=== PATIENT | female | born 1980 ===

== ENCOUNTER 2020-09-06 11:29 | Day surgery (SDC) | payer OTHER, SELFPAY ==
[2020-09-02 19:53] VITALS: BMI 33.1
--- NOTE | 2020-09-05 09:10 | HO.ANESPROP2 ---
Documented by User: Marileeher Pearsonney 09/05/20 09:11 HPI - Anesthesia Eval Consult details Narrative: 40yo F for Medial Branch Block,Bilateral Diagnostic L3,L4,L5, PMFSH Past Medical History Medical History Anxiety Asthma DISH (disseminated idiopathic skeletal hyperostosis) Fibromyalgia GERD (gastroesophageal reflux disease) Hiatal hernia History of headache History of lupus Surgical History Surgical History History of esophagogastroduodenoscopy (EGD) Hx of arthroscopy of knee Hx of cholecystectomy Hx of gastric bypass Social History Social History Smoking Status: Never smoker Second Hand Smoke Exposure: No Use of substances other than those prescribed or required for medical reasons: No Advance Directives: No Advance Directives Information Provided: No Advance Directives on File: No Recently lost weight without trying: No Meds Allergies Allergy/AdvReac Type Severity Reaction Status Date / Time sumatriptan [SUMATRIPTAN] Allergy Intermediate PALPITATION Verified 08/12/20 09:54 S Home Medications Medication Instructions Recorded Confirmed Type cholecalciferol (vitamin D3) 25 mcg PO DAILY 08/12/20 09/02/20 History [Vitamin D3] cyclobenzaprine 10 mg PO BEDTIME 08/12/20 09/02/20 History docusate sodium [DOK] 1 cap PO DAILY 08/12/20 09/02/20 History duloxetine 30 mg PO DAILY 08/12/20 09/02/20 History lansoprazole 30 mg PO DAILY 08/12/20 09/02/20 History nabumetone 1 tab PO BID 08/12/20 09/02/20 History sucralfate [Carafate] 10 ml PO BID 08/12/20 09/02/20 History venlafaxine 75 mg PO DAILY 08/12/20 09/02/20 History topiramate 25 mg PO DAILY 09/02/20 09/02/20 History Exam Exam Date and Time: September 05, 2020 0910 Height,Weight and Vital Signs: Height 5 ft 3 in Weight 84.822 kg Assessment and Plan Assessment Anesthesia Assessment: Chart Reviewed Documented by User: Nahid Pete MD 09/06/20 14:13 PMFSH Past Medical History Medical History Anxiety Asthma DISH (disseminated idiopathic skeletal hyperostosis) Fibromyalgia GERD (gastroesophageal reflux disease) Hiatal hernia History of headache History of lupus Surgical History Surgical History History of esophagogastroduodenoscopy (EGD) Hx of arthroscopy of knee Hx of cholecystectomy Hx of gastric bypass Social History Social History Smoking Status: Never smoker Second Hand Smoke Exposure: No Use of substances other than those prescribed or required for medical reasons: No Advance Directives: No Advance Directives Information Provided: No Advance Directives on File: No Recently lost weight without trying: No Meds Allergies Allergy/AdvReac Type Severity Reaction Status Date / Time sumatriptan [SUMATRIPTAN] Allergy Intermediate PALPITATION Verified 08/12/20 09:54 S Home Medications Medication Instructions Recorded Confirmed Type cholecalciferol (vitamin D3) 25 mcg PO DAILY 08/12/20 09/02/20 History [Vitamin D3] cyclobenzaprine 10 mg PO BEDTIME 08/12/20 09/02/20 History docusate sodium [DOK] 1 cap PO DAILY 08/12/20 09/02/20 History duloxetine 30 mg PO DAILY 08/12/20 09/02/20 History lansoprazole 30 mg PO DAILY 08/12/20 09/02/20 History nabumetone 1 tab PO BID 08/12/20 09/02/20 History sucralfate [Carafate] 10 ml PO BID 08/12/20 09/02/20 History venlafaxine 75 mg PO DAILY 08/12/20 09/02/20 History topiramate 25 mg PO DAILY 09/02/20 09/02/20 History Exam Airway Mallampati Class: I TM Dist: >3cm Neck ROM: Full Loose/Missing/Broken Teeth: No Heart: rrr Lungs: nl Other: ao Assessment and Plan Assessment Anesthesia Assessment: Anesthesia Plan Discussed and Chart Reviewed Final Anesthetic Review NPO: Yes ASA Class: II and III Final Preanesthetic Review: No Changes in Pt Med Stat, Meds/Allgs Chart Reviewed, Consent Obtained/Reviewed and Anes Risks/Benef Reviewed Patient Risk: Low Procedure Risk: Low Anesthetic Plan Anesthetic Plan: MAC: Disposition: Standard PACU
--- NOTE | 2020-09-06 08:18 | MHC.SHP ---
Pre-Procedural Eval Section B Chief Complaint: Spondylosis of lumbar Region Details of Present Illness: as above Relevant Family History (Specify if Yes): No Relevant Social History: None Present Medications: None Medical History: No relevant PMH History of Previous Operations: No relevant previous surgery Allergies: Allergies Allergy/AdvReac Type Severity Reaction Status Date / Time sumatriptan [SUMATRIPTAN] Allergy Intermediate PALPITATION Verified 08/12/20 09:54 S Review of Systems Sugical H&P ROS: Negative: Constitution, Cardiovascular, Respiratory, Neurological, Psychiatric, Hem-Onc, Allergic/Immunologic, Gastrointestinal, Genitourinary, Musculoskeletal, Integumentary, Endocrine and Eyes/Ears/Nose/Throat Exam Surgical H&P Exam: Normal: HEENT, Normal: Heart, Normal: Lungs, Normal: Extremities, Normal: Abdomen, Normal: Skin and Normal: Neurological Plan Diagnosis/Plan: Unchanged Patient has been examined and remains a candidate for the planned procedure
[2020-09-06 12:59] VITALS: BP 124/104; PULSE 90; RESP 18; TEMP 36.9; O2SAT 98
[2020-09-06 13:12] LABS: UPreg QC Valid YES; Urine Pregnancy NEGATIVE (NEGATIVE)
[2020-09-06] MEDS: Lactated Ringers 1,000 ML 100 ML IVCONT (13:15)
[2020-09-06 13:16] VITALS: BP 125/73; PULSE 84; RESP 18
--- NOTE | 2020-09-06 14:12 | MHC.SHP ---
Pre-Procedural Eval Section B Chief Complaint: Spondylosis of lumbar Region Relevant Family History (Specify if Yes): No Relevant Social History: None Present Medications: None Medical History: No relevant PMH History of Previous Operations: No relevant previous surgery Allergies: Allergies Allergy/AdvReac Type Severity Reaction Status Date / Time sumatriptan [SUMATRIPTAN] Allergy Intermediate PALPITATION Verified 08/12/20 09:54 S Review of Systems Sugical H&P ROS: Negative: Constitution, Cardiovascular, Respiratory, Neurological, Psychiatric, Hem-Onc, Allergic/Immunologic, Gastrointestinal, Genitourinary, Musculoskeletal, Integumentary, Endocrine and Eyes/Ears/Nose/Throat Exam Surgical H&P Exam: Normal: HEENT, Normal: Heart, Normal: Lungs, Normal: Extremities, Normal: Abdomen, Normal: Skin and Normal: Neurological Plan Diagnosis/Plan: Unchanged Patient has been examined and remains a candidate for the planned procedure
--- NOTE | 2020-09-06 14:14 | FL_ITS ---
EXAMINATION: XR FLUOROSCOPY WITH IMAGES CLINICAL INFORMATION: Medial branch block COMPARISON: MRI lumbar spine 01/10/2020 TECHNIQUE: Fluoroscopy performed by Dr. Jerry Wagner. Fluoroscopy time: 0.7 minutes DAP: 9.1 Gycm2 Images: 6 FINDINGS: There are bilateral spinal needles at the outer aspects of the L3, L4, and L5 neural foramen. Contrast is seen in the nerve sheaths with some transforaminal epidural extension. No visible vascular communication. FL/FL guidance in OR IMPRESSION: Fluoroscopy for pain management procedures.
[2020-09-06 14:47] VITALS: BP 129/83; PULSE 76; RESP 20; TEMP 37.1; O2SAT 99
[2020-09-06 15:03] VITALS: BP 124/77; PULSE 84; RESP 20; TEMP 37.1; O2SAT 99
--- NOTE | 2020-09-06 16:41 | PM.OP ---
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 Implants: None Surgeon: Jerry Wagner MD Anesthesia: MAC Estimated blood loss (mL): 0 Pathology: none sent Condition: stable Disposition: PACU
--- NOTE | 2020-09-06 16:43 | W.PM.OPN ---
Operative Note Operative Note Date of Service: 09/06/20 Narrative: Informed consent was explained to the patient. All questions were explained and answered. The patient was taken inside the operating room where she was positioned prone on the operating table. [employer] monitors were applied. Patient was deeply sedated. Opioids were avoided during the sedation. Time-out was performed delineating correct site, side, the nature of the procedure, patient's allergy, preoperative antibiotic if needed. All operating room staff was participating in OR time-out procedure. The lower back was prepped with ChloraPrep and draped with sterile towels. Sterilely draped C-arm was brought over the operating field and sq picture of L4-and L5 vertebra and S1 AREA were delineated on the screen. Point of interest were delineated as connection of superior articular process of L4 and L5 vertebra bilaterally with corresponding transverse processes as well as connection of the sacral alae bilaterally with superior articular process of S1. The projection of the point of interest to the skin were injected with the small amount of local anesthetic lidocaine 2% 1-1.5 cc. After that 22 gauge regular spinal needles were driven to the point of interest in tunnel vision fashion. After needles gently contacted the bone at the point of interests the needle was injected with small amount of bupivacaine 0.5%-1cc. Upon completion of the injections needles were removed and sterile dressings were applied patient was awaken and taking outside of the operating room to recovery room where she recovered uneventfully. She went home without immediate complications.
== END 2020-09-06 15:30 | disposition home or self-care (01) ==
PROVIDERS: Nurse Practitioner; PCP Internal Medicine; Visit Provider Anesthesiology
PROC: (CPT 64493; principal; 2020-09-06 13:50)
DX: M47.816 Spondylosis without myelopathy or radiculopathy, lumbar region (principal); M48.10 Ankylosing hyperostosis [Forestier], site unspecified; J45.909 Unspecified asthma, uncomplicated; Z98.84 Bariatric surgery status; Z79.899 Other long term (current) drug therapy; Z88.8 Allergy status to other drugs, medicaments and biological substances
CPT/HCPCS: 64493; 64494 ×2; 81025; J2250; J3010; Q9967

== ENCOUNTER 2020-09-24 19:48 | Emergency (ER) | payer OTHER, SELFPAY ==
[2020-09-24 20:02] VITALS: BP 137/80; PULSE 79; RESP 18; TEMP 35.7; O2SAT 98; BMI 32.9
--- NOTE | 2020-09-24 21:07 | XR_ITS ---
EXAMINATION: XR HIP, LEFT CLINICAL INFORMATION: Hip left hip on wall COMPARISON: CT abdomen pelvis 08/14/2019 TECHNIQUE: AP pelvis with AP and frog-leg lateral views of the left hip FINDINGS: No hip or pelvic fracture seen. There are degenerative changes of the bilateral hips with left greater than right lateral acetabular osteophytosis. Sacroiliac joints are maintained. Small enthesophyte at the greater trochanter. XR/XR hip LT w PEL1V IMPRESSION: No acute osseous abnormality. Degenerative changes.
--- NOTE | 2020-09-24 21:32 | ED_ITS ---
HPI - Fall General Chief Complaint: Fall Stated Complaint: fall work related Time Seen by Provider: 09/24/20 22:37 Source: patient Mode of arrival: ambulatory Limitations: no limitations History of Present Illness HPI Narrative: Patient presents to the ED for left hip pain after hitting left hip on the wall while doing decorations. Patient denies falling to the ground, hitting head, loss of consciousness, or any other physical complaints. Related Data Home Medications Medication Instructions Recorded Confirmed cholecalciferol (vitamin D3) 25 mcg PO DAILY 08/12/20 09/17/20 [Vitamin D3] cyclobenzaprine 10 mg PO BEDTIME 08/12/20 09/17/20 docusate sodium [DOK] 1 cap PO DAILY 08/12/20 09/17/20 lansoprazole 30 mg PO DAILY 08/12/20 09/17/20 nabumetone 1 tab PO BID 08/12/20 09/17/20 sucralfate [Carafate] 10 ml PO BID 08/12/20 09/17/20 venlafaxine 75 mg PO DAILY 08/12/20 09/17/20 topiramate 25 mg PO DAILY 09/02/20 09/17/20 spakxaappl-ncparmercxkqa-sjegnbow 1 tab PO DAILY PRN 09/17/20 09/17/20 50 mg-325 mg-40 mg tablet duloxetine 60 mg capsule,delayed 60 mg PO DAILY 09/17/20 09/17/20 release topiramate 50 mg tablet mg PO 09/17/20 09/17/20 Previous Rx's Medication Instructions Recorded hydroxyzine HCl 25 mg tablet 25 mg PO BID PRN 30 Days #60 tab 09/09/20 tramadol 50 mg tablet 100 mg PO Q6H PRN 30 Days #240 tab 09/09/20 pregabalin 50 mg capsule 50 mg PO BEDTIME 30 Days #30 cap 09/17/20 Allergies Allergy/AdvReac Type Severity Reaction Status Date / Time sumatriptan [SUMATRIPTAN] Allergy Intermediate PALPITATION Verified 09/24/20 20:07 S Review of Systems Review of Systems: Yes all other systems are reviewed and are negative Constitutional: Constitutional: Reports as per HPI and Reports no additional constitutional complaints Eyes: Eyes: Reports as per HPI and Reports no additional eye complaints ENT: Reports system reviewed and no additional complaints, except as documented and Reports as per HPI Cardiovascular: Cardiovascular: Reports as per HPI and Reports no additional cardiovascular complaints Respiratory: Respiratory: Reports as per HPI and Reports no additional respiratory complaints Gastrointestinal: Gastrointestinal: Reports as per HPI and Reports no additional gastrointestinal complaints Genitourinary: Genitourinary: Reports no additional female genitourinary complaints and Reports as per HPI Musculoskeletal: Musculoskeletal: Reports no additional musculoskeletal complaints, Reports as per HPI and Reports arthralgias ( Left hip) Neurologic: Reports system reviewed and no additional complaints, except as documented and Reports as per HPI Psychiatric: Psychiatric: Reports no additional psychiatric complaints and Reports as per HPI [facility] Past Medical History Medical History Anxiety Asthma DISH (disseminated idiopathic skeletal hyperostosis) Fibromyalgia Fibromyalgia GERD (gastroesophageal reflux disease) Hiatal hernia History of headache History of lupus Migraines Urticaria Surgical History History of esophagogastroduodenoscopy (EGD) Hx of arthroscopy of knee Hx of cholecystectomy Hx of gastric bypass Social History Social History Smoking Status: Never smoker Second Hand Smoke Exposure: No Advance Directives: No Advance Directives Information Provided: No Physical Exam Vital Signs: Vital Signs: Last Vital Signs Temp 96.3 F L 09/24/20 20:02 Pulse 90 09/24/20 22:00 Resp 16 09/24/20 22:00 BP 123/69 09/24/20 22:00 Pulse Ox 100 09/24/20 22:00 Body Mass Index 32.9 Const: General: cooperative, healthy appearing, comfortable, no acute distress, well developed, alert, awake and Physically active Orientation/consciousness: patient oriented x3 HENMT: Head: Yes normal to inspection, Yes No palpable skull fracture present, Yes normocephalic, Yes atraumatic, No abrasion, No Acrocyanosis present, No Hartmann's sign, No contusion, No cranial bruits, No hematoma, No laceration, No occipital foramen tenderness, No palpable skull fracture, No raccoon eyes, No scalp tenderness, No Temporal artery tenderness present and No periorbital ecchymosis Eyes: General: appearance normal, both eyes and all related structures Neck: Neck: Yes normal visual inspection, Yes full ROM, Yes no lymphadenopathy, Yes no meningeal signs, Yes trachea midline, Yes supple and No tender Chest: Chest palpation & inspection: normal inspection of the chest and normal palpation of entire chest wall Resp: Effort & Inspection: normal respiratory effort and able to speak in complete sentences Auscultation: clear to auscultation bilaterally Cardio: Jugular venous distension: no JVD Heart sounds: S1 normal heart sound present and S2 normal heart sound present GI: Inspection: Yes normal to inspection and No abdominal wall ecchymosis Palpation (GI): Soft to palpation, not firm, Tenderness to palpation present (GI) in the LLQ, no guarding and not rigid : General: No CVA tenderness and Yes no CVA tenderness Back/Spine/Pelvis: Back: no CVA tenderness, No CVA tenderness and No back tenderness Skin: General skin exam: no rashes or lesions noted Neuro: General: patient oriented x3, gait normal, no meningeal signs and CN's II-XI intact bilaterally Cranial nerves: Yes CN's II-XII intact bilaterally Extrem: Other: positive for left lateral hip tenderness on palpation. Negative for redness, ecchymosis, or external/internal rotation of lower extremity. General: Yes normal to inspection and Yes full ROM Psych: Appearance: grossly normal, well kempt and not disheveled Course Course Course Narrative: Patient will have x-ray to rule out any fracture. Reevaluation(s) Reevaluation #1: Patient x-ray came back normal. Patient is safe for discharge. Patient already have tramadol prescription Time: 21:45 MDM - Fall MDM Narrative Medical decision making narrative: Hip contusion Discharge Plan Discharge Clinical Impression: Contusion of hip Patient Disposition: Home, Self-Care Instructions: Hip Contusion (ED) Additional Instructions: return to the ED for worsening hip pain, swelling of lower extremity, inability to walk, redness, red streaks, calf pain, fever, chills, severe leg pain /thigh pain, or any other concerning symptoms. Continue taking tramadol as prescribed. Prescriptions: No Action tramadol 50 mg tablet 100 mg PO Q6H PRN (Reason: Pain) 30 Days Qty: 240 RF: 0 hydroxyzine HCl 25 mg tablet 25 mg PO BID PRN (Reason: itching) 30 Days Qty: 60 RF: 0 cyclobenzaprine 10 mg tablet 10 mg PO BEDTIME RF: 0 venlafaxine 75 mg capsule,extended release 24hr 75 mg PO DAILY RF: 0 nabumetone 750 mg tablet 1 tab PO BID RF: 0 sucralfate [Carafate] 100 mg/mL suspension 10 ml PO BID RF: 0 docusate sodium [DOK] 100 mg capsule 1 cap PO DAILY RF: 0 lansoprazole 30 mg tablet,disintegrat, delay rel 30 mg PO DAILY RF: 0 cholecalciferol (vitamin D3) [Vitamin D3] 25 mcg (1,000 unit) Tablet 25 mcg PO DAILY RF: 0 topiramate 25 mg Tablet 25 mg PO DAILY RF: 0 duloxetine 60 mg capsule,delayed release(DR/EC) 60 mg PO DAILY RF: 0 topiramate 50 mg tablet PO RF: 0 rurtmypkyz-admsggazcjeni-yiap 50-325-40 mg tablet 1 tab PO DAILY PRNRF: 0 pregabalin 50 mg capsule 50 mg PO BEDTIME 30 Days Qty: 30 RF: 0 Referrals: [facility] [Provider Group] - 2 days ( Left hip contusion from trauma.) Interventions: ED Discharge Assessment Last Done: 09/24/20 23:27 Print Language: [place] Islander
[2020-09-24 22:00] VITALS: BP 123/69; PULSE 90; RESP 16; O2SAT 100
== END 2020-09-24 23:27 | disposition home or self-care (01) ==
PROVIDERS: Emergency Provider Internal Medicine; PCP Internal Medicine
DX: S70.02XA Contusion of left hip, initial encounter (principal); M25.552 Pain in left hip; Y29.XXXA Contact with blunt object, undetermined intent, initial encounter; Y93.9 Activity, unspecified; Y92.009 Unspecified place in unspecified non-institutional (private) residence as the place of occurrence of the external cause; Y99.9 Unspecified external cause status; Z79.899 Other long term (current) drug therapy
CPT/HCPCS: 73502; 99283; 99284

== ENCOUNTER 2020-10-12 07:53 | Outpatient (REF) | payer OTHER, SELFPAY | END 2020-10-12 07:54 | disposition home or self-care (01) | LOC: HO.LAB 07:53 | PROVIDERS: PCP Internal Medicine; Visit Provider Internal Medicine | DX: Z20.828 Contact with and (suspected) exposure to other viral communicable diseases (principal) | CPT/HCPCS: C9803; U0003 ==

== ENCOUNTER 2020-10-19 08:15 | Outpatient (REF) | payer OTHER, SELFPAY | END 2020-10-19 08:16 | disposition home or self-care (01) | LOC: HO.LAB 08:15 | PROVIDERS: Visit Provider Internal Medicine | DX: Z20.828 Contact with and (suspected) exposure to other viral communicable diseases (principal) | CPT/HCPCS: C9803; U0003 ==

== ENCOUNTER 2020-11-15 11:59 | Day surgery (SDC) | payer OTHER, SELFPAY ==
[2020-11-11 09:49] VITALS: BMI 33.1
--- NOTE | 2020-11-14 10:32 | HO.ANESPROP2 ---
Documented by User: Marilee San 11/14/20 10:43 HPI - Anesthesia Eval Consult details Narrative: 40yo F for Medial Branch Block,L3-L4, L5 [facility] Past Medical History Medical History Anxiety Asthma DISH (disseminated idiopathic skeletal hyperostosis) Fibromyalgia GERD (gastroesophageal reflux disease) Hiatal hernia Hip pain History of lupus Migraines Urticaria Family History Family History Father CVD (cardiovascular disease) Mother Hypertension Rheumatoid arthritis Lupus Maternal Grandmother CAD (coronary artery disease) Diabetes Maternal Grandfather CAD (coronary artery disease) Diabetes Family/Other FH: mental illness Surgical History Surgical History History of esophagogastroduodenoscopy (EGD) Hx of arthroscopy of knee Hx of cholecystectomy Hx of gastric bypass Social History Social History Are you a primary ambulatory care coordinator to a significant other at home: No Do you presently have visiting nurse or other home services: No Smoking Status: Never smoker Second Hand Smoke Exposure: No Use of substances other than those prescribed or required for medical reasons: No Have you been hit, kicked, punched, or otherwise hurt by someone within the past year? If so, by whom?: No Advance Directives: No Advance Directives Information Provided: No Advance Directives on File: No Recently lost weight without trying: No Meds Allergies Allergy/AdvReac Type Severity Reaction Status Date / Time sumatriptan [SUMATRIPTAN] Allergy Intermediate PALPITATION Verified 11/11/20 09:32 S Home Medications Medication Instructions Recorded Confirmed Type cholecalciferol (vitamin D3) 25 mcg PO DAILY 08/12/20 11/11/20 History [Vitamin D3] docusate sodium [DOK] 1 cap PO DAILY 08/12/20 11/11/20 History lansoprazole 30 mg PO DAILY 08/12/20 11/11/20 History sucralfate [Carafate] 10 ml PO BID 08/12/20 11/11/20 History venlafaxine 75 mg PO DAILY 08/12/20 11/11/20 History topiramate 25 mg PO DAILY 09/02/20 11/11/20 History gtqvidbflz-jrsimfsfciglf-coulcbkz 1 tab PO DAILY PRN 09/17/20 11/11/20 History 50 mg-325 mg-40 mg tablet Exam Exam Date and Time: November 14, 2020 1032 Height,Weight and Vital Signs: Height 5 ft 3 in Weight 84.822 kg Assessment and Plan Assessment Anesthesia Assessment: Chart Reviewed Documented by User: Robbin Garibay 11/15/20 13:23 [facility] Past Medical History Medical History Anxiety Asthma DISH (disseminated idiopathic skeletal hyperostosis) Fibromyalgia GERD (gastroesophageal reflux disease) Hiatal hernia Hip pain History of lupus Migraines Urticaria Family History Family History Father CVD (cardiovascular disease) Mother Hypertension Rheumatoid arthritis Lupus Maternal Grandmother CAD (coronary artery disease) Diabetes Maternal Grandfather CAD (coronary artery disease) Diabetes Family/Other FH: mental illness Surgical History Surgical History History of esophagogastroduodenoscopy (EGD) Hx of arthroscopy of knee Hx of cholecystectomy Hx of gastric bypass Social History Social History Are you a primary ambulatory care coordinator to a significant other at home: No Do you presently have visiting nurse or other home services: No Smoking Status: Never smoker Second Hand Smoke Exposure: No Use of substances other than those prescribed or required for medical reasons: No Have you been hit, kicked, punched, or otherwise hurt by someone within the past year? If so, by whom?: No Advance Directives: No Advance Directives Information Provided: No Advance Directives on File: No Recently lost weight without trying: No Meds Allergies Allergy/AdvReac Type Severity Reaction Status Date / Time sumatriptan [SUMATRIPTAN] Allergy Intermediate PALPITATION Verified 11/11/20 09:32 S Home Medications Medication Instructions Recorded Confirmed Type cholecalciferol (vitamin D3) 25 mcg PO DAILY 08/12/20 11/11/20 History [Vitamin D3] docusate sodium [DOK] 1 cap PO DAILY 08/12/20 11/11/20 History lansoprazole 30 mg PO DAILY 08/12/20 11/11/20 History sucralfate [Carafate] 10 ml PO BID 08/12/20 11/11/20 History venlafaxine 75 mg PO DAILY 08/12/20 11/11/20 History topiramate 25 mg PO DAILY 09/02/20 11/11/20 History kxupqvslea-njrkagdvhcnac-vchunzmj 1 tab PO DAILY PRN 09/17/20 11/11/20 History 50 mg-325 mg-40 mg tablet Exam Airway Mallampati Class: I TM Dist: >3cm Neck ROM: Full
[2020-11-15 13:25] VITALS: BP 140/84; PULSE 84; RESP 16; TEMP 36.8; O2SAT 100
[2020-11-15 13:27] LABS: UPreg QC Valid YES; Urine Pregnancy NEGATIVE (NEGATIVE)
[2020-11-15] MEDS: Lactated Ringers 1,000 ML 100 ML IVCONT (13:50)
--- NOTE | 2020-11-15 14:03 | MHC.SHP ---
Pre-Procedural Eval Section B Chief Complaint: spondylosis w/o myelopathy radiculopathy,lumbar Details of Present Illness: as above Relevant Family History (Specify if Yes): No Relevant Social History: None Present Medications: None Medical History: No relevant PMH History of Previous Operations: No relevant previous surgery Allergies: Allergies Allergy/AdvReac Type Severity Reaction Status Date / Time sumatriptan [SUMATRIPTAN] Allergy Intermediate PALPITATION Verified 11/11/20 09:32 S Review of Systems Sugical H&P ROS: Negative: Constitution, Cardiovascular, Respiratory, Neurological, Psychiatric, Hem-Onc, Allergic/Immunologic, Gastrointestinal, Genitourinary, Musculoskeletal, Integumentary, Endocrine and Eyes/Ears/Nose/Throat Exam Surgical H&P Exam: Normal: HEENT, Normal: Heart, Normal: Lungs, Normal: Extremities, Normal: Abdomen, Normal: Skin and Normal: Neurological Plan Diagnosis/Plan: Unchanged I have reviewed the history and physical and performed a pertinent physical examination on my patient. No changes have occurred unless specified.
--- NOTE | 2020-11-15 14:35 | FL_ITS ---
EXAMINATION: XR FLUOROSCOPY WITH IMAGES CLINICAL INFORMATION: Medial branch block L3, L4, L5 bilateral TECHNIQUE: Fluoroscopy time: 0.6 minutes DAP: 5.59 mGycm2 Images: 6 FINDINGS: Multiple intraoperative fluoroscopic images are submitted during reported medial branch block of L3, L4, and bilateral L5. Correlation with operative report. Evaluation is limited secondary to fluoroscopic technique. IMPRESSION: Intra-operative fluoroscopic imaging provided by radiology during reported medial branch block of L3, L4, and bilateral L5. Please refer to operative note for further information.
--- NOTE | 2020-11-15 15:09 | PM.OP ---
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
[2020-11-15 15:11] VITALS: BP 142/83; PULSE 80; RESP 14; TEMP 36.9; O2SAT 100
[2020-11-15 15:25] VITALS: BP 141/84; PULSE 74; RESP 18; O2SAT 100
--- NOTE | 2020-11-15 16:21 | W.PM.OPN ---
Operative Note Operative Note Date of Service: 11/15/20 Narrative: Informed consent was explained to the patient. All questions were explained and answered. The patient was taken inside the operating room where she was positioned prone on the operating table.. The patient was taken inside of the operating room where was positioned prone operating table. Time-out was performed delineating correct site, side, the nature of the procedure, patient's allergy, preoperative antibiotic if needed. All operating room staff was participating in OR time-out procedure. The lower back was prepped with ChloraPrep and draped with sterile towels. Sterilely draped C-arm was brought over the operating field and square picture of L4-and L5 vertebra and S1 AREA were delineated on the screen. Point of interest were delineated as connection of superior articular process of L3, L4 and L5 vertebra bilaterally with corresponding transverse processes, as well as connection of the sacral alae bilaterally with superior articular process of S1. The projections of the point of interest to the skin were injected with the small amount of local anesthetic lidocaine 2% 1-1.5 cc. After that 22 gauge QP spinal needles were driven to the point of interest in tunnel vision fashion. After needles gently contacted the bone at the point of interests the needle was injected with small amount of bupivacaine 0.5%-1cc mixad with kenalog. Total dose of kenalog was 80 mg.. Upon completion of the injections needles were removed and sterile dressings were applied patient was awaken and taken outside of the operating room to recovery room where the patient recovered uneventfully. The patient went home without immediate complications.
== END 2020-11-15 15:50 | disposition home or self-care (01) ==
PROVIDERS: Nurse Practitioner; PCP Internal Medicine; Visit Provider Anesthesiology
PROC: (CPT 64493; principal; 2020-11-15 13:10)
DX: M47.816 Spondylosis without myelopathy or radiculopathy, lumbar region (principal); M54.17 Radiculopathy, lumbosacral region; M48.10 Ankylosing hyperostosis [Forestier], site unspecified; J45.909 Unspecified asthma, uncomplicated; M32.10 Systemic lupus erythematosus, organ or system involvement unspecified; Z90.49 Acquired absence of other specified parts of digestive tract; Z98.84 Bariatric surgery status; Z88.8 Allergy status to other drugs, medicaments and biological substances
CPT/HCPCS: 64493; 64494 ×2; 81025; J1200; J2250; J3010; J3300; Q9967

== ENCOUNTER → 2021-01-01 09:45 | Outpatient (BNVA) | payer OTHER, SELFPAY | PROVIDERS: Visit Provider Anesthesiology | DX: M47.816 Spondylosis without myelopathy or radiculopathy, lumbar region (principal); M47.817 Spondylosis without myelopathy or radiculopathy, lumbosacral region; Z79.899 Other long term (current) drug therapy | CPT/HCPCS: 99212 ==

== ENCOUNTER 2021-01-28 08:08 | Outpatient (REF) | payer OTHER, SELFPAY ==
[2021-01-28 10:11] LABS: Alanine Aminotransferase 11 U/L (0-31); Albumin Level 3.8 g/dL (3.5-5.0); Alkaline Phosphatase 68 U/L (39-117); Anion Gap 11 (12-20); Aspartate Amino Transferase 13 U/L (5-31); Bilirubin Total 0.2 mg/dL (0.0-1.0); Blood Urea Nitrogen 19 mg/dL (9-16); Calcium 8.5 mg/dL (8.4-10.2); Carbon Dioxide 23 mmol/L (22-29); Chloride 108 mmol/L (96-108); Estimated Glomerular Filt Rate > 60; Glucose Random 66 mg/dL (60-115); Potassium 4.8 mmol/L (3.3-5.1); Sodium 137 mmol/L (135-145); Total Protein 7.2 g/dL (6.5-8.0)
== END 2021-01-28 08:09 | disposition home or self-care (01) ==
LOC: HO.LAB 08:08
PROVIDERS: PCP Internal Medicine; Visit Provider Student in an Organized Health Care Education/Training Program
DX: M48.10 Ankylosing hyperostosis [Forestier], site unspecified (principal); M79.7 Fibromyalgia; F32.9 Major depressive disorder, single episode, unspecified; Z79.891 Long term (current) use of opiate analgesic; Z79.899 Other long term (current) drug therapy
CPT/HCPCS: 36415; 80053; 99212

== ENCOUNTER 2021-02-03 06:45 | Outpatient (REF) | payer OTHER, SELFPAY ==
[2021-02-03 07:55] LABS: Alanine Aminotransferase 14 U/L (0-31); Albumin Level 3.6 g/dL (3.5-5.0); Alkaline Phosphatase 64 U/L (39-117); Anion Gap 11 (12-20); Aspartate Amino Transferase 16 U/L (5-31); Bilirubin Total 0.5 mg/dL (0.0-1.0); Blood Urea Nitrogen 19 mg/dL (9-16); Calcium 8.3 mg/dL (8.4-10.2); Carbon Dioxide 22 mmol/L (22-29); Chloride 111 mmol/L (96-108); Estimated Glomerular Filt Rate > 60; Glucose Fasting 97 mg/dL (60-99); Potassium 4.5 mmol/L (3.3-5.1); Sodium 139 mmol/L (135-145); Total Protein 6.8 g/dL (6.5-8.0)
[2021-02-03 08:01] LABS: HCG Quantitative < 2 mIU/mL
[2021-02-04 11:22] LABS: Insulin Level Total 5.3 uIU/mL
== END 2021-02-03 06:46 | disposition home or self-care (01) ==
LOC: HO.LAB 06:45
PROVIDERS: PCP Internal Medicine; Visit Provider Internal Medicine
DX: R55 Syncope and collapse (principal); N92.6 Irregular menstruation, unspecified; E16.2 Hypoglycemia, unspecified
CPT/HCPCS: 36415; 80053; 82943; 83525; 84702

== ENCOUNTER 2021-02-24 14:42 | Outpatient (REF) | payer OTHER, SELFPAY ==
--- NOTE | ~2021-02-24 | US_ITS ---
EXAMINATION: US EXTRACRANIAL CAROTID DUPLEX, BILATERAL CLINICAL INFORMATION: This is a 40-year-old female with syncope. Possible carotid artery disease. COMPARISON: None TECHNIQUE: Real-time ultrasound and Doppler techniques (integrating B-mode 2-D vascular images, Doppler spectral analysis and color-flow Doppler imaging) were utilized to interrogate the extracranial carotid arteries, the vertebral arteries and proximal subclavian arteries bilaterally. The degree of stenosis is determined by criteria similar to NASCET. FINDINGS: Right Side: 1. There is no atherosclerotic plaque seen in the bifurcation/proximal ICA region. 2. The common carotid artery PSV proximally is 113 cm/s and distally 85 cm/s. 3. The proximal internal carotid artery velocities are 77 cm/s systolic and 32 cm/s diastolic. 4. The proximal external carotid artery PSV is 80 cm/s. 5. The vertebral artery shows antegrade flow. 6. The subclavian artery waveforms are normal. Left Side: 1. There is no atherosclerotic plaque seen in the bifurcation/proximal ICA region. 2. The common carotid artery PSV proximally is 125 cm/s and distally 95 cm/s. 3. The proximal internal carotid artery velocities are 125 cm/s systolic and before cm/s diastolic. 4. The proximal external carotid artery PSV is 66 cm/s. 5. The vertebral artery shows antegrade flow. 6. The subclavian artery waveforms are normal. US/US carotid duplex BI IMPRESSION: 1. RIGHT: Normal right internal carotid artery without atherosclerotic plaque or hemodynamically significant stenosis. 2. LEFT: Normal left internal carotid artery without atherosclerotic plaque or hemodynamically significant stenosis.
== END 2021-02-24 14:43 | disposition home or self-care (01) ==
LOC: HO.US 14:42
PROVIDERS: PCP Internal Medicine; Visit Provider Internal Medicine
DX: R55 Syncope and collapse (principal)
CPT/HCPCS: 93880

== ENCOUNTER 2021-02-25 07:35 | Outpatient (REF) | payer OTHER, SELFPAY ==
--- NOTE | ~2021-02-25 | CT_ITS ---
EXAMINATION: CT HEAD WITHOUT CONTRAST CLINICAL INFORMATION: Syncope and collapse COMPARISON: Previous brain MRI May [address] without contrast June 2017 TECHNIQUE: Contiguous axial imaging was performed from the skull base to vertex without intravenous administration of contrast. This CT examination was performed using dose optimization techniques as appropriate, variously including the following: *Automated exposure control *Adjustment of mA and/or kV according to patient size (this includes techniques or standardized protocols for targeted exams where dose is matched to indication/reason for exam; i.e. extremities or head) *Use of iterative reconstruction technique DLP: 682 mGy-cm FINDINGS: There is no evidence of acute intracranial hemorrhage or territorial infarction. No abnormal mass effect or midline shift is seen. Hope to white matter differentiation is well preserved. No extra-axial fluid collections are identified. The ventricles are normal in size. There is no abnormal attenuation within the brain parenchyma. The osseous structures and soft tissues are normal. The mastoid air cells and visualized portions of the paranasal sinuses are well aerated. CT/CT head/brain wo con IMPRESSION: Unremarkable exam.
== END 2021-02-25 07:36 | disposition home or self-care (01) ==
LOC: HO.CT 07:35
PROVIDERS: PCP Internal Medicine; Visit Provider Internal Medicine
DX: R55 Syncope and collapse (principal)
CPT/HCPCS: 70450

== ENCOUNTER → 2021-03-25 07:46 | Outpatient (BNVA) | payer OTHER, SELFPAY | PROVIDERS: PCP Internal Medicine; Visit Provider Internal Medicine Endocrinology, Diabetes & Metabolism | DX: E16.2 Hypoglycemia, unspecified (principal) | CPT/HCPCS: 99202 ==

== ENCOUNTER 2021-03-26 07:51 | Outpatient (REF) | payer OTHER, SELFPAY ==
[2021-03-26 08:43] LABS: Anion Gap 10 (12-20); Blood Urea Nitrogen 16 mg/dL (9-16); Carbon Dioxide 26 mmol/L (22-29); Chloride 108 mmol/L (96-108); Estimated Glomerular Filt Rate > 60; Glucose Fasting 96 mg/dL (60-99); Potassium 4.3 mmol/L (3.3-5.1); Sodium 140 mmol/L (135-145)
[2021-03-26 09:06] LABS: Free T4 (Free Thyroxine) 1.17 ng/dL (0.71-1.85); Thyroid Stimulating Hormone 0.77 uIU/mL (0.32-4.0)
[2021-03-26 09:15] LABS: Glucose Fasting 97 mg/dL (60-99)
[2021-03-26 10:36] LABS: Glucose 1 Hour 135 mg/dL
[2021-03-26 11:27] LABS: Glucose 2 Hour 29 mg/dL
[2021-03-28 19:11] LABS: C Peptide 1.24 ng/mL (0.80-3.85); Insulin Level Total 7.9 uIU/mL
[2021-03-31 22:46] LABS: Adrenocorticotropic Hormone 9 pg/mL (6-50)
[2021-04-01 14:06] LABS: Beta Hydroxybutyric Acid 0.4 mg/dL (0.0-3.0)
[2021-04-02 04:57] LABS: Proinsulin 4.3 pmol/L (< OR = 18.8)
[2021-04-02 22:03] LABS: Insulinoma associated 2 aatb <5.4 U/mL (<5.4)
[2021-04-04 15:02] LABS: Chlorpropamide None Detected; Glimepiride None Detected; Glipizide None Detected; Glyburide None Detected; Nateglinide None Detected; Pioglitazone None Detected; Repaglinide None Detected; Rosiglitazone None Detected; Tolazamide None Detected; Tolbutamide None Detected
[2021-04-04 15:52] LABS: Insulin Growth Factor 2 403 ng/mL (267-616)
[2021-04-06 01:26] LABS: Insulin Auto Antibody <0.4 U/mL (<0.4)
== END 2021-03-26 07:52 | disposition home or self-care (01) ==
LOC: HO.LAB 07:51
PROVIDERS: PCP Internal Medicine; Visit Provider Internal Medicine Endocrinology, Diabetes & Metabolism
DX: E16.2 Hypoglycemia, unspecified (principal)
CPT/HCPCS: 36415; 80048; 80337; 82024; 82533; 82952; 83525; 83789; 84206; 84439; 84443; 84681; 86337

== ENCOUNTER → 2021-03-27 10:42 | Outpatient (BNVA) | payer OTHER, SELFPAY | PROVIDERS: PCP Internal Medicine; Visit Provider Dietitian, Registered | DX: E66.9 Obesity, unspecified (principal); E16.2 Hypoglycemia, unspecified | CPT/HCPCS: 97802 ==

== ENCOUNTER 2021-04-03 12:45 | Outpatient (REF) | payer OTHER, SELFPAY ==
--- NOTE | 2021-04-03 13:00 | EEG_ITS ---
This is a 24-hour ambulatory EEG. The patient kept a diary and did not report any significant events. The patient transitioned into wakefulness and sleep during the tracing. Background EEG rhythm during wakefulness was alpha posteriorly, lower amplitude fast anteriorly. The patient transitioned into stage N1 to N3 sleep. No definite sharp wave spikes or paroxysmal tendencies noted. IMPRESSION: Unremarkable 24-hour ambulatory EEG with patient not reporting any events. MD SCOTTY Malik/TERESITA / [id number]
== END 2021-04-03 12:46 | disposition home or self-care (01) ==
LOC: HO.NEURO 12:45
PROVIDERS: PCP Internal Medicine; Visit Provider Internal Medicine
DX: R55 Syncope and collapse (principal)
CPT/HCPCS: 95708

== ENCOUNTER → 2021-04-11 07:40 | Outpatient (REF) | payer OTHER, SELFPAY ==
--- NOTE | 2021-04-11 07:44 | CA_ITS ---
Transthoracic Echocardiogram Amended Patient (Last, First, Middle): Tonie Fischer, Gender: Female Date of : 1980 Age: 40 Procedure Date: 04/11/2021 Procedure Type: Transthoracic Echocardiogram Location: OP Height: 160.02 cm Weight: 87.09 kg BSA: 1.90 m2 Heart Rate: bpm BP: 138 / 90 mmHg Automotive Diagnostic Technician: DSSabina Referring MD: Muriel Julian MD Symptoms: R55 - Syncope and collapse Conclusions: - Normal left ventricular size and systolic function. - Diastolic function is normal for age. - Normal right ventricular cavity size and systolic function. Findings Left Ventricle Normal left ventricular size and systolic function. There is mildly increased left ventricular wall thickness. The visually estimated ejection fraction is between 55-60%. There is no evidence of regional wall motion abnormalities. Diastolic function is normal for age. Right Ventricle Normal right ventricular cavity size and systolic function. Atria Both atria are normal in size. Aortic Valve Normal aortic valve structure and function. There is no aortic valve stenosis. There is no aortic valve regurgitation. Mitral Valve Normal mitral valve structure and function. There is no mitral valve regurgitation. There is no mitral valve stenosis. Pulmonic Valve Normal pulmonic valve structure and function. There is no pulmonic valve regurgitation. Tricuspid Valve Normal tricuspid valve structure and function. There is no tricuspid valve regurgitation. Tricuspid regurgitation envelope is inadequate for calculation of right ventricular systolic pressure. Normal right atrial pressure. Great Vessels All visible segments of the aorta are normal in size. The visualized portions of the pulmonary artery and branches are normal. Venous The inferior vena cava is normal in size and collapses greater than 50% with inspiration. Pericardium/Pleural There is no evidence of pericardial effusion. Prior Study Comparison No prior study available for comparison. Measurements 2D Linear Measurements IVSd: 0.88 0.6-0.9/0.6-1.0 cm LVIDd: 4.34 3.9-5.3/4.2-5.9 cm LVIDd Index: 2.28 2.4-3.2/2.2-3.1 cm/m2 LVIDs: 2.78 2.0-3.6 cm LVPWd: 1.02 0.7-1.1 cm Ao Root: 2.40 2.1-3.5 cm LA Diam: 3.10 2.7-3.8/3.0-4.0 cm LAIDs Index: 1.63 1.5-2.3 cm/m2 LV Mass: 167.92 67-162/88-224 g LV Mass Index: 88.38 43-95/49-115 g/m2 LVOT Diam: 1.90 3.0+(-)1.3 cm 2D Volumes LA Vol: 13.80 2D Systolic Function EF 4C: 50.00 >55% EF 2C: 60.40 >55% EF BiP: 55.20 >55% Mitral Valve MV Pk E: 0.77 MV PK A: 0.56 MV Decel Time: 134.00 E/A: 1.40 E'Lateral: 11.20 E'Medial: 9.25 E/E' Med: 8.30 E/E' Lat: 6.90 PHT: 39.00 MVA PHT: 5.64 Decel Trego: 5.76 Aortic Valve AoV Pk Wagner: 1.37 AoV Pk Grad: 8.00 LVOT LVOT Pk Wagner: 0.98 LVOT Mn Wagner: 0.62 LVOT VTI: 0.18 LVOT Pk Grad: 4.00 LVOT Mn Grad: 2.00 LVOT Diam: 1.90 LVOT Area: 2.84 Diastolic Function MV Pk E: 0.77 MV Pk A: 0.56 E/A: 1.40 E'Medial: 9.25 E/E' Med: 8.30 E' Laterial: 11.20 E/E' Lat: 6.90 Tricuspid Valve RA Press: 3.00 Great Vessels Aorta Ao Root-2D: 2.40 2.0-3.7 cm Ao Asc: 2.60 2.1-3.4 cm Updated in Other Vendor System with Status of Final Morteza Hennessy MD electronically signed on 04/14/2021 8:44:44 PM with status of Final
--- NOTE | 2021-04-11 08:00 | ECG_ITS ---
Hook-up date: 2021-04-11 09:28:00 Duration: 47:59:00 Test Indications: SYNCOPE Medications: [id number] QRS complexes 25 Ventricular ectopics which represent <1 % of total QRS comp. 12 Supraventricular ectopics which represent <1 % of total QRS comp. * Paced QRS complexs which represent % of total QRS comp. VENTRICULAR ECTOPY 21 Isolated 0 Bigeminal Cycles 2 Couplets 0 Runs 0 Beats in Runs * Beats LONGEST at * BPM at :: -- * Beats FASTEST at * BPM at :: -- SUPRAVENTRICULAR ECTOPY 8 Isolated 2 Couplets 0 Runs 0 Beats in Runs * Beats LONGEST at * BPM at :: -- * Beats FASTEST at * BPM at :: -- HEART RATES 57 MIN at 07:49:33 2021-04-13 88 AVG 158 MAX at 16:00:52 2021-04-11 LONGEST RR 1.0960 secs at 07:49:31 2021-04-13 S-T LEVELS Channel 1 - 128 mm at 09:28:00 2021-04-11 - 128 mm at 09:28:00 2021-04-11 Channel 2 - 128 mm at 09:28:00 2021-04-11 - 128 mm at 09:28:00 2021-04-11 Channel 3 - 128 mm at 02:84:71 -- - 128 mm at 02:84:71 Basic rhythm Normal sinus rhythm No long pause or profound bradycardia Rare ectopics Patient did not report any symptoms in the diary I was requested to read this Holter on 05/09/2021 Referred By: Muriel Julian Overread By: LESLIE JAIME MD
== END ==
LOC: HO.CARD 07:40
PROVIDERS: Visit Provider Internal Medicine
DX: R55 Syncope and collapse (principal)
CPT/HCPCS: 93225; 93226; 93306

== ENCOUNTER → 2021-04-14 09:31 | Outpatient (BNVA) | payer OTHER, SELFPAY | PROVIDERS: PCP Internal Medicine; Visit Provider Internal Medicine | DX: E16.1 Other hypoglycemia (principal); R55 Syncope and collapse | CPT/HCPCS: 93005; 99202 ==

== ENCOUNTER 2021-04-18 12:05 | Day surgery (SDC) | payer OTHER, SELFPAY ==
[2021-04-14 14:00] VITALS: BMI 33.1
--- NOTE | 2021-04-17 10:14 | P.CONAN_ITS ---
HPI - Anesthesia Eval Consult details Narrative: 40yo F for L3-L4- DR L5 Medial Branch Blocks Recent negative cardiac w/u for syncope. Possible hypoglycemic etiology. Cannot r/o vasovagal. s/p same 10/2020 with MAC tramadol daily PMFSH Active Problems Active Problems: All Active Problems (Updated 04/10/21 @ 09:10 by Kanika Baltazar MD) Depression (Acute) Obesity (Acute) Reactive hypoglycemia (Acute) Hypoglycemia (Acute) Syncope (Acute) DISH (diffuse idiopathic skeletal hyperostosis) (Acute) Arthropathy of lumbosacral facet joint (Acute) Spondylosis of lumbar region without myelopathy or radiculopathy (Acute) Hip pain (Acute) Migraines (Acute) Fibromyalgia (Acute) Urticaria (Acute) Past Medical History Medical History Anxiety Arthropathy of lumbosacral facet joint Asthma DISH (diffuse idiopathic skeletal hyperostosis) DISH (disseminated idiopathic skeletal hyperostosis) Fibromyalgia GERD (gastroesophageal reflux disease) Hiatal hernia Hip pain History of lupus Hypoglycemia Migraines Reactive hypoglycemia Spondylosis of lumbar region without myelopathy or radiculopathy Syncope Urticaria Family History Family History Father CVD (cardiovascular disease) Mother Hypertension Rheumatoid arthritis Lupus Maternal Grandmother CAD (coronary artery disease) Diabetes Maternal Grandfather CAD (coronary artery disease) Diabetes Family/Other FH: mental illness Surgical History Surgical History History of esophagogastroduodenoscopy (EGD) History of surgery Hx of arthroscopy of knee Hx of cholecystectomy Hx of gastric bypass Social History Social History Are you a primary career information specialist to a significant other at home: No Do you presently have visiting nurse or other home services: No Alcohol intake: never Patient Tobacco Use Status: Never used Tobacco Second Hand Smoke Exposure: No Meds Allergies Allergy/AdvReac Type Severity Reaction Status Date / Time sumatriptan [SUMATRIPTAN] AdvReac Intermediate PALPITATION Verified 04/18/21 12:13 S Home Medications Medication Instructions Recorded Confirmed Last Taken Type cholecalciferol (vitamin D3) 25 mcg PO DAILY 08/12/20 04/14/21 Unknown History [Vitamin D3] docusate sodium [DOK] 1 cap PO DAILY 08/12/20 04/14/21 Unknown History lansoprazole 30 mg PO DAILY 08/12/20 04/14/21 04/18/21 06:30 History venlafaxine 75 mg PO DAILY 08/12/20 04/14/21 04/18/21 06:30 History ykrnukboof-fosnpdttkmwtp-wvmgmyoz 1 tab PO DAILY PRN 09/17/20 04/14/21 Unknown History 50 mg-325 mg-40 mg tablet topiramate 50 mg tablet 50 mg PO BEDTIME 01/30/21 04/14/21 Unknown History Exam Exam Date and Time: April 17, 2021 1014 Height,Weight and Vital Signs: Height 5 ft 3 in Weight 84.822 kg Pertinent Lab Results Pertinent Lab Results: Laboratory Tests 03/26/21 08:10 Sodium 140 Potassium 4.3 Chloride 108 Carbon Dioxide 26 BUN 16 Creatinine 0.76 Narrative Narrative: Per cardiac visit RE: syncope Echocardiogram does not show any structural abnormalities. EKG is unremarkable. Carotid Dopplers do not show any significant stenosis. Presentation is very atypical for any cardiogenic forms of syncope. Doubt orthostatic hypotension as well. Hypoglycemia is thought to be possibly playing a role, but not clear if that is the definitive etiology. Vasovagal forms are still possible. Treatment of the hypoglycemia per Endocrine. If symptoms persist, then possibly tilt-table testing. Assessment and Plan Assessment Anesthesia Assessment: Chart Reviewed
--- NOTE | ~2021-04-18 | FL_ITS ---
EXAMINATION: XR FLUOROSCOPY WITH IMAGES CLINICAL INFORMATION: Medial branch blocks. Pain management procedures. COMPARISON: Fluoroscopy with images 11/15/2020 TECHNIQUE: Fluoroscopy performed by Dr. Jerry Wagner. Fluoroscopy time: 0.8 minutes DAP: 20.6 Gycm2 Images: 6 FINDINGS: There are spinal needles overlying the bilateral outer L3, L4, and L5 neural foramen. There is contrast seen in the respective nerve sheaths. Some early transforaminal epidural extension is suggested. No visible vascular communication. FL/FL guidance in OR IMPRESSION: Fluoroscopy for pain management procedures.
[2021-04-18 12:19] VITALS: BP 128/79; PULSE 75; RESP 16; TEMP 36.3; O2SAT 100
[2021-04-18 12:38] LABS: UPreg QC Valid YES; Urine Pregnancy NEGATIVE (NEGATIVE)
--- NOTE | 2021-04-18 12:45 | P.CONAN_ITS ---
[facility] Active Problems Active Problems: All Active Problems (Updated 04/10/21 @ 09:10 by Kanika Baltazar MD) Depression (Acute) Obesity (Acute) Reactive hypoglycemia (Acute) Hypoglycemia (Acute) Syncope (Acute) DISH (diffuse idiopathic skeletal hyperostosis) (Acute) Arthropathy of lumbosacral facet joint (Acute) Spondylosis of lumbar region without myelopathy or radiculopathy (Acute) Hip pain (Acute) Migraines (Acute) Fibromyalgia (Acute) Urticaria (Acute) Past Medical History Medical History Anxiety Arthropathy of lumbosacral facet joint Asthma DISH (diffuse idiopathic skeletal hyperostosis) DISH (disseminated idiopathic skeletal hyperostosis) Fibromyalgia GERD (gastroesophageal reflux disease) Hiatal hernia Hip pain History of lupus Hypoglycemia Migraines Reactive hypoglycemia Spondylosis of lumbar region without myelopathy or radiculopathy Syncope Urticaria Family History Family History Father CVD (cardiovascular disease) Mother Hypertension Rheumatoid arthritis Lupus Maternal Grandmother CAD (coronary artery disease) Diabetes Maternal Grandfather CAD (coronary artery disease) Diabetes Family/Other FH: mental illness Surgical History Surgical History History of esophagogastroduodenoscopy (EGD) History of surgery Hx of arthroscopy of knee Hx of cholecystectomy Hx of gastric bypass Social History Social History Are you a primary child day care center worker to a significant other at home: No Do you presently have visiting nurse or other home services: No Alcohol intake: never Patient Tobacco Use Status: Never used Tobacco Second Hand Smoke Exposure: No Advance Directives Information Provided: No Meds Allergies Allergy/AdvReac Type Severity Reaction Status Date / Time sumatriptan [SUMATRIPTAN] AdvReac Intermediate PALPITATION Verified 04/18/21 12:13 S Active Medications: Current Medications Generic Name Dose Route Start Last Admin Trade Name Freq PRN Reason Stop Dose Admin Albuterol Sulfate 2.5 mg 04/18/21 12:08 Albuterol Sulfate (0.083%) 2.5 Mg/3 Ml Vial.Neb INHALE ONCE PRN Shortness of Breath/Wheezing Lactated Ringer's 1,000 mls @ 100 mls/hr 04/18/21 12:15 Lr IVCONT .Q10H [facility] Home Medications Medication Instructions Recorded Confirmed Last Taken Type cholecalciferol (vitamin D3) 25 mcg PO DAILY 08/12/20 04/14/21 Unknown History [Vitamin D3] docusate sodium [DOK] 1 cap PO DAILY 08/12/20 04/14/21 Unknown History lansoprazole 30 mg PO DAILY 08/12/20 04/14/21 04/18/21 06:30 History venlafaxine 75 mg PO DAILY 08/12/20 04/14/21 04/18/21 06:30 History rsuumvyyxv-qnqeetemuaosg-dkemnajs 1 tab PO DAILY PRN 09/17/20 04/14/21 Unknown History 50 mg-325 mg-40 mg tablet topiramate 50 mg tablet 50 mg PO BEDTIME 01/30/21 04/14/21 Unknown History Exam Exam Date and Time: April 18, 2021 124 Height,Weight and Vital Signs: Height 5 ft 3 in Weight 84.822 kg Last Vital Signs Temp 97.3 F 04/18/21 12:19 Pulse 75 04/18/21 12:19 Resp 16 04/18/21 12:19 BP 128/79 04/18/21 12:19 Pulse Ox 100 04/18/21 12:19 Pertinent Lab Results Pertinent Lab Results: Laboratory Tests 04/18/21 12:12 Urine Test NEGATIVE Airway Mallampati Class: II TM Dist: >3cm Neck ROM: Full Heart: RRR Lungs: CTA
[2021-04-18] MEDS: Lactated Ringers 1,000 ML 100 ML IVCONT (13:02)
[2021-04-18 13:12] LABS: Glucose, Whole Blood 54 mg/dL (60-115)
--- NOTE | 2021-04-18 13:29 | MHC.SHP ---
Pre-Procedural Eval Section A Date of Service: 04/18/21 The patient is an INPATIENT: No Changes since office visit: Yes Patient answered all questions The History & Physical has been completed within 30 days and I have reviewed it.: No Section B Chief Complaint: Spondylosis of Lumbar reigon Details of Present Illness: as above Relevant Family History (Specify if Yes): No Relevant Social History: None Present Medications: see Short Stay Collaborative assessment Medical History: No relevant PMH History of Previous Operations: No relevant previous surgery Allergies: Allergies Allergy/AdvReac Type Severity Reaction Status Date / Time sumatriptan [SUMATRIPTAN] AdvReac Intermediate PALPITATION Verified 04/18/21 12:13 S Review of Systems Sugical H&P ROS: Negative: Constitution, Cardiovascular, Respiratory, Neurological, Psychiatric, Hem-Onc, Allergic/Immunologic, Gastrointestinal, Genitourinary, Musculoskeletal, Integumentary, Endocrine and Eyes/Ears/Nose/Throat Exam Surgical H&P Exam: Normal: HEENT, Normal: Heart, Normal: Lungs, Normal: Extremities, Normal: Abdomen, Normal: Skin and Normal: Neurological Plan Diagnosis/Plan: Unchanged I have reviewed the history and physical and performed a pertinent physical examination on my patient. No changes have occurred unless specified.
[2021-04-18 13:51] LABS: Glucose, Whole Blood 124 mg/dL (60-115)
--- NOTE | 2021-04-18 14:01 | PC.NURSE ---
Patient arrived to [facility] for procedure. History of reactive hypoglycemia. Stated she checks her sugar every morning however today she did not. Did not feel hypoglycemic. Blood sugar taken, 54 at [address] English notified. New order for Dextrose 50% 25 gram IVP now. Administered and tolerated well. Blood sugar rechecked before going into OR. Result [address] English aware.
[2021-04-18 14:30] VITALS: BP 150/87; PULSE 96; RESP 19; TEMP 36.7; O2SAT 100
--- NOTE | 2021-04-18 14:30 | P.BOP_ITS ---
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
--- NOTE | 2021-04-18 14:31 | P.OP_ITS ---
Operative Note Operative Note Date of Service: 04/18/21 Narrative: bilateral therapeutic medial branch block L3-L4 dorsal ramus L5 Informed consent was explained to the patient. All questions were explained and answered. The patient was taken inside the operating room where she was positioned prone on the operating table. [employer] monitors were applied. Patient was deeply sedated. Time-out was performed delineating correct site, side, the nature of the procedure, patient's allergy, preoperative antibiotic if needed. All operating room staff was participating in OR time-out procedure. The lower back was prepped with ChloraPrep and draped with sterile towels. Sterilely draped C-arm was brought over the operating field and sq picture of L4-and L5 vertebra and S1 AREA were delineated on the screen. Point of interest were delineated as connection of superior articular process of L4 and L5 vertebra bilaterally with corresponding transverse processes as well as connection of the sacral alae bilaterally with superior articular process of S1. The projection of the point of interest to the skin were injected with the small amount of local anesthetic lidocaine 2% 1-1.5 cc. After that 22 gauge 3- 1/2 inch spinal needle was driven sequentially to the points of interest in tunnel vision fashion. After needles gently contacted the bone at the point of interests the needle was injected with small amount of the contrast. The in jection of the contrast did not demonstrate any intravascular or intrathecal spread of the contrast. After that injection of the bupivacaine 0.5%-1cc mixed with kenalog was performed at each needle location. The total dose of kenalog was 80 mg. Upon completion of the injections needle was removed and sterile Band-Aids were applied. The patient was awaken and taken outside of the operating room to recovery room where she recovered uneventfully. She went home without immediate complications.
[2021-04-18 14:45] VITALS: BP 164/98; PULSE 93; RESP 18; TEMP 36.7; O2SAT 100
[2021-04-21 09:28] LABS: Glucose, Whole Blood 101 mg/dL (60-115)
== END 2021-04-18 15:41 | disposition home or self-care (01) ==
PROVIDERS: Nurse Practitioner; PCP Internal Medicine; Visit Provider Anesthesiology
PROC: (CPT 64493; principal; 2021-04-18 13:40)
DX: M47.816 Spondylosis without myelopathy or radiculopathy, lumbar region (principal); M79.7 Fibromyalgia; J45.909 Unspecified asthma, uncomplicated; E16.1 Other hypoglycemia; Z79.899 Other long term (current) drug therapy; Z88.8 Allergy status to other drugs, medicaments and biological substances
CPT/HCPCS: 64493; 64494; 81025; 82947; J2250; J3010; J3300; Q9967

== ENCOUNTER → 2021-05-28 10:34 | Outpatient (BNVA) | payer OTHER, SELFPAY | PROVIDERS: PCP Internal Medicine; Visit Provider Nurse Practitioner Family ==

== ENCOUNTER → 2021-06-10 10:12 | Outpatient (BNVA) | payer OTHER, SELFPAY | PROVIDERS: PCP Internal Medicine; Visit Provider Dietitian, Registered ==

== ENCOUNTER → 2021-06-12 09:11 | Outpatient (BNVA) | payer OTHER, SELFPAY | PROVIDERS: PCP Internal Medicine; Visit Provider Dietitian, Registered | DX: E66.9 Obesity, unspecified (principal); E16.2 Hypoglycemia, unspecified | CPT/HCPCS: 97803 ==

== ENCOUNTER → 2021-06-25 08:03 | Outpatient (BNVA) | payer OTHER, SELFPAY | PROVIDERS: PCP Internal Medicine; Visit Provider Internal Medicine | DX: E16.2 Hypoglycemia, unspecified (principal) | CPT/HCPCS: 99212 ==

== ENCOUNTER → 2021-06-30 09:44 | Outpatient (BNVA) | payer OTHER, SELFPAY | PROVIDERS: PCP Internal Medicine; Visit Provider Anesthesiology ==

== ENCOUNTER 2021-07-08 07:45 | Outpatient (REF) | payer OTHER, SELFPAY ==
[2021-07-09 19:42] LABS: Adrenocorticotropic Hormone 7 pg/mL (6-50)
[2021-07-10 06:11] LABS: Cortisol 30 Minute 25.3 mcg/dL; Cortisol Baseline 8.1 mcg/dL
== END 2021-07-08 07:46 | disposition home or self-care (01) ==
LOC: HO.MDS 07:45
PROVIDERS: PCP Internal Medicine; Visit Provider Internal Medicine
DX: E27.40 Unspecified adrenocortical insufficiency (principal)
CPT/HCPCS: 36415; 82024; 82533; 96374; J0834

== ENCOUNTER 2021-08-21 09:39 | Outpatient (REF) | payer OTHER, SELFPAY ==
--- NOTE | ~2021-08-21 | XR_ITS ---
EXAMINATION: XR KNEE, BILATERAL XR KNEE, RIGHT CLINICAL INFORMATION: Pain COMPARISON: 03/28/2019 TECHNIQUE: AP standing view of both knees. Lateral and sunrise views of the right knee. FINDINGS: Right knee: No acute fracture or subluxation. Compartmental joint spaces are maintained. Tiny marginal osteophytes of the patellofemoral compartment again noted. No joint effusion. The soft tissues appear unremarkable. Left knee: No fracture or subluxation on this single view. Appropriate alignment. XR/XR knee RT 2V IMPRESSION: Mild degenerative change of the right knee patellofemoral compartment is similar to prior.
--- NOTE | ~2021-08-21 | XR_ITS ---
EXAMINATION: XR KNEE, BILATERAL XR KNEE, RIGHT CLINICAL INFORMATION: Pain COMPARISON: 03/28/2019 TECHNIQUE: AP standing view of both knees. Lateral and sunrise views of the right knee. FINDINGS: Right knee: No acute fracture or subluxation. Compartmental joint spaces are maintained. Tiny marginal osteophytes of the patellofemoral compartment again noted. No joint effusion. The soft tissues appear unremarkable. Left knee: No fracture or subluxation on this single view. Appropriate alignment. XR/XR knee standing BI IMPRESSION: Mild degenerative change of the right knee patellofemoral compartment is similar to prior.
== END 2021-08-21 09:40 | disposition home or self-care (01) ==
LOC: HO.HOSX 09:39
PROVIDERS: Visit Provider Physician Assistant
DX: M17.11 Unilateral primary osteoarthritis, right knee (principal)
CPT/HCPCS: 20610; 73560; 73565; 99212; J1040

== ENCOUNTER 2021-12-24 07:15 | Outpatient (REF) | payer OTHER, SELFPAY ==
[2021-12-24 08:40] LABS: Anion Gap 12 (12-20); Blood Urea Nitrogen 13 mg/dL (9-16); Calcium 9.1 mg/dL (8.4-10.2); Carbon Dioxide 27 mmol/L (22-29); Chloride 107 mmol/L (96-108); Estimated Glomerular Filt Rate > 60; Glucose Fasting 101 mg/dL (60-99); Potassium 4.8 mmol/L (3.3-5.1); Sodium 141 mmol/L (135-145)
[2021-12-24 09:03] LABS: Free T4 (Free Thyroxine) 1.04 ng/dL (0.71-1.85); Thyroid Stimulating Hormone 1.04 uIU/mL (0.32-4.0)
[2021-12-25 08:57] LABS: DHEA Sulfate 23 mcg/dL (15-205)
== END 2021-12-24 07:16 | disposition home or self-care (01) ==
LOC: HO.LAB 07:15
PROVIDERS: PCP Internal Medicine; Visit Provider Internal Medicine
DX: E16.2 Hypoglycemia, unspecified (principal)
CPT/HCPCS: 36415; 80048; 82627; 84439; 84443

== ENCOUNTER → 2021-12-26 08:13 | Outpatient (BNVA) | payer OTHER, SELFPAY | PROVIDERS: PCP Internal Medicine; Visit Provider Internal Medicine Endocrinology, Diabetes & Metabolism | DX: E16.2 Hypoglycemia, unspecified (principal) | CPT/HCPCS: 99212 ==

== ENCOUNTER 2021-12-31 09:22 | Emergency (ER) | payer OTHER, SELFPAY ==
--- NOTE | ~2021-12-31 | CT_ITS ---
EXAMINATION: CT HEAD WITHOUT CONTRAST CLINICAL INFORMATION: Left-sided headache with left eye pain COMPARISON: February 25, 2021 TECHNIQUE: Contiguous axial imaging was performed from the skull base to vertex without intravenous administration of contrast. This CT examination was performed using dose optimization techniques as appropriate, variously including the following: *Automated exposure control *Adjustment of mA and/or kV according to patient size (this includes techniques or standardized protocols for targeted exams where dose is matched to indication/reason for exam; i.e. extremities or head) *Use of iterative reconstruction technique DLP: 662 mGy-cm FINDINGS: There is no evidence of acute intracranial hemorrhage or territorial infarction. No abnormal mass effect or midline shift is seen. Hope to white matter differentiation is well preserved. No extra-axial fluid collections are identified. The ventricles are normal in size. There is no abnormal attenuation within the brain parenchyma. The osseous structures and soft tissues are normal. The mastoid air cells and visualized portions of the paranasal sinuses are well aerated. CT/CT head/brain wo con IMPRESSION: No acute intracranial pathology.
[2021-12-31 09:23] VITALS: BP 145/96; PULSE 90; RESP 19; TEMP 36.6; O2SAT 100; BMI 33.8
--- NOTE | 2021-12-31 09:48 | ED.HA ---
HPI - Headache General Chief Complaint: Headache Stated Complaint: headache Time Seen by Provider: 12/31/21 09:35 Source: patient Mode of arrival: ambulatory Limitations: no limitations History of Present Illness HPI Narrative: 41 y/o female with history of migraines, fibromyalgia,depression, obesity, chronic back pain who presents to the ER with 6 days of left sided head pain, eye pain and ear pain. She reports there is an underlying ache that is constant but she has episodes of intermittent sharp pains that feel like cold metal shooting behind her eye and in her head. This is not typical of her regular migraines. She took her Fioricet with no improvement. She reports she did not sleep well last night because of the pain. She feels like there is liquid in her left ear and in her head. She denies any hearing loss or vision changes. No fever or chills. No numbness, weakness or tingling. She called her doctor who instructed her to come to the ER for futher evaluation. MD elicited complaint: headache Pertinent past history: migraines Onset (ago): day(s) (6) Onset description: gradually Location: left and retro-orbital Severity: severe Quality & Timing: aching and sharp Exacerbating factors: none Relieving factors: nothing Associated symptoms: eye pain Treatments prior to arrival: none Related Data Home Medications Medication Instructions Recorded Confirmed cholecalciferol (vitamin D3) 25 25 mcg PO DAILY 08/12/20 12/26/21 mcg (1,000 unit) tablet (Vitamin D3) docusate sodium 100 mg capsule 1 cap PO DAILY 08/12/20 12/26/21 (DOK) venlafaxine 75 mg capsule,extended 75 mg PO DAILY 08/12/20 12/26/21 release 24 hr muwjkoegxm-hntzezcuihqku-jbdqvald 1 tab PO DAILY PRN 09/17/20 12/26/21 50 mg-325 mg-40 mg tablet topiramate 50 mg tablet 50 mg PO BEDTIME 01/30/21 12/26/21 Previous Rx's Medication Instructions Recorded hydroxyzine HCl 25 mg tablet 25 mg PO BID PRN 30 Days #60 tab 09/09/20 sucralfate 100 mg/mL oral 10 ml PO BID 30 Days #600 ml 03/13/21 suspension (Carafate) blood-glucose meter (FreeStyle #1 ea 06/09/21 Lite Meter) lancets 28 gauge (FreeStyle #50 ea 03/26/21 Lancets) acarbose 50 mg tablet 50 mg PO TID 30 Days #90 tab 04/10/21 duloxetine 60 mg capsule,delayed 60 mg PO DAILY #30 cap 06/10/21 release albuterol sulfate 2.5 mg (3 mL) INHALATION Q4-6H PRN 06/24/21 #75 ml nebulizers #1 ea 06/24/21 prednisone 20 mg tablet 40 mg PO DAILY 5 Days #10 tab 06/24/21 metoclopramide HCl 10 mg tablet 10 mg PO BID PRN 30 Days #60 tab 08/17/21 ondansetron HCl 4 mg tablet 4 mg PO Q8H PRN 30 Days #90 tab 08/17/21 nabumetone 750 mg tablet 750 mg PO BID #60 tab 10/15/21 ipratropium 20 mcg-albuterol 100 1 puff INHALATION Q6H 30 Days #4 g 11/11/21 mcg/actuation mist for inhalation (Combivent Respimat) pregabalin 75 mg capsule 75 mg PO BEDTIME 30 Days #30 cap 11/21/21 lansoprazole 30 mg delayed 30 mg PO DAILY 90 Days #90 tab 12/10/21 release,disintegrating tablet blood sugar diagnostic (FreeStyle #50 ea 12/11/21 Lite Strips) tramadol 50 mg tablet 100 mg PO Q6H PRN 30 Days #240 tab 12/18/21 cyclobenzaprine 10 mg tablet 10 mg PO DAILY #90 tab 12/30/21 Allergies Allergy/AdvReac Type Severity Reaction Status Date / Time sumatriptan [SUMATRIPTAN] AdvReac Intermediate PALPITATION Verified 12/26/21 07:58 S Review of Systems Review of Systems: Constitutional: No Fever, No Chills ENT/Mouth: No sore throat, No Rhinorrhea, No Swallowing Difficulty, +Otalgia Eyes: + Eye Pain, No Swelling, No Redness, No vision changes Cardiovascular: No Chest Pain, No SOB Respiratory: No Cough, No Sputum Gastrointestinal: No Nausea, No Vomiting, No abdominal Pain Genitourinary: No Dysuria, No Urinary Frequency, No Hematuria Musculoskeletal: No joint pain, No Myalgias Skin: No Skin Lesions, No rash Neuro: No Weakness, No Numbness, No Dizziness, + Headache Psych: + Anxiety/Panic, No Depression Heme/Lymph: No Bruising, No Lymphadenopathy [facility] Past Medical History Medical History Anxiety Arthropathy of lumbosacral facet joint Asthma DISH (diffuse idiopathic skeletal hyperostosis) DISH (disseminated idiopathic skeletal hyperostosis) Fibromyalgia GERD (gastroesophageal reflux disease) Hiatal hernia Hip pain History of lupus Hypoglycemia Migraines Reactive hypoglycemia Spondylosis of lumbar region without myelopathy or radiculopathy Syncope Urticaria Surgical History History of esophagogastroduodenoscopy (EGD) History of surgery Hx of arthroscopy of knee Hx of cholecystectomy Hx of gastric bypass Family History Family History Father CVD (cardiovascular disease) Mother Hypertension Rheumatoid arthritis Lupus Maternal Grandmother CAD (coronary artery disease) Diabetes Maternal Grandfather CAD (coronary artery disease) Diabetes Family/Other FH: mental illness Mental health disorder Social History Social History Housing: House Are you a primary healthcare facility administrator to a significant other at home: No Do you presently have visiting nurse or other home services: No Alcohol intake: never Patient Tobacco Use Status: Never used Tobacco Second Hand Smoke Exposure: No Advance Directives: No Advance Directives Information Provided: No Patient : No service: No Current occupational status: employed Current occupation: rt handed Physical Exam Vital Signs: Vital Signs: Last Vital Signs Temp 97.8 F 12/31/21 09:23 Pulse 90 12/31/21 09:23 Resp 19 12/31/21 09:23 BP 145/96 H 12/31/21 09:23 Pulse Ox 100 12/31/21 09:23 BMI result Body Mass Index 33.8 Appearance: Alert. Oriented X3. No acute distress. Eyes: Pupils equal, round and reactive to light. EOMI, no nystagmus. No temporal tenderness. ENT: Left TM with small effusion, TM normal without erythema or bulding. Normal EAC. Right TM normal. Pharynx normal. Neck: Normal inspection. Neck supple. No LAD. CVS: Normal heart rate and rhythm. Pulses normal. Respiratory: No respiratory distress. Breath sounds normal. Abdomen: Soft and nontender. +BS x4 Skin: Skin warm and dry. Normal skin color. Normal skin turgor. No rashes. Extremities: No lower extremity edema. Neuro: Oriented X 3. No motor deficit. No sensory deficit. Nonfocal. Course Course Course Narrative: 41 y/o female presenting with left eye pain, ear pain and head pain x6 days. Not typical of her migraines. She is under a great deal of stress with a new move with a delay, a new job and family stressors. Her neuro exam is nonfocal and she has no temporal artery tenderness. No vision changes. Will get CT head for further evaluation. Reevaluation(s) Reevaluation #1: CT head is normal. Her symptoms are most likely due to an ocular migraine, exacerbated by stress. She has fioricet at home. Will give dose of Toradol now and have her her follow up with her PCP this week. Stable for d/c home with supportive care and outpatient follow up. Discharge Plan Discharge Clinical Impression: Ocular migraine Patient Disposition: Home, Self-Care Instructions: Ocular Migraine (ED) Additional Instructions: Your CT scan today was normal. Recommend continuing your Fioricet Follow up with your doctor If you develop new or worsening symptoms call 911 or come back to the ER for further evaluation. Prescriptions: No Action hydroxyzine HCl 25 mg tablet 25 mg PO BID PRN (Reason: itching) 30 Days Qty: 60 0RF acarbose 50 mg tablet 50 mg PO TID 30 Days Qty: 90 3RF duloxetine 60 mg capsule,delayed release(DR/EC) 60 mg PO DAILY Qty: 30 6RF ondansetron HCl 4 mg tablet 4 mg PO Q8H PRN (Reason: nausea and vomiting) 30 Days Qty: 90 1RF metoclopramide HCl 10 mg tablet 10 mg PO BID PRN (Reason: nausea and vomiting) 30 Days Qty: 60 1RF nabumetone 750 mg tablet 750 mg PO BID Qty: 60 2RF Combivent Respimat 20-100 mcg/actuation mist 1 puff inhalation Q6H 30 Days Qty: 4 2RF pregabalin 75 mg capsule 75 mg PO BEDTIME 30 Days Qty: 30 0RF lansoprazole 30 mg tablet,disintegrat, delay rel 30 mg PO DAILY 90 Days Qty: 90 1RF (DME) FreeStyle Lite Strips Strip See Rx Instructions .MEDSUPPLY Qty: 50 6RF Rx Instructions: 2 times a day tramadol 50 mg tablet 100 mg PO Q6H PRN (Reason: Pain) 30 Days Qty: 240 0RF cyclobenzaprine 10 mg tablet 10 mg PO DAILY Qty: 90 3RF venlafaxine 75 mg capsule,extended release 24hr 75 mg PO DAILY 0RF docusate sodium [DOK] 100 mg capsule 1 cap PO DAILY 0RF cholecalciferol (vitamin D3) [Vitamin D3] 25 mcg (1,000 unit) Tablet 25 mcg PO DAILY 0RF xswkrqkrrx-clkniwrbbpehc-rrrk 50-325-40 mg tablet 1 tab PO DAILY PRN (Reason: Migraine Headache) 0RF prednisone 20 mg tablet 40 mg PO DAILY 5 Days Qty: 10 0RF albuterol sulfate 2.5 mg /3 mL (0.083 %) solution for nebulization 2.5 mg inhalation Q4-6H PRN (Reason: shortness of breath or wheezing) Qty: 75 0RF (DME) nebulizers Misc See Rx Instructions .Route Qty: 1 0RF Rx Instructions: As directed topiramate 50 mg tablet 50 mg PO BEDTIME 0RF sucralfate [Carafate] 100 mg/mL suspension 10 ml PO BID 30 Days Qty: 600 6RF (DME) blood-glucose meter [FreeStyle Lite Meter] Kit See Rx Instructions miscellaneous .MEDSUPPLY Qty: 1 0RF Rx Instructions: Twice a day (DME) lancets [FreeStyle Lancets] 28 gauge misc See Rx Instructions .MEDSUPPLY Qty: 50 5RF Rx Instructions: To times a day Stand Alone Forms: Work/School Release
[2021-12-31] MEDS: Ketorolac Tromethamine 30 MG/ML VIAL IM (10:53)
== END 2021-12-31 11:03 | disposition home or self-care (01) ==
PROVIDERS: Emergency Provider Emergency Medicine; PCP Internal Medicine
DX: G43.909 Migraine, unspecified, not intractable, without status migrainosus (principal); M79.7 Fibromyalgia; F33.1 Major depressive disorder, recurrent, moderate; M54.50 Low back pain, unspecified; Z79.899 Other long term (current) drug therapy
CPT/HCPCS: 70450; 96372; 99283; 99284; J1885

== ENCOUNTER → 2022-01-27 07:35 | Outpatient (BNVA) | payer BC, OTHER, SELFPAY | PROVIDERS: PCP Internal Medicine; Visit Provider Nurse Practitioner Family | DX: M79.7 Fibromyalgia (principal); M48.10 Ankylosing hyperostosis [Forestier], site unspecified; F32.9 Major depressive disorder, single episode, unspecified; Z79.899 Other long term (current) drug therapy | CPT/HCPCS: 99212 ==

== ENCOUNTER 2022-03-25 07:34 | Outpatient (REF) | payer BC, OTHER, SELFPAY ==
[2022-03-25 08:53] LABS: Alanine Aminotransferase 13 U/L (0-31); Alkaline Phosphatase 75 U/L (39-117); Anion Gap 13 (12-20); Aspartate Amino Transferase 15 U/L (5-31); Bilirubin Total 0.4 mg/dL (0.0-1.0); Blood Urea Nitrogen 13 mg/dL (9-16); Calcium 9.1 mg/dL (8.4-10.2); Carbon Dioxide 24 mmol/L (22-29); Chloride 107 mmol/L (96-108); Estimated Glomerular Filt Rate > 60; Glucose Fasting 100 mg/dL (60-99); Potassium 4.8 mmol/L (3.3-5.1); Sodium 139 mmol/L (135-145); Total Protein 7.5 g/dL (6.5-8.0)
[2022-03-25 09:19] LABS: Insulin 8 uU/mL (2-29)
[2022-04-06 17:32] LABS: Chlorpropamide None Detected; Glimepiride None Detected; Glipizide None Detected; Glyburide None Detected; Nateglinide None Detected; Pioglitazone None Detected; Repaglinide None Detected; Rosiglitazone None Detected; Tolazamide None Detected; Tolbutamide None Detected
== END 2022-03-25 07:35 | disposition home or self-care (01) ==
LOC: HO.LAB 07:34
PROVIDERS: PCP Internal Medicine; Visit Provider Internal Medicine
DX: E16.2 Hypoglycemia, unspecified (principal)
CPT/HCPCS: 36415; 80053; 80337; 82943; 83525

== ENCOUNTER 2022-03-30 16:00 | Outpatient (RCR) | payer BC, OTHER, SELFPAY ==
--- NOTE | 2022-03-12 13:54 | MHC.PT.EP ---
[facility] [place] Office [place] Office [place] Office [address] Natalia Mendez [address] [phone] F: [phone] F: [phone] F: [phone] F: [phone] Physical Therapy Plan of Care Date of Evaluation: Date of Surgery: N/A Diagnosis: spondylosis no myelopathy or radiculopathy lumbar (RC) Assessment: pt presents w/ DISH (diffuse idiopathic skeletal hyperostosis) and fibromyalgia. pt presents to physical therapy with pain, decreased range of motion, decreased strength, impaired functional mobility, impaired postural awareness, and gait deviations. pt is a fair candidate for skilled PT due to age, potential remediation of impairments, typical disease/condition progression and prognosis, comorbidities, and motivation. pt would benefit from tailored strengthening and stretching exercise program, functional training, gait training, postural re-training, neuromuscular re-education, modalities as needed for pain, equipment safety demonstration. Frequency and Duration: The patient will be seen 2x/wk for 4 wks Short Term Goals: pt will be I w/ HEP to promote self-management of condition. pt will demo proper sitting posture w/ lumbar roll to promote neutral spine w/ seated ADLs. 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 Treatment Plan: Modalities to reduce pain, spasms and effusion. Manual therapy to restore motion and function. Therapeutic exercise to improve strength and flexibility. Neuromuscular re-education for posture and balance. Therapeutic activities to return to functional activities of daily living. Electronically signed by: Kelsi Collins PT, DPT Please sign and return to therapist. Thank you for your referral.
--- NOTE | 2022-04-07 14:49 | MHC.PT.DC ---
[facility] [place] Office [place] Office [place] Office [address] Natalia Mendez 140 [facility] [phone] F: [phone] F: [phone] F: [phone] F: [phone] Physical Therapy Discharge Report Diagnosis: spondylosis no myelopathy or radiculopathy lumbar (RC) Date of Surgery: N/A Date of Evaluation: 03/11/22 Date of Discharge: 04/07/22 Treatments to Date: 2 Cancellations to Date: 0 No Shows to Date: 2 Discharge Status: Visit Non-compliance Discharge Summary: The patient has no showed two appointments. Per [facility] Core Therapy policy she is being discharged for non-compliance. While attending she was reporting no interest in physical therapy treatment and was unsure why she was referred to PT. Electronically signed by: Kelsi Collins PT, DPT Please sign and return to therapist. Thank you for your referral.
== END 2022-04-07 14:49 | disposition home or self-care (01) ==
LOC: HO.PT 16:00
PROVIDERS: PCP Internal Medicine; Visit Provider Nurse Practitioner Family
DX: M47.816 Spondylosis without myelopathy or radiculopathy, lumbar region (principal)
CPT/HCPCS: 97110; 97162

== ENCOUNTER → 2022-04-15 07:33 | Outpatient (BNVA) | payer BC, OTHER, SELFPAY | PROVIDERS: PCP Internal Medicine; Visit Provider Internal Medicine Endocrinology, Diabetes & Metabolism | DX: E16.2 Hypoglycemia, unspecified (principal) | CPT/HCPCS: 82947; 99212 ==

== ENCOUNTER 2022-05-22 07:08 | Outpatient (REF) | payer BC, OTHER, SELFPAY ==
--- NOTE | ~2022-05-22 | MM_ITS ---
EXAMINATION: MM SCREENING DIGITAL BREAST TOMOSYNTHESIS, BILATERAL CLINICAL INFORMATION: Screening. Asymptomatic. Age 42. No prior breast imaging. No known family history breast cancer. The lifetime risk of breast cancer based on the Tyrer-Cuzick Model is 13%. COMPARISON: None (current study represents initial baseline exam). TECHNIQUE: Digital breast tomosynthesis is performed in both the craniocaudal and mediolateral oblique views along with computer-aided detection (CAD). Synthesized 2D images are generated from the tomosynthesis. Additional right CC x2 and additional left CC views are provided. FINDINGS: There are scattered areas of fibroglandular density (ACR BI-RADS breast composition Category b). There is no architectural abnormality or abnormal calcifications. The bilateral axilla and skin contours are unremarkable. Left breast shows no significant mass. Right breast has benign-appearing circumscribed nodule 9:00 position measuring approximately 0.9 x 0.6 cm, possibly cyst or intramammary node. As this represents initial baseline exam, patient will be recalled to further characterize with ultrasound. MM/MM tomosynthesis screening BI IMPRESSION: Right: -Benign-appearing nodule outer right breast under 1 cm. Left: -No mammographic evidence of malignancy. ASSESSMENT: BI-RADS 0: Incomplete - Need Additional Imaging Evaluation RECOMMENDATION: 1. Targeted ultrasound right breast. 2. Radiology department staff will contact the patient for additional imaging. This patient's information was entered into a reminder system with a target due date for their next mammogram.
[2022-05-22 07:39] LABS: Alanine Aminotransferase 10 U/L (0-31); Albumin Level 3.9 g/dL (3.5-5.0); Alkaline Phosphatase 74 U/L (39-117); Anion Gap 14 (12-20); Aspartate Amino Transferase 13 U/L (5-31); Bilirubin Total 0.3 mg/dL (0.0-1.0); Blood Urea Nitrogen 19 mg/dL (9-16); Calcium 8.9 mg/dL (8.4-10.2); Carbon Dioxide 24 mmol/L (22-29); Chloride 109 mmol/L (96-108); Cholesterol 177 mg/dL; Estimated Glomerular Filt Rate > 60; Glucose Fasting 87 mg/dL (60-99); HDL Cholesterol 73 mg/dL; LDL Cholesterol Calculated 94 mg/dl; Potassium 4.7 mmol/L (3.3-5.1); Sodium 142 mmol/L (135-145); Total Protein 7.3 g/dL (6.5-8.0); Triglycerides 51 mg/dL
[2022-05-22 08:03] LABS: Vitamin D 25-OH Total 20.2 ng/mL (>30)
== END 2022-05-22 07:09 | disposition home or self-care (01) ==
LOC: HO.MAMMO 07:08
PROVIDERS: PCP Internal Medicine; Visit Provider Internal Medicine
DX: Z00.00 Encounter for general adult medical examination without abnormal findings (principal); Z12.31 Encounter for screening mammogram for malignant neoplasm of breast; E66.9 Obesity, unspecified; E78.5 Hyperlipidemia, unspecified; E55.9 Vitamin D deficiency, unspecified
CPT/HCPCS: 36415; 77063; 77067; 80053; 80061; 82306; 84443

== ENCOUNTER 2022-05-27 14:21 | Outpatient (REF) | payer BC, OTHER, SELFPAY ==
--- NOTE | ~2022-05-27 | US_ITS ---
EXAMINATION: US DIAGNOSTIC ULTRASOUND BREAST, RIGHT CLINICAL INFORMATION: Recall from baseline for circumscribed nodule 9:00 right breast under 1 cm. TC score 13%. COMPARISON: None. TECHNIQUE: Ultrasound of the breast is performed with real-time mendez scale imaging and color Doppler. FINDINGS: Targeted ultrasound confirms a oval circumscribed nodule 9:00 position 6 cm from nipple measuring approximately 0.9 x 0.4 x 0.7 cm. Long axis is parallel with the skin. Margins are smooth. There is no suspicious finding or architectural abnormality. Results are discussed with the patient at time of visit. The right breast nodule has benign characteristics and is just under 1 cm, suspect benign fibroadenoma. Finding will be reassessed again in 6 months with targeted ultrasound to confirm stability. US/US breast RT limited IMPRESSION: Circumscribed 0.9 cm oval nodule 9:00 position, likely benign fibroadenoma. ASSESSMENT: BI-RADS 3: Probably Benign RECOMMENDATION: Targeted right breast ultrasound in 6 months. This patient's information was entered into a reminder system with a target due date for their next mammogram.
== END 2022-05-27 14:22 | disposition home or self-care (01) ==
LOC: HO.MAMMO 14:21
PROVIDERS: PCP Internal Medicine; Visit Provider Internal Medicine
DX: N60.01 Solitary cyst of right breast (principal)
CPT/HCPCS: 76642

== ENCOUNTER → 2022-06-02 11:25 | Outpatient (BNVA) | payer BC, OTHER, SELFPAY | PROVIDERS: PCP Internal Medicine; Visit Provider Dietitian, Registered | DX: E16.2 Hypoglycemia, unspecified (principal); E66.9 Obesity, unspecified; Z71.3 Dietary counseling and surveillance | CPT/HCPCS: 97803 ==

== ENCOUNTER → 2022-06-16 14:41 | Outpatient (BNVA) | payer OTHER, SELFPAY | PROVIDERS: PCP Internal Medicine; Visit Provider Hospitalist | DX: J45.40 Moderate persistent asthma, uncomplicated (principal); Z86.16 Personal history of COVID-19 | CPT/HCPCS: 99202 ==

== ENCOUNTER 2022-07-09 14:49 | Outpatient (REF) | payer OTHER, SELFPAY ==
--- NOTE | 2022-07-09 17:10 | PFT_ITS ---
INDICATION: Dyspnea. SPIROMETRY: FEV1 to FVC 92% with an FEV1 of 2.61 L, which is 91% predicted and FVC of 2.8 L, which is 80% predicted. No significant response to bronchodilators noted. Maximum voluntary ventilation 86% predicted. LUNG VOLUMES: Total lung capacity 77% predicted. DIFFUSION CAPACITY: DLCO 104% predicted. COMPARISONS: PFTs in 2015. INTERPRETATION: No obstructive ventilatory defect. No significant response to bronchodilators noted. Normal maximum voluntary ventilation. However, the patient does have a restrictive ventilatory defect consistent with mild restrictive lung disease. Diffusion capacity is within normal limits. When compared to 2015, there was a significant increase in the FVC, a significant increase in the FEV1, a trend improvement of the total lung capacity, and a trend increase in the diffusion capacity. Clinical correlation warranted. MD SYLVIA Estes/[employer]ripp / [id number]
== END 2022-07-09 14:50 | disposition home or self-care (01) ==
LOC: HO.RESP 14:49
PROVIDERS: PCP Internal Medicine; Visit Provider Hospitalist
DX: J45.909 Unspecified asthma, uncomplicated (principal); R06.00 Dyspnea, unspecified; U07.1 COVID-19
CPT/HCPCS: 94060; 94727; 94729

== ENCOUNTER → 2022-08-10 15:24 | Outpatient (BNVA) | payer OTHER, SELFPAY | PROVIDERS: PCP Internal Medicine; Visit Provider Hospitalist | DX: U07.1 COVID-19 (principal); J45.40 Moderate persistent asthma, uncomplicated; J98.4 Other disorders of lung; G47.33 Obstructive sleep apnea (adult) (pediatric); Z79.899 Other long term (current) drug therapy | CPT/HCPCS: 99212 ==

== ENCOUNTER → 2022-08-18 15:12 | Outpatient (REF) | payer OTHER, SELFPAY | LOC: HO.SL 15:12 | PROVIDERS: PCP Internal Medicine; Visit Provider Hospitalist | DX: G47.33 Obstructive sleep apnea (adult) (pediatric) (principal) | CPT/HCPCS: 95806 ==

== ENCOUNTER → 2022-09-15 15:12 | Outpatient (BNVA) | payer OTHER, SELFPAY | PROVIDERS: PCP Internal Medicine; Referring Provider Internal Medicine; Visit Provider Physician Assistant Surgical | DX: E66.9 Obesity, unspecified (principal); Z68.35 Body mass index [BMI] 35.0-35.9, adult; Z98.84 Bariatric surgery status | CPT/HCPCS: 99212 ==

== ENCOUNTER 2022-11-27 14:58 | Outpatient (REF) | payer OTHER, SELFPAY ==
--- NOTE | ~2022-11-27 | US_ITS ---
EXAMINATION: US DIAGNOSTIC ULTRASOUND BREAST, RIGHT CLINICAL INFORMATION: Six-month follow up right breast nodule 9 o'clock position, 6 cm from the nipple. COMPARISON: 05/27/2022. TECHNIQUE: Ultrasound of the breast is performed with real-time mendez scale imaging and color Doppler. FINDINGS: There is a stable, well-circumscribed, hypoechoic lesion which is wider than it is tall without internal vascularity and without distal sound shadowing. This lies at approximately the 9 o'clock position, 6 cm from the nipple. It measures 7 x 4 x 8 mm in size. This has the appearance of a fibroadenoma. Recommend 6 month follow up ultrasound evaluation. At time of study patient asked about having a lesion removed by a surgeon and is going to contact her physician for this conversation. Would still recommend 6 month follow up ultrasound if patient does not choose to have the surgery done. Results are discussed with the patient at time of visit. US/US breast RT limited IMPRESSION: Stable appearance of right breast lesion as described with appearance of fibroadenoma. ASSESSMENT: BI-RADS 3: Probably benign. RECOMMENDATION: Diagnostic ultrasound in 6 months. This patient's information was entered into a reminder system with a target due date for their next mammogram.
== END 2022-11-27 14:59 | disposition home or self-care (01) ==
LOC: HO.MAMMO 14:58
PROVIDERS: PCP Internal Medicine; Visit Provider Internal Medicine
DX: N63.15 Unspecified lump in the right breast, overlapping quadrants (principal)
CPT/HCPCS: 76642

== ENCOUNTER 2022-11-30 15:02 | Outpatient (REF) | payer OTHER, SELFPAY ==
--- NOTE | ~2022-11-30 | XR_ITS ---
EXAMINATION: XR CHEST CLINICAL INFORMATION: J45.909 - Unspecified asthma, uncomplicated COMPARISON: Chest radiographs 08/26/2016, 05/16/2016 TECHNIQUE: 3 views of the chest were obtained. FINDINGS: The lungs are clear. There is no hyperinflation or coarsening of the bronchiolar markings. No airspace consolidation or groundglass opacity or effusion. Heart size normal. Vascularity normal. The hilar and mediastinal contours are unremarkable. No acute bony abnormality. XR/XR chest 2V IMPRESSION: Lungs clear. No hyperinflation.
[2022-11-30 16:06] LABS: MANUAL DIFF FLAG NO
[2022-11-30 17:28] LABS: Basophils Percent Auto 0.6 % (0-2); Eosinophils Percent Auto 0.5 % (0-4); Hematocrit 33.6 % (37.0-47.0); Hemoglobin 9.7 g/dl (12.0-16.0); Imm Gran Abs Auto 0.01 X10*3/uL (0.00-0.03); Imm Gran Pct Auto 0.2 % (0.0-0.4); Lymphocytes Absolute Auto 2.2 X10*3/uL (1.2-4.9); Lymphocytes Percent Auto 34.5 % (20-40); Mean Corpuscular HGB Conc 28.9 g/dl (31.0-35.0); Mean Corpuscular Hemoglobin 21.2 pg (27.0-33.0); Mean Corpuscular Volume 73.5 fL (80.0-98.0); Mean Platelet Volume 10.7 fL (9.4-12.3); Monocytes Absolute Auto 0.6 X10*3/uL (0.1-1.2); Monocytes Percent Auto 8.9 % (2-11); Neutrophils Absolute Auto 3.5 x10*3/uL (2.0-8.3); Neutrophils Percent Auto 55.3 % (45-73); Platelet Count 335 X10*3/uL (160-400); Red Blood Count 4.57 X10*6/uL (4.20-5.50); Red Cell Distribution Width 16.9 % (11.0-16.0); White Blood Count 6.3 X10*3/uL (4.8-10.8)
[2022-11-30 17:43] LABS: D Dimer High Sensitivity < 150 NG/ML
[2022-11-30 17:48] LABS: Anion Gap 15 (12-20); Blood Urea Nitrogen 18 mg/dL (9-16); Carbon Dioxide 25 mmol/L (22-29); Chloride 105 mmol/L (96-108); Estimated Glomerular Filt Rate > 60; Glucose Random 87 mg/dL (60-115); Potassium 4.9 mmol/L (3.3-5.1); Sodium 140 mmol/L (135-145)
[2022-11-30 17:59] LABS: Troponin-I High Sensitivity < 3.5 ng/L (<3.5-17.0)
[2022-11-30 18:08] LABS: TSH reflex Free T4 1.08 uIU/mL (0.32-4.0)
[2022-11-30 18:13] LABS: Erythrocyte Sedimentation Rate 38 MM/HR (0-20)
== END 2022-11-30 15:03 | disposition home or self-care (01) ==
LOC: HO.LAB 15:02
PROVIDERS: PCP Internal Medicine; Visit Provider Hospitalist
DX: J45.40 Moderate persistent asthma, uncomplicated (principal); R00.0 Tachycardia, unspecified; U07.1 COVID-19; R06.09 Other forms of dyspnea; J98.4 Other disorders of lung; G47.33 Obstructive sleep apnea (adult) (pediatric); Z79.899 Other long term (current) drug therapy
CPT/HCPCS: 36415; 71046; 80048; 84443; 84484; 85025; 85379; 85652; 94618; 99212

== ENCOUNTER → 2022-12-10 09:02 | Outpatient (BNV) | payer OTHER, SELFPAY | PROVIDERS: Visit Provider Internal Medicine | DX: D64.9 Anemia, unspecified (principal) | CPT/HCPCS: 99204; 99213 ==

== ENCOUNTER 2022-12-24 11:41 | Outpatient (REF) | payer OTHER, SELFPAY | END 2022-12-24 11:42 | disposition home or self-care (01) | LOC: HO.MDS 11:41 | PROVIDERS: PCP Internal Medicine; Visit Provider Internal Medicine | DX: D50.9 Iron deficiency anemia, unspecified (principal) | CPT/HCPCS: 96365; J1756 ==

== ENCOUNTER 2023-01-06 09:08 | Outpatient (REF) | payer OTHER, SELFPAY | END 2023-01-06 09:09 | disposition home or self-care (01) | LOC: HO.MDS 09:08 | PROVIDERS: Visit Provider Internal Medicine | DX: D50.9 Iron deficiency anemia, unspecified (principal) | CPT/HCPCS: 96365; J1756 ==

== ENCOUNTER → 2023-01-08 10:27 | Outpatient (BNVA) | payer OTHER, SELFPAY | PROVIDERS: PCP Internal Medicine; Visit Provider Surgery | DX: D24.1 Benign neoplasm of right breast (principal) | CPT/HCPCS: 99202 ==

== ENCOUNTER 2023-01-20 08:08 | Outpatient (REF) | payer OTHER, SELFPAY | END 2023-01-20 08:09 | disposition home or self-care (01) | LOC: HO.MDS 08:08 | PROVIDERS: Visit Provider Internal Medicine | DX: D50.9 Iron deficiency anemia, unspecified (principal) | CPT/HCPCS: 96365; J1756 ==

== ENCOUNTER 2023-01-25 06:56 | Day surgery (SDC) | payer OTHER, SELFPAY ==
[2023-01-20 15:19] VITALS: BMI 36.7
--- NOTE | ~2023-01-25 | US_ITS ---
EXAMINATION: US ULTRASOUND-GUIDED NEEDLE LOCALIZATION BREAST, RIGHT MM DIGITAL MAMMOGRAPHY BREAST POST LOCALIZATION, RIGHT NEEDLE LOCALIZATION SPECIMEN RADIOGRAPH FROM THE RIGHT BREAST CLINICAL INFORMATION: Probable benign fibroadenoma mid 9:00 right breast under 1 cm initially noted at baseline screening. COMPARISON: Ultrasound right breast 11/27/2022, 05/27/2022, mammography 05/22/2022 (baseline). TECHNIQUE NEEDLE LOC: Proper informed consent is obtained from the patient after discussion of the procedure, potential risks and complications, and alternatives including declining the procedure today. Patient was given an opportunity for questions. The patient appeared to understand. The patient consented to the procedure and signed the consent form. GUIDANCE: Real time ultrasound guidance APPROACH: Lateral Medial TARGET: Small oval circumscribed nodule mid lateral right breast ANESTHESIA: 5 cc carbonated lidocaine 1% LOCALIZATION MARKER: [place] MammaLok 5 cm length. The skin is prepped and local anesthesia administered. The needle is positioned and position assessed with real time ultrasound. The wire is hooked into position, just beyond the nodule. POSTPROCEDURE UNILATERAL DIGITAL MAMMOGRAM: Mammography is performed using digital mammography in CC views. There are scattered areas of fibroglandular density (ACR BI-RADS breast composition Category b). Localization wire is in position. No gross hematoma. The suspected fibroadenoma resides just proximal to the end of the localization needle. [place] needle protector placed. The patient tolerated the procedure well and had no immediate complication. Procedure results called to medical education coordinator (Marilee) for Dr. Kauffman on 01/25/2023. TECHNIQUE SPECIMEN RADIOGRAPH: Single radiograph of the excised breast tissue is performed. FINDINGS SPECIMEN RADIOGRAPH: The specimen shows the distal needle and hookwire are delivered intact within the specimen. There are some densities adjacent to the needle which could represent the targeted lesion. There is no clip marker as no prior biopsy has been performed. Correlation with surgical impression is recommended. Specimen radiograph discussed with Dr. Anson Kauffman in the operating room at the time of imaging. US/US breast needle loc RT IMPRESSION: 1. Status post ultrasound-guided right breast needle localization with wire hooked into position. 2. Postoperative specimen radiograph obtained.
[2023-01-25 07:31] LABS: UPreg QC Valid YES; Urine Pregnancy NEGATIVE (NEGATIVE)
[2023-01-25 07:43] VITALS: BP 140/94; PULSE 77; RESP 16; TEMP 36.2; O2SAT 99
[2023-01-25] MEDS: Lactated Ringers 1,000 ML 50 ML IVCONT (07:44)
[2023-01-25 07:54] LABS: Glucose, Whole Blood 98 mg/dL (60-115)
--- NOTE | 2023-01-25 08:39 | MHC.SHP ---
Pre-Procedural Eval Section A Date of Service: 01/25/23 The patient is an INPATIENT: No Changes since office visit: Yes Patient answered all questions; No Cold of Flu in the past 2 weeks, No New Medical Problems and No Changes in Medication The History & Physical has been completed within 30 days and I have reviewed it.: Yes Section B Chief Complaint: Fibroadenoma Right Breast Allergies: Allergies Allergy/AdvReac Type Severity Reaction Status Date / Time sumatriptan [SUMATRIPTAN] AdvReac Intermediate PALPITATION Verified 12/23/22 15:29 S Plan Diagnosis/Plan: Unchanged I have reviewed the history and physical and performed a pertinent physical examination on my patient. No changes have occurred unless specified. Time Spent With Patient Time: Total time managing care of this patient today ____ minutes.
[2023-01-25] MEDS: Lidocaine HCl 1 % 20 ML VIAL 9 ML SUBCUT (09:13)
[2023-01-25] MEDS: Sodium Bicarbonate 8.4% 50 MEQ/50 ML VIAL SUBCUT (09:14)
--- NOTE | 2023-01-25 09:34 | P.CONAN_ITS ---
FORM[facility]LY [facility] Active Problems Active Problems: All Active Problems (Updated 01/19/23 @ 15:37 by Maritza Regalado RN) DISH (diffuse idiopathic skeletal hyperostosis) (Acute) Depression (Acute) Obesity (Acute) SOB (shortness of breath) (Acute) Osteoarthritis of right knee (Acute) COVID-19 (Acute) Physical exam (Acute) Obese (Acute) Polyarthralgia (Acute) Elevated blood pressure reading without diagnosis of hypertension (Acute) Anemia (Chronic) Fibroadenoma of right breast (Acute) Mild major depression (Acute) Tachycardia (Acute) Dyspnea (Acute) Hx of gastric bypass (Acute) Chronic restrictive lung disease (Acute) JAIME (obstructive sleep apnea) (Acute) Asthma (Acute) Reactive hypoglycemia (Acute) Hypoglycemia (Acute) Syncope (Acute) Arthropathy of lumbosacral facet joint (Acute) Spondylosis of lumbar region without myelopathy or radiculopathy (Acute) Hip pain (Acute) Migraines (Acute) Fibromyalgia (Acute) Urticaria (Acute) Past Medical History Medical History Anxiety Arthropathy of lumbosacral facet joint Asthma Chronic restrictive lung disease DISH (disseminated idiopathic skeletal hyperostosis) Dyspnea Fibromyalgia GERD (gastroesophageal reflux disease) Hiatal hernia Hip pain History of COVID-19 History of lupus Hypoglycemia Migraines JAIME (obstructive sleep apnea) Reactive hypoglycemia Spondylosis of lumbar region without myelopathy or radiculopathy Syncope Tachycardia Urticaria Family History Family History Father CVD (cardiovascular disease), Onset Age: 65 Mother Hypertension Rheumatoid arthritis Lupus Maternal Grandmother CAD (coronary artery disease) Diabetes Maternal Grandfather CAD (coronary artery disease) Diabetes Family/Other FH: mental illness Mental health disorder Paternal Aunt No problems noted. Brother Diabetes Hypertension Surgical History Surgical History History of esophagogastroduodenoscopy (EGD) History of surgery Hx of arthroscopy of knee Hx of cholecystectomy Hx of gastric bypass History of Problems with Anesthesia: No Social History Social History Household Members: Family Housing: House Are you a primary summer child caregiver to a significant other at home: No Do you presently have visiting nurse or other home services: No Alcohol intake: current Alcohol intake frequency: does not drink Alcohol type: hard liquor Patient Tobacco Use Status: Never used Tobacco e-Cigarette/Vaping Use: Never Used Second Hand Smoke Exposure: No Use of substances other than those prescribed or required for medical reasons: No Are you DNR?: No Advance Directives: No Advance Directives Information Provided: Yes Advance Directives on File: No service: No Current occupational status: employed Current occupational exposures/hazards: No Cognitive needs: No Hearing needs: No Vision needs: Yes Meds Allergies Allergy/AdvReac Type Severity Reaction Status Date / Time sumatriptan [SUMATRIPTAN] AdvReac Intermediate PALPITATION Verified 12/23/22 15:29 S Active Medications: Current Medications Lactated Ringer's (Lr) 1,000 mls @ 50 mls/hr IVCONT .Q20H JUNI Last Admin: 01/25/23 07:44 Dose: 50 mls/hr Home Medications Medication Instructions Recorded Confirmed Last Taken Type docusate sodium 100 mg capsule 1 cap PO DAILY 08/12/20 01/08/23 Unknown History (DOK) venlafaxine 75 mg capsule,extended 75 mg PO DAILY 08/12/20 01/08/23 04/18/21 06:30 History release 24 hr smhpcigckk-vbyaobaqferfr-leiizalt 1 tab PO DAILY PRN Migraine 09/17/20 01/08/23 Unknown History 50 mg-325 mg-40 mg tablet Headache topiramate 50 mg tablet 50 mg PO BEDTIME 01/30/21 01/08/23 Unknown History acarbose 50 mg tablet 50 mg PO TID PRN (Drug) Ingestion 06/16/22 01/08/23 Unknown History metoclopramide HCl 10 mg tablet 10 mg PO BID PRN nausea and 06/16/22 01/08/23 Unknown History vomiting Exam Exam Date and Time: January 25, 2023 0934 Height,Weight and Vital Signs: Height 5 ft 3 in Weight 94 kg Last Vital Signs Temp 97.1 F 01/25/23 07:43 Pulse 77 01/25/23 07:43 Resp 16 01/25/23 07:43 BP 140/94 H 01/25/23 07:43 Pulse Ox 99 01/25/23 07:43 O2 Del Method Room Air 04/10/23 07:43 Pertinent Lab Results Pertinent Lab Results: Laboratory Tests 01/25/23 01/25/23 07:15 07:29 POC Glucose 98 Urine Test NEGATIVE Airway Mallampati Class: II TM Dist: >3cm Neck ROM: Full Loose/Missing/Broken Teeth: No Heart: RRR Lungs: CTA Assessment and Plan Assessment Anesthesia Assessment: Anesthesia Plan Discussed and Chart Reviewed Final Anesthetic Review History of Problems with Anesthesia: No NPO: Yes ASA Class: II Final Preanesthetic Review: Meds/Allgs Chart Reviewed, Consent Obtained/Reviewed and Anes Risks/Benef Reviewed Patient Risk: Low Procedure Risk: Low Anesthetic Plan Anesthetic Plan: GA Disposition: Standard PACU
--- NOTE | 2023-01-25 09:54 | W.PM.OPN ---
Operative Note Operative Note Date of Service: 01/25/23 Narrative: Preoperative diagnosis:Right breast mass Postoperative diagnosis:same Procedure:Right breast lumpectomy with needle localization Surgeon: Anson Kauffman MD Computing Systems Mechanic: Mariana Light PA-C Anesthesia:General LMA Indications for procedure: 42-year-old female patient presenting with a palpable lump in the right breast at the upper outer quadrant exam by ultrasound felt to be suggestive of fibroadenoma. Patient requesting removal of this palpable mass. On examination patient has an area of density in the upper outer quadrant but could not clearly identify a single nodule. Operative findings: palpable density within the bulk of the localizing wire felt to be consistent with a fibroadenoma. Pathology pending. Specimen: right breast lumpectomy Estimated blood loss: 2 mL Complications: none Procedure details: patient was brought to the OR placed in a supine position. After administering general anesthesia the patient's right breast was prepped with ChloraPrep draped in a sterile fashion. A surgical time-out was called the consent confirmed. Patient received preoperative antibiotics and Venodyne boots were in place. Local anesthesia consisting of 0.5% Sensorcaine with epinephrine was then infiltrated around the localizing wire. A incision was then made with a scalpel carried out through subcutaneous tissue. Core of tissue surrounding the localizing wire was then obtained. This was sent to pathology with marking sutures placed on the specimen: Long suture lateral, short suture superior, loop suture posterior. The gross pathology examination confirmed a fibroadenoma within the specimen. Wounds were irrigated with saline solution. Wounds were checked for hemostasis with electrocautery. Deep breast tissue and dermis reapproximated using interrupted 3-0 Polysorb sutures. Skin was closed using a running subcuticular 4-0 Polysorb suture. Steri-Strips, 2 x 2 gauze and Tegaderm were then applied. The patient tolerated the procedure well. Sponge, instrument, and needle counts reported as correct. The patient was transferred to PACU in stable condition.
[2023-01-25 10:18] VITALS: BP 163/95; PULSE 73; RESP 18; TEMP 36.8; O2SAT 98
[2023-01-25 10:23] VITALS: BP 165/92; PULSE 68; RESP 16; O2SAT 100
[2023-01-25 10:28] VITALS: BP 172/101; PULSE 67; RESP 16; O2SAT 100
[2023-01-25 10:33] VITALS: BP 140/80; PULSE 76; RESP 16; O2SAT 100
[2023-01-25 10:48] VITALS: BP 152/86; PULSE 73; RESP 17; TEMP 36.8; O2SAT 100
== END 2023-01-25 11:41 | disposition home or self-care (01) ==
PROVIDERS: Anesthesiology; PCP Internal Medicine; Visit Provider Surgery
PROC: (CPT 19301; principal; 2023-01-25 09:10)
DX: D24.1 Benign neoplasm of right breast (principal); J45.909 Unspecified asthma, uncomplicated
CPT/HCPCS: 19301; 19281; 19285; 77065; 81025; 82947; 88307; 88329; A4648; J0690; J1100; J2250; J2405; J3010

== ENCOUNTER 2023-01-28 07:45 | Outpatient (REF) | payer OTHER, SELFPAY | END 2023-01-28 07:46 | disposition home or self-care (01) | LOC: HO.MDS 07:45 | PROVIDERS: Visit Provider Internal Medicine | DX: D50.9 Iron deficiency anemia, unspecified (principal) | CPT/HCPCS: 96365; J1756 ==

== ENCOUNTER 2023-02-02 10:50 | Outpatient (REF) | payer OTHER, SELFPAY | END 2023-02-02 10:51 | disposition home or self-care (01) | LOC: HO.MDS 10:50 | PROVIDERS: Visit Provider Internal Medicine | DX: D50.9 Iron deficiency anemia, unspecified (principal) | CPT/HCPCS: 96365; 99212; J1756 ==

== ENCOUNTER → 2023-03-01 13:29 | Outpatient (BNVA) | payer OTHER, SELFPAY | PROVIDERS: PCP Internal Medicine; Visit Provider Dietitian, Registered | DX: J45.40 Moderate persistent asthma, uncomplicated (principal); R00.0 Tachycardia, unspecified; R06.09 Other forms of dyspnea; J98.4 Other disorders of lung; G47.33 Obstructive sleep apnea (adult) (pediatric); E66.9 Obesity, unspecified; E16.2 Hypoglycemia, unspecified; Z68.37 Body mass index [BMI] 37.0-37.9, adult | CPT/HCPCS: 97803; 99212 ==

== ENCOUNTER 2023-03-29 12:09 | Outpatient (REF) | payer OTHER, SELFPAY | END 2023-03-29 12:10 | disposition home or self-care (01) | LOC: HO.HOSX 12:09 | PROVIDERS: Visit Provider Orthopaedic Surgery | DX: Z13.89 Encounter for screening for other disorder (principal) ==

== ENCOUNTER 2023-05-28 15:28 | Outpatient (REF) | payer BC, OTHER, SELFPAY | END 2023-05-28 15:29 | disposition home or self-care (01) | LOC: HO.MAMMO 15:28 | PROVIDERS: PCP Internal Medicine; Visit Provider Internal Medicine | DX: Z13.89 Encounter for screening for other disorder (principal) ==

== ENCOUNTER 2023-09-30 14:47 | Outpatient (AMB) | payer OTHER, SELFPAY ==
[2023-09-30 14:53] VITALS: BP 148/96; PULSE 80; O2SAT 98; BMI 36.8
--- NOTE | 2023-09-30 14:53 | A.OFFPC_ITS ---
Vital Signs 09/30/23 14:53 Height 5 ft 3 in Weight 208 lb BMI 36.8 BP 148/96 H Blood Pressure Location Lt brachial Position Sitting Pulse 80 Pulse Source Pulse Oximeter Pulse Oximetry (%) 98 Oxygen Delivery Method Room Air Intake Visit Reasons: Physical exam Intake Note: Patient is here today for a physical. Lining Cutter Required: No Allergies sumatriptan [SUMATRIPTAN] Adverse Reaction (Intermediate, Verified 09/30/23 15:08) PALPITATIONS Medication List - Last Reconciled 09/30/23 by IVONE De Santiago acarbose 50 mg PO TID PRN albuterol sulfate 2.5 mg (3 mL) inhalation Q4-6H PRN alcohol swabs (Alcohol Prep Pads) topically 2 times a day; benzonatate 200 mg PO BID PRN 30 days blood sugar diagnostic (FreeStyle Lite Strips) USE DIRECTED 2 TIMES A DAY blood-glucose meter (FreeStyle Lite Meter kit) Twice a day budesonide-formoterol 160-4.5 mcg/actuation (Symbicort) 2 puffs inhalation BID 30 days jqpslpwext-wbancrupewfbt-hcyq 50-325-40 mg 1 tab PO DAILY PRN cyclobenzaprine 10 mg PO DAILY docusate sodium (DOK) 1 cap PO DAILY duloxetine 60 mg PO DAILY ferrous sulfate 325 mg PO BID 90 days fluticasone propionate 50 mcg/actuation 2 sprays intranasal DAILY ipratropium-albuterol 20-100 mcg/actuation (Combivent Respimat) 1 puff inhalation Q6H 30 days lancets (FreeStyle Lancets) To times a day lansoprazole 30 mg PO DAILY 90 days metoclopramide HCl 10 mg PO BID PRN nabumetone 750 mg PO BID nebulizers As directed ondansetron HCl 4 mg PO Q8H PRN 30 days pregabalin 75 mg PO BEDTIME 30 days sucralfate (Carafate) 10 mL PO BID 30 days topiramate 50 mg PO BEDTIME tramadol 100 mg (2 x 50 mg) PO Q6H PRN 30 days venlafaxine ER 75 mg PO DAILY Ventolin HFA 90 mcg/actuation (albuterol sulfate) 2 puffs inhalation Q6H PRN 30 days NS zolpidem 5 mg PO BEDTIME PRN 30 days Tobacco use date assessed: 09/30/23 Dental Screening Dental Screen Date: 09/30/23 Did you have a dental visit in the last 12 months?: Yes Did you have a dental problem in the last 6 months where you did not have access to dental care?: No Was dental information given to patient?: Patient has dentist HPI Physical exam HPI Details Patient is a 43-year-old female who presents today for physical exam. Patient of Dr. Rebolledo. Medical history significant for migraines-followed by Neurology Dr. Alberto - has an upcoming appointment 10/2023-requesting refill on Fioricet-reports neurology would not refill until seen, JAIME, chronic restrictive lung disease, history of gastric bypass, depression, asthma, anemia-followed by Dr. Banda, obesity among others. Today we discussed patient's need for mammogram. Patient will call her gynecology for a Pap smear. Patient declined tetanus vaccine. Reports ongoing bilateral heel pain, reports on feet for work. No shortness of breath or chest pain. Patient was encouraged to complete blood work that was ordered by her PCP. [facility] Medical History (Updated 10/05/23 @ 11:43 by IVONE De Santiago) COVID-19 History of COVID-19 Tachycardia Dyspnea Chronic restrictive lung disease JAIME (obstructive sleep apnea) Reactive hypoglycemia Hypoglycemia Syncope 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 Hip pain Migraines Fibromyalgia Urticaria DISH (disseminated idiopathic skeletal hyperostosis) Anxiety Hiatal hernia GERD (gastroesophageal reflux disease) History of lupus Asthma Surgical History Status post right breast lumpectomy (01/25/23) History of surgery Hx of cholecystectomy Hx of arthroscopy of knee Hx of gastric bypass History of esophagogastroduodenoscopy (EGD) Family History Father CVD (cardiovascular disease), Onset Age: 65 Mother Hypertension Rheumatoid arthritis Lupus Maternal Grandmother CAD (coronary artery disease) Diabetes Maternal Grandfather CAD (coronary artery disease) Diabetes Family/Other FH: mental illness Mental health disorder Paternal Aunt No problems noted. Brother Diabetes Hypertension Social History Household Members: Family Housing: House Are you a primary health care analyst to a significant other at home: No Do you presently have visiting nurse or other home services: No Alcohol intake: current Alcohol intake frequency: does not drink Alcohol type: hard liquor Patient Tobacco Use Status: Never used Tobacco e-Cigarette/Vaping Use: Never Used Second Hand Smoke Exposure: No service: No Current occupational status: employed Current occupational exposures/hazards: No Cognitive needs: No Hearing needs: No Vision needs: Yes Questionnaire PHQ-9 Over the last 2 weeks, how often have you been bothered by any of the following problems? 1. Little interest or pleasure in doing things: several days 2. Feeling down, depressed, or hopeless: more than half the days 3. Trouble falling or staying asleep, or sleeping too much: nearly every day 4. Feeling tired or having little energy: nearly every day 5. Poor appetite or overeating: several days 6. Feeling bad about yourself - or that you are a failure or have let yourself or your family down: several days 7. Trouble concentrating on things, such as reading the newspaper or watching television: not at all 8. Moving or speaking so slowly that other people could have noticed. Or the opposite - being so fidgety or restless that you have been moving around a lot more than usual: not at all 9. Thoughts that you would be better off or of hurting yourself in some way: not at all Total score: 11 Depression Screening Interpretation: Positive Depression Screening Follow-up: Existing condition and In treatment Depression Screening Done: Yes 99416 - PHQ-9 Billing: Yes Source: Developed by Drs. Emmanuel Chatterjee, Krysten Matamoros, Cameron Hanley and colleagues, with an educational kaitlin from [employer]. Thrive Questionnaire Date Thrive assessed: 03/31/23 AUDIT C Alcohol Use Questionnaire (AUDIT-C) 1. How often do you have a drink containing alcohol?: Monthly or less 2. How many drinks containing alcohol do you have on a typical day when you are drinking?: 1 or 2 3. How often do you have six or more drinks on one occasion?: Never Total Score: 1 Score Reviewed/Action Taken: No JOSEPHINE-7 AMB Questionnaire JOSEPHINE-7 Date JOSEPHINE - 7 assessed: 09/30/23 Feeling nervous, anxious, or on edge: 1 = Several days Not being able to stop or control worryin = Several days Worrying too much about different things: 1 = Several days Trouble relaxin = Several days Being so restless that it is hard to sit still: 1 = Several days Becoming easily annoyed or irritable: 0 = Not at all Feeling afraid as if something awful might happen: 0 = Not at all Total JOSEPHINE-7 score (0-4 normal; 5-9 mild; 10-14 moderate; 15-21 severe): 5 Source: Developed by Drs. Emmanuel Chatterjee, Krysten Matamoros, Cameron Hanley and colleagues, with an educational kaitlin from [employer]. JOSEPHINE-7 Assessment Billing JOSEPHINE-7 Assessment Tool: JOSEPHINE-7 Assessment 08659 Review of Systems Const Denies body aches, Denies chills, Denies fever(s) and Reports headache(s) Eyes Denies change in vision ENT Denies dizziness, Denies otalgia, Reports headache(s), Denies nasal discharge, Denies sinus pain and Denies sore throat Card Denies chest pain, Denies edema, Denies lightheadedness and Denies dyspnea Resp Denies cough, Denies dyspnea and Denies wheezing GI Denies constipation, Denies diarrhea, Denies nausea and Denies vomiting Denies dysuria Musc Reports as per HPI and Denies myalgias Skin/Breast Denies rash Neuro Denies dizziness and Reports headache(s) Aller/Immun Denies wheezing Physical exam (Primary Care) Vital Signs: Last Vital Signs Pulse 80 09/30/23 14:53 BP 148/96 H 09/30/23 14:53 Pulse Ox 98 09/30/23 14:53 Oxygen Delivery Method Room Air 09/30/23 14:53 BMI result Body Mass Index 36.8 Tobacco/Smoking Status: Tobacco use Status Tobacco use date assessed 09/30/23 09/30/23 14:54 Patient Tobacco Use Status Never used Tobacco 09/30/23 14:54 e-Cigarette/Vaping Use Never Used 09/30/23 14:54 PHQ-9: PHQ-9 Score PHQ-9: Total score 11 09/30/23 15:13 Depression Screening Interpretation: Positive Depression Screening Follow-up: Existing condition and In treatment Thrive Assessment: Date of Thrive Assessment Date Thrive assessed 03/31/23 09/30/23 14:54 Const General: cooperative and no acute distress Orientation/consciousness: patient oriented x3 HENMT Head: Yes normocephalic and Yes atraumatic Ears: TM's normal bilaterally Face and sinus: Yes sinuses nontender Mouth: oropharynx normal and moist mucous membranes Throat: Yes posterior oropharynx normal Eyes General: appearance normal, both eyes and all related structures Pupils: Equal, round and reactive pupils present EOM: EOMs intact bilaterally Neck Neck: Yes normal visual inspection, Yes full ROM and Yes no lymphadenopathy Thyroid: Thyroid normal Resp Effort & Inspection: normal respiratory effort and able to speak in complete sentences Auscultation: clear to auscultation bilaterally, no crackles, no rales, no rhonchi and no wheezes Cardio Rate: regular rate Rhythm: regular rhythm Heart sounds: S1 normal heart sound present, S2 normal heart sound present and no murmurs GI Palpation (GI): Soft to palpation, not firm, nontender, no guarding, not rigid and no hepatosplenomegaly Auscultation: normal bowel sounds General: No CVA tenderness Back/Spine/Pelvis Back: No CVA tenderness Skin General skin exam: no rashes or lesions noted Neuro General: patient oriented x3 Cranial nerves: Yes Equal, round and reactive pupils present Gait exam (Neuro): Normal gait present Extrem General: Yes full ROM and No edema Assessment and Plan Assessment & Plan (1) Heel pain, bilateral: Code(s): M79.671 - Pain in right foot; M79.672 - Pain in left foot Plan: Podiatry referral for an evaluation and treatment (2) Depression: Code(s): F32.9 - Major depressive disorder, single episode, unspecified Plan: Continue venlafaxine and duloxetine (3) Obesity: Code(s): E66.9 - Obesity, unspecified Qualifiers: Obesity type: due to excess calories Obesity classification: adult class 2 (BMI 35 - 39.9) Body mass index: BMI 36.0-36.9 Plan: Healthy food choices and exercise as tolerated (4) Physical exam: Code(s): Z00.00 - Encounter for general adult medical examination without abnormal findings (5) Asthma: Code(s): J45.909 - Unspecified asthma, uncomplicated Qualifiers: Asthma severity: moderate Asthma persistence: persistent Asthma complication type: uncomplicated Qualified Code(s): J45.40 - Moderate persistent asthma, uncomplicated Plan: Continue current inhalers (6) Migraines: Code(s): G43.909 - Migraine, unspecified, not intractable, without status migrainosus Plan: Provided patient with Fioricet 3 tablets only Need to follow-up with neurology Plan Follow-up with PCP in 3 months Orders: Orders MM tomosynthesis screening BI 09/30/23 Z12.31 - Encounter for screening mammogram for malignant neoplasm of breast Referrals Podiatry Referral M79.671 - Pain in right foot, M79.672 - Pain in left foot Medications: New yzqehislfv-rkjkffttjgvow-ghzw 50-325-40 mg 1 tab PO DAILY PRN 3 tabs 0RF Migraine Headache G43.909 - Migraine, unspecified, not intractable, without status migrainosus Coding Level of Care Code Est Pt Prev Care 40-64y([id number]) Diagnoses Heel pain, bilateral M79.671; M79.672 Depression F32.9 Obesity E66.9 Obesity type: due to excess calories Obesity classification: adult class 2 (BMI 35 - 39.9) Body mass index: BMI 36.0-36.9 Physical exam Z00.00 Moderate persistent asthma without complication J45.40 Asthma severity: moderate Asthma persistence: persistent Asthma complication type: uncomplicated Migraines G43.909 Additional Codes JOSEPHINE-7 Assessment Billing - JOSEPHINE-7 Assessment Tool: JOSEPHINE-7 Assessment [id number] ([id number])
== END 2023-09-30 15:31 | disposition home or self-care (01) ==
PROVIDERS: PCP Internal Medicine; Visit Provider Nurse Practitioner Family
DX: Z00.00 Encounter for general adult medical examination without abnormal findings (principal); E66.9 Obesity, unspecified; M79.671 Pain in right foot; M79.672 Pain in left foot; F32.9 Major depressive disorder, single episode, unspecified; J45.40 Moderate persistent asthma, uncomplicated; G43.909 Migraine, unspecified, not intractable, without status migrainosus
CPT/HCPCS: 96127; 99396

== ENCOUNTER 2023-11-15 08:38 | Outpatient (REF) | payer OTHER, SELFPAY ==
--- NOTE | ~2023-11-15 | MM_ITS ---
EXAMINATION: MM SCREENING DIGITAL BREAST TOMOSYNTHESIS, BILATERAL CLINICAL INFORMATION: Screening. Asymptomatic. The patient is status post excision of a fibroadenoma of the upper outer quadrant of the right breast. COMPARISON: Mammography: This study is compared with prior exams dating back to 2021. TECHNIQUE: Digital breast tomosynthesis is performed in both the craniocaudal and mediolateral oblique views along with computer-aided detection (CAD). Synthesized 2D images are generated from the tomosynthesis. FINDINGS: There are scattered areas of fibroglandular density (ACR BI-RADS breast composition Category b). There are no significant masses, abnormal calcifications, or other abnormalities. There is minor architectural change in the upper outer quadrant of the right breast from prior excision for benign disease. MM/MM tomosynthesis screening BI IMPRESSION: No mammographic evidence of malignancy. ASSESSMENT: BI-RADS BI-RADS 2 - Benign Findings RECOMMENDATION: Routine annual mammography screening. 1 year F/U This examination should not preclude the clinical evaluation of a suspicious palpable abnormality. This patient's information was entered into a reminder system with a target due date for their next mammogram.
[2023-11-15 09:54] LABS: MANUAL DIFF FLAG NO
[2023-11-15 10:44] LABS: Basophils Percent Auto 0.6 % (0-2); Eosinophils Percent Auto 1.1 % (0-4); Hematocrit 43.5 % (37.0-47.0); Hemoglobin 13.9 g/dl (12.0-16.0); Imm Gran Abs Auto 0.01 X10*3/uL (0.00-0.03); Imm Gran Pct Auto 0.3 % (0.0-0.4); Lymphocytes Absolute Auto 1.7 X10*3/uL (1.2-4.9); Mean Corpuscular Hemoglobin 31.1 pg (27.0-33.0); Mean Corpuscular Volume 97.3 fL (80.0-98.0); Monocytes Absolute Auto 0.4 X10*3/uL (0.1-1.2); Monocytes Percent Auto 10.2 % (2-11); Neutrophils Absolute Auto 1.4 x10*3/uL (2.0-8.3); Neutrophils Percent Auto 39.8 % (45-73); Platelet Count 219 X10*3/uL (160-400); Red Blood Count 4.47 X10*6/uL (4.20-5.50); Red Cell Distribution Width 12.5 % (11.0-16.0); White Blood Count 3.5 X10*3/uL (4.8-10.8)
[2023-11-15 11:58] LABS: Folate 11.8 ng/mL (> or = 4.0); Vitamin B12 469 pg/mL (200-900)
[2023-11-15 12:37] LABS: Alanine Aminotransferase 18 U/L (0-31); Albumin Level 4.1 g/dL (3.5-5.0); Alkaline Phosphatase 69 U/L (39-117); Anion Gap 12 (12-20); Aspartate Amino Transferase 16 U/L (5-31); Bilirubin Total 0.3 mg/dL (0.0-1.0); Blood Urea Nitrogen 16 mg/dL (9-16); Calcium 9.4 mg/dL (8.4-10.2); Carbon Dioxide 28 mmol/L (22-29); Chloride 105 mmol/L (96-108); Cholesterol 201 mg/dL (<200); Estimated Glomerular Filt Rate > 60; Glucose Fasting 91 mg/dL (60-99); HDL Cholesterol 78 mg/dL (>40); LDL Cholesterol Calculated 110 mg/dL (<100); Sodium 141 mmol/L (135-145); Total Protein 7.8 g/dL (6.5-8.0); Triglycerides 66 mg/dL (<150)
[2023-11-15 13:26] LABS: Thyroid Stimulating Hormone 1.93 uIU/mL (0.32-4.0); Vitamin D 25-OH Total 108.2 ng/mL (>30)
== END 2023-11-15 08:39 | disposition home or self-care (01) ==
LOC: HO.MAMMO 08:38
PROVIDERS: PCP Internal Medicine; Visit Provider Internal Medicine
DX: Z12.31 Encounter for screening mammogram for malignant neoplasm of breast (principal); D64.9 Anemia, unspecified; E55.9 Vitamin D deficiency, unspecified; E78.5 Hyperlipidemia, unspecified; M48.10 Ankylosing hyperostosis [Forestier], site unspecified; R41.0 Disorientation, unspecified; E53.8 Deficiency of other specified B group vitamins
CPT/HCPCS: 36415; 77063; 77067; 80053; 80061; 82306; 82607; 82746; 84443; 85025

== ENCOUNTER → 2023-11-15 08:45 | Outpatient (BNV) | payer OTHER, SELFPAY | PROVIDERS: PCP Internal Medicine; Visit Provider Radiology Diagnostic Radiology | DX: Z12.31 Encounter for screening mammogram for malignant neoplasm of breast (principal) | CPT/HCPCS: 77063; 77067 ==

== ENCOUNTER 2023-11-24 09:22 | Outpatient (AMB) | payer OTHER, SELFPAY ==
--- NOTE | 2023-11-24 09:51 | MHC.OFFVIS ---
Intake Vital Signs 11/24/23 09:53 Height 5 ft 3 in Weight 198 lb BMI 35.1 Pulse 86 Pulse Source Pulse Oximeter Pulse Oximetry (%) 98 Oxygen Delivery Method Room Air Intake Visit Reasons: asthma Alarm Operator Required: No Allergies sumatriptan [SUMATRIPTAN] Adverse Reaction (Intermediate, Verified 11/24/23 09:54) PALPITATIONS HPI HPI Comments History of Present Illness Details The patient is a 43 year woman with a known history of asthma who apparently was in her usual state health until she contracted COVID 19. She was evaluated at the [facility] during that time in early April 2022. She was discharged in release. The patient was already on steroids and also antibiotics per she continued to using nebulizer and also has a rescue inhaler. However, she continued having coughing and chest tightness and wheezing. Moderate severity. No significant improvement until the last several days which she has actually noticed some decrease in her cough and chest tightness. She is reassured she is starting to get a little better. I do not have the ability to review the x-ray that she had at [facility] but apparently the patient states that she was told was normal. Her symptoms are usually worse at nighttime. She has a hard time sleeping because of the coughing. Her cough is now nonproductive where initially was productive in nature. She did not take any additional antimicrobial therapy. At this point will try to maximize her respiratory therapy and will request additional studies. If her symptoms do not improve then will go ahead and get allergy testing and additional blood work. 08/10/2022 the patient is here for a pulmonary follow-up visit. She feels about the same. She is having episodes of shortness of breath with activity. Moderate severity. The Symbicort inhaler was not very helpful. She did undergo pulmonary function studies. We did personally review them together. Appears that she has a mild restrictive ventilatory defect. Although no obstruction and a normal diffusing capacity. She was supposed to have a chest x-ray but she has not had as of yet. Therefore will have her undergo a chest x-ray. If her symptoms persist and no clear etiology on the x-ray would consider rate CT scan of the chest to assess for any restrictive lung disease conditions such as interstitial lung disease. In addition to that the patient is having episodes of waking up short of breath and coughing. She wakes up from a sound sleep. The patient does have snoring history. He does wake up tired with an elevated Withams score of 12/24. Will have her undergo home sleep study at this time. 11/30/2022 the patient is here for pulmonary follow-up visit. She is having worsening symptoms. Complaining of shortness of breath and tachycardia. She is also having a worsening productive cough. She has been using the Symbicort with some benefit. However, more recently she has been using her nebulizer also her rescue inhaler on a daily basis because of her worsening cough. She is also noticing increasing heart rates and blood pressures. She has been getting headaches. We did go for brief walking oximetry and heart rate was up to 120. This will with minimal activity with dyspnea score of 5/10. Her pulse ox was normal. That being said she does not have a history of blood clots or leg swelling. She is not taking any hormonal replacement therapy at this time. will go ahead and have the patient undergo blood work including CBC, D-dimer among others. Patient should also have a chest x-ray done. The patient will start a course of antibiotics. She does not need any prednisone she does not have any wheezing. She is going to continue with respiratory therapy for now. 03/01/2023 the patient is here for pulmonary follow-up visit. The patient overall is feeling better. She has been using her inhalers with good effect. The patient went back to work now she is motivated. She still has issues with significant fatigue. She is working at [employer] and is hard for her to Anjel 12 hours. She did request for letter. I explained to her that I can give her a simple letter stating the fact that she does see an tap grinder and does use inhalers otherwise if she needs additional paperwork she would after take it elsewhere. The patient has been complaining of productive cough lately. The cough is yellowish in color. She may be developing some degree of bronchitis. No evidence of any significant chest tightness or wheezing. Her cardiac status is a little more stable. 11/24/2023 the patient is here for a sick visit. Apparently she had a very tough couple months. She was sick back at the end of September and then all of October she was sick with cough congestion chest tightness and wheezing. She did call but she did not come in for an appointment. The patient continue to use her nebulizer several times a day. She continues to use home remedies. Ultimately she started feeling better. Now her respiratory status is back to her baseline. The patient has also been complaining of severe headaches. She went to the hospital with migraines. She was treated at [facility] for that. Currently she is still having ongoing migraine headaches. We did review her last home sleep study that she had back in 21 without any significant sleep apnea although she was hypoxic. The patient does have daytime drowsiness with an Withams score elevated at 11 over 24. Based on the fact that she has severe headaches ongoing daytime drowsiness and also increased cardiovascular risk factors I do believe we should repeat her home sleep study at this time. 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 Hip pain Migraines Fibromyalgia Urticaria DISH (disseminated idiopathic skeletal hyperostosis) Anxiety Hiatal hernia GERD (gastroesophageal reflux disease) History of lupus Asthma Surgical History Status post right breast lumpectomy (01/25/23) History of surgery Hx of cholecystectomy Hx of arthroscopy of knee Hx of gastric bypass History of esophagogastroduodenoscopy (EGD) Family History Father CVD (cardiovascular disease), Onset Age: 65 Mother Hypertension Rheumatoid arthritis Lupus Maternal Grandmother CAD (coronary artery disease) Diabetes Maternal Grandfather CAD (coronary artery disease) Diabetes Family/Other FH: mental illness Mental health disorder Paternal Aunt No problems noted. Brother Diabetes Hypertension Social History Household Members: Family Housing: House Are you a primary transitional care manager to a significant other at home: No Do you presently have visiting nurse or other home services: No Alcohol intake: current Alcohol intake frequency: does not drink Alcohol type: hard liquor Patient Tobacco Use Status: Never used Tobacco e-Cigarette/Vaping Use: Never Used Second Hand Smoke Exposure: No service: No Current occupational status: employed Current occupational exposures/hazards: No Cognitive needs: No Hearing needs: No Vision needs: Yes Review of Systems Const Reports daytime sleepiness, Reports headache(s) and Reports snoring Eyes Reports no additional complaints, Denies change in vision and Denies other visual disturbances ENT Reports headache(s) and Reports nasal congestion Card Denies chest pain at rest, Denies chest pain with activity, Denies edema, Denies irregular heart rhythm, Denies claudication, Denies dyspnea, Reports dyspnea on exertion, Denies orthopnea, Denies paroxysmal nocturnal dyspnea and Denies slow heart rate Resp Reports chest congestion, Reports cough, Denies dyspnea, Reports dyspnea on exertion, Reports snoring and Denies wheezing GI Denies abdominal pain, Denies change in bowel habits, Denies excessive flatus, Denies nausea and Denies vomiting Musc Reports no additional complaints Skin/Breast Denies rash Neuro Reports no additional complaints and Reports headache(s) Aller/Immun Denies wheezing Physical Exam Vital Signs: Last Vital Signs Pulse 86 11/24/23 09:53 Pulse Ox 98 11/24/23 09:53 Oxygen Delivery Method Room Air 11/24/23 09:53 BMI result Body Mass Index 35.1 Const General: no acute distress and well developed Orientation/consciousness: patient oriented x3 HEENT Head: Yes normal to inspection Mouth: Normal oral and palatal mucosa present Neck Neck: Yes supple Chest Chest palpation & inspection: normal inspection of the chest Resp Effort & Inspection: normal respiratory effort and able to speak in complete sentences Auscultation: no wheezes and diminished lung sounds Cardio Rate: regular rate Rhythm: regular rhythm Heart sounds: S1 normal heart sound present and S2 normal heart sound present Back/Spine/Pelvis Cervical Spine: No cervical muscular tenderness and No Cervical spine tenderness Thoracic/Lumbar Spine: thoracic and lumbar spine normal to inspection, thoraco-lumbar ROM normal, No paraspinal muscle tenderness, No thoracic spinal tenderness and lumbar spinal tenderness Sacroiliac joints: bilaterally tender to palpation Neuro General: patient oriented x3 Extrem General: Yes no clubbing, cyanosis or edema and Yes no pedal edema Psych Speech and movement: Clear speech present Attitude: cooperative Assessment & Plan Assessment & Plan (1) Asthma: Code(s): J45.909 - Unspecified asthma, uncomplicated Qualifiers: Asthma complication type: uncomplicated Asthma persistence: persistent Asthma severity: moderate Qualified Code(s): J45.40 - Moderate persistent asthma, uncomplicated (2) Tachycardia: Code(s): R00.0 - Tachycardia, unspecified (3) Dyspnea: Code(s): R06.00 - Dyspnea, unspecified Qualifiers: Dyspnea type: dyspnea on exertion Qualified Code(s): R06.09 - Other forms of dyspnea (4) Chronic restrictive lung disease: Code(s): J98.4 - Other disorders of lung (5) JAIME (obstructive sleep apnea): Comment: normal PSG Code(s): G47.33 - Obstructive sleep apnea (adult) (pediatric) Plan continue Symbicort Continue short-acting beta agonist as needed Tessalon Perles as needed for cough fluticasone nasal spray home sleep study Follow-up in 3-6 months Orders: Orders RT home sleep study Today G47.33 - Obstructive sleep apnea (adult) (pediatric) Quality Reporting (2019) Adult ([facility] 138/12/09/68) Smoking risk assessment performed?: Yes Patient Tobacco Use Status: Never used Tobacco Coding Level of Care Code Est Pt Level 4 (10514) Diagnoses Moderate persistent asthma without complication J45.40 Asthma complication type: uncomplicated Asthma persistence: persistent Asthma severity: moderate Tachycardia R00.0 Dyspnea on exertion R06.09 Dyspnea type: dyspnea on exertion Chronic restrictive lung disease J98.4 JAIME (obstructive sleep apnea) G47.33 Time Spent (min) 17
[2023-11-24 09:53] VITALS: PULSE 86; O2SAT 98; BMI 35.1
== END 2023-11-24 10:08 | disposition home or self-care (01) ==
PROVIDERS: PCP Internal Medicine; Visit Provider Hospitalist
DX: J45.40 Moderate persistent asthma, uncomplicated (principal); R00.0 Tachycardia, unspecified; R06.09 Other forms of dyspnea; J98.4 Other disorders of lung; G47.33 Obstructive sleep apnea (adult) (pediatric)
CPT/HCPCS: 99214

== ENCOUNTER → 2023-11-24 09:22 | Outpatient (BNVA) | payer OTHER, SELFPAY | PROVIDERS: PCP Internal Medicine; Visit Provider Hospitalist ==

== ENCOUNTER 2023-12-06 18:58 | Emergency (ER) | payer OTHER, SELFPAY ==
[2023-12-06 20:19] VITALS: BP 145/89; PULSE 99; RESP 16; TEMP 36.9; O2SAT 97; BMI 36.6
--- NOTE | 2023-12-06 20:19 | ED.GENADULT ---
HPI - General Adult General Chief complaint: Headache Stated complaint: blurry vision, nausea, states issues with brain Related Data Home Medications Medication Instructions Recorded Confirmed docusate sodium 100 mg capsule 1 cap PO DAILY 08/12/20 09/30/23 (DOK) venlafaxine 75 mg capsule,extended 75 mg PO DAILY 08/12/20 09/30/23 release 24 hr topiramate 50 mg tablet 50 mg PO BEDTIME 01/30/21 09/30/23 acarbose 50 mg tablet 50 mg PO TID PRN (Drug) Ingestion 06/16/22 09/30/23 metoclopramide HCl 10 mg tablet 10 mg PO BID PRN nausea and 06/16/22 09/30/23 vomiting Previous Rx's Medication Instructions Recorded nebulizers #1 ea 06/24/21 ondansetron HCl 4 mg tablet 4 mg PO Q8H PRN nausea and 08/17/21 vomiting 30 days #90 tabs albuterol sulfate 2.5 mg/3 mL 2.5 mg (3 mL) inhalation Q4-6H PRN 04/30/22 (0.083 %) solution for nebulization shortness of breath or wheezing #75 mL alcohol swabs (Alcohol Prep Pads) See Rx Instructions topical BID 08/19/22 for diabetes mellitus #100 ea benzonatate 200 mg capsule 200 mg PO BID PRN cough 30 days 11/30/22 #60 caps cyclobenzaprine 10 mg tablet 10 mg PO DAILY #90 tabs 01/11/23 zolpidem 5 mg tablet 5 mg PO BEDTIME PRN sleep 30 days 03/09/23 #30 tabs lansoprazole 30 mg delayed 30 mg PO DAILY 90 days #90 tabs 03/24/23 release,disintegrating tablet ipratropium 20 mcg-albuterol 100 1 puff inhalation Q6H 30 days #4 05/13/23 mcg/actuation mist for inhalation grams (Combivent Respimat) budesonide-formoterol HFA 160 2 puff inhalation BID 30 days 07/06/23 mcg-4.5 mcg/actuation aerosol #10.2 grams inhaler (Symbicort) duloxetine 60 mg capsule,delayed 60 mg PO DAILY #90 caps 08/17/23 release sucralfate 100 mg/mL oral 10 ml PO BID 30 days #600 mL 08/17/23 suspension (Carafate) fluticasone propionate 50 2 spray intranasal DAILY #16 caps 09/06/23 mcg/actuation nasal spray,suspension Ventolin HFA 90 mcg/actuation 2 puff inhalation Q6H PRN 09/25/23 aerosol inhaler (albuterol sulfate) shortness of breath or wheezing 30 days #8 grams scegukyaqa-witrcfviqyvnn-iyegtpzs 1 tab PO DAILY PRN Migraine 09/30/23 50 mg-325 mg-40 mg tablet Headache #3 tabs ferrous sulfate 325 mg (65 mg 325 mg PO BID 90 days #180 tabs 10/27/23 iron) tablet nabumetone 750 mg tablet 750 mg PO BID #60 tabs 10/28/23 blood sugar diagnostic (FreeStyle #50 ea 11/28/23 Lite Strips) blood-glucose meter (FreeStyle #1 ea 11/28/23 Lite Meter kit) lancets 28 gauge (FreeStyle #50 ea 11/28/23 Lancets) pregabalin 75 mg capsule 75 mg PO BEDTIME 30 days #30 caps 12/02/23 tramadol 50 mg tablet 100 mg (2 x 50 mg) PO Q6H PRN Pain 12/02/23 30 days #240 tabs topiramate 25 mg tablet 25 mg PO BEDTIME 30 days #30 tabs 12/06/23 Allergies Allergy/AdvReac Type Severity Reaction Status Date / Time sumatriptan [SUMATRIPTAN] AdvReac Intermediate PALPITATION Verified 12/06/23 20:19 S PMFSH Past Medical History Medical History (Updated 12/08/23 @ 20:25 by LIGIA Sorenson) COVID-19 History of COVID-19 Tachycardia Dyspnea Chronic restrictive lung disease JAIME (obstructive sleep apnea) Reactive hypoglycemia Hypoglycemia Syncope 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 Hip pain Migraines Fibromyalgia Urticaria DISH (disseminated idiopathic skeletal hyperostosis) Anxiety Hiatal hernia GERD (gastroesophageal reflux disease) History of lupus Asthma Surgical History Status post right breast lumpectomy (01/25/23) History of surgery Hx of cholecystectomy Hx of arthroscopy of knee Hx of gastric bypass History of esophagogastroduodenoscopy (EGD) Family History Family History Father CVD (cardiovascular disease), Onset Age: 65 Mother Hypertension Rheumatoid arthritis Lupus Maternal Grandmother CAD (coronary artery disease) Diabetes Maternal Grandfather CAD (coronary artery disease) Diabetes Family/Other FH: mental illness Mental health disorder Paternal Aunt No problems noted. Brother Diabetes Hypertension Social History Social History Household Members: Family Housing: House Are you a primary health care assistant to a significant other at home: No Do you presently have visiting nurse or other home services: No Alcohol intake: current Alcohol intake frequency: does not drink Alcohol type: hard liquor Patient Tobacco Use Status: Never used Tobacco e-Cigarette/Vaping Use: Never Used Second Hand Smoke Exposure: No Advance Directives: No Advance Directives Information Provided: No service: No Current occupational status: employed Current occupational exposures/hazards: No Cognitive needs: No Hearing needs: No Vision needs: Yes Physical Exam ED Vital Signs: BMI result Body Mass Index 36.6 Course Course Course Narrative: RME: 43 year-old F w/ PMHx GERD, asthma, JAIME, Lupus presenting to the ED c/o migraine, nausea, eye pain, photophobia x3 days and feeling foggy. States she has been out of her Fioricet x2 wks. Took OTC meds w/o relief Labs ordered Full HPI, ROS and PE to be performed by primary ED provider. Medical Decision Making Lab Data 12/06/23 20:51 12/06/23 20:51 Labs: Lab Results 12/06/23 Range/Units 20:51 WBC 5.0 (4.8-10.8) X10*3/uL RBC 4.55 (4.20-5.50) X10*6/uL Hgb 14.0 (12.0-16.0) g/dl Hct 43.7 (37.0-47.0) % MCV 96.0 (80.0-98.0) fL MCH 30.8 (27.0-33.0) pg MCHC 32.0 (31.0-35.0) g/dl RDW 12.3 (11.0-16.0) % Plt Count 215 (160-400) X10*3/uL MPV 11.3 (9.4-12.3) fL Immature Gran % (Auto) 0.2 (0.0-0.4) % Neut % (Auto) 38.3 L (45-73) % Lymph % (Auto) 51.0 H (20-40) % [place] % (Auto) 8.1 (2-11) % Eos % (Auto) 1.4 (0-4) % Baso % (Auto) 1.0 (0-2) % Lymph # (Auto) 2.5 (1.2-4.9) X10*3/uL [place] # (Auto) 0.4 (0.1-1.2) X10*3/uL Eos # (Auto) 0.1 (0.0-0.4) X10*3/uL Baso # (Auto) 0.1 (0.0-0.2) X10*3/uL Abs Immat Gran (auto) 0.01 (0.00-0.03) X10*3/uL Absolute Neuts (auto) 1.9 L (2.0-8.3) x10*3/uL Absolute Nucleated RBC 0.000 (0.0-0.012) X10*3/uL Nucleated RBC % (auto) 0.0 (0.0-0.2) /100WBC Sodium 140 (135-145) mmol/L Potassium 4.1 (3.3-5.1) mmol/L Chloride 102 (96-108) mmol/L Carbon Dioxide 25 (22-29) mmol/L Anion Gap 17 (12-20) BUN 17 H (9-16) mg/dL Creatinine 0.81 (0.5-1.4) mg/dL Estim Creat Clear Calc 97.4 Estimated GFR > 60 Random Glucose 108 (60-115) mg/dL Calcium 9.3 (8.4-10.2) mg/dL Discharge Plan Discharge Clinical Impression: Migraine Patient Disposition: Left W/O Completing Treatment Prescriptions: No Action ondansetron HCl 4 mg tablet 4 mg PO Q8H PRN (Reason: nausea and vomiting) 30 Days Qty: 90 1RF albuterol sulfate 2.5 mg /3 mL (0.083 %) solution for nebulization 2.5 mg inhalation Q4-6H PRN (Reason: shortness of breath or wheezing) Qty: 75 0RF alcohol swabs [Alcohol Prep Pads] Pads, Medicated See Rx Instructions topical BID Qty: 100 0RF Rx Instructions: topically 2 times a day; cyclobenzaprine 10 mg tablet 10 mg PO DAILY Qty: 90 3RF zolpidem 5 mg tablet 5 mg PO BEDTIME PRN (Reason: sleep) 30 Days Qty: 30 0RF lansoprazole 30 mg tablet,disintegrat, delay rel 30 mg PO DAILY 90 Days Qty: 90 1RF Combivent Respimat 20-100 mcg/actuation mist 1 puff inhalation Q6H 30 Days Qty: 4 2RF budesonide-formoterol [Symbicort] 160-4.5 mcg/actuation HFA aerosol inhaler 2 puff inhalation BID 30 Days Qty: 10.2 11RF sucralfate [Carafate] 100 mg/mL suspension 10 ml PO BID 30 Days Qty: 600 6RF duloxetine 60 mg capsule,delayed release(DR/EC) 60 mg PO DAILY Qty: 90 1RF fluticasone propionate 50 mcg/actuation spray,suspension 2 spray intranasal DAILY Qty: 16 10RF albuterol sulfate [Ventolin HFA] 90 mcg/actuation HFA aerosol inhaler 2 puff inhalation Q6H PRN (Reason: shortness of breath or wheezing) 30 Days Qty: 8 1RF ferrous sulfate 325 mg (65 mg iron) tablet 325 mg PO BID 90 Days Qty: 180 2RF nabumetone 750 mg tablet 750 mg PO BID Qty: 60 2RF (DME) blood-glucose meter [FreeStyle Lite Meter] Kit See Rx Instructions miscellaneous .MEDSUPPLY Qty: 1 0RF Rx Instructions: Twice a day (DME) FreeStyle Lite Strips Strip See Rx Instructions .ROUTE .COMPLEX Qty: 50 5RF Dose Instruction: USE DIRECTED 2 TIMES A DAY Rx Instructions: USE DIRECTED 2 TIMES A DAY (DME) lancets [FreeStyle Lancets] 28 gauge misc See Rx Instructions .MEDSUPPLY Qty: 50 5RF Rx Instructions: To times a day pregabalin 75 mg capsule 75 mg PO BEDTIME 30 Days Qty: 30 0RF tramadol 50 mg tablet 100 mg PO Q6H PRN (Reason: Pain) 30 Days Qty: 240 0RF topiramate 25 mg tablet 25 mg PO BEDTIME 30 Days Qty: 30 0RF venlafaxine 75 mg capsule,extended release 24hr 75 mg PO DAILY docusate sodium [DOK] 100 mg capsule 1 cap PO DAILY (DME) nebulizers Misc See Rx Instructions .Route Qty: 1 0RF Rx Instructions: As directed topiramate 50 mg tablet 50 mg PO BEDTIME ezcovlswkp-uthefkddeklih-nyol 50-325-40 mg tablet 1 tab PO DAILY PRN (Reason: Migraine Headache) Qty: 3 0RF benzonatate 200 mg capsule 200 mg PO BID PRN (Reason: cough) 30 Days Qty: 60 6RF acarbose 50 mg tablet 50 mg PO TID PRN (Reason: (Drug) Ingestion) metoclopramide HCl 10 mg tablet 10 mg PO BID PRN (Reason: nausea and vomiting) Discharge Date/Time: 12/06/23 22:49
[2023-12-06 20:55] LABS: MANUAL DIFF FLAG NO
[2023-12-06 20:56] LABS: Basophils Absolute Auto 0.1 X10*3/uL (0.0-0.2); Eosinophils Absolute Auto 0.1 X10*3/uL (0.0-0.4); Eosinophils Percent Auto 1.4 % (0-4); Hematocrit 43.7 % (37.0-47.0); Imm Gran Abs Auto 0.01 X10*3/uL (0.00-0.03); Imm Gran Pct Auto 0.2 % (0.0-0.4); Lymphocytes Absolute Auto 2.5 X10*3/uL (1.2-4.9); Mean Corpuscular Hemoglobin 30.8 pg (27.0-33.0); Mean Platelet Volume 11.3 fL (9.4-12.3); Monocytes Absolute Auto 0.4 X10*3/uL (0.1-1.2); Monocytes Percent Auto 8.1 % (2-11); Neutrophils Absolute Auto 1.9 x10*3/uL (2.0-8.3); Neutrophils Percent Auto 38.3 % (45-73); Platelet Count 215 X10*3/uL (160-400); Red Blood Count 4.55 X10*6/uL (4.20-5.50); Red Cell Distribution Width 12.3 % (11.0-16.0)
[2023-12-06 21:07] LABS: Anion Gap 17 (12-20); Blood Urea Nitrogen 17 mg/dL (9-16); Calcium 9.3 mg/dL (8.4-10.2); Carbon Dioxide 25 mmol/L (22-29); Chloride 102 mmol/L (96-108); Creatinine Clr Calc Pharmacy 97.4; Estimated Glomerular Filt Rate > 60; Glucose Random 108 mg/dL (60-115); Potassium 4.1 mmol/L (3.3-5.1); Sodium 140 mmol/L (135-145)
== END 2023-12-06 22:49 | disposition left against medical advice (07) ==
PROVIDERS: Physician Assistant; Emergency Provider Emergency Medicine; PCP Internal Medicine
DX: G43.909 Migraine, unspecified, not intractable, without status migrainosus (principal); H53.8 Other visual disturbances; R11.0 Nausea; Z79.899 Other long term (current) drug therapy
CPT/HCPCS: 36415; 80048; 85025; 99281; 99283

== ENCOUNTER 2024-01-05 07:44 | Outpatient (AMB) | payer OTHER, SELFPAY ==
--- NOTE | 2024-01-05 07:46 | A.OFFPC_ITS ---
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 Required: No Accompanied by: Self / Same As Patient Allergies ondansetron Adverse Reaction (Intermediate, Verified 01/05/24 08:16) agitation sumatriptan [SUMATRIPTAN] Adverse Reaction (Intermediate, Verified 01/05/24 08:11) PALPITATIONS Medication List - Last Reconciled 01/05/24 by Muriel Julian MD acarbose 50 mg PO TID PRN albuterol sulfate 2.5 mg (3 mL) inhalation Q4-6H PRN alcohol swabs (Alcohol Prep Pads) topically 2 times a day; benzonatate 200 mg PO BID PRN 30 days blood sugar diagnostic (FreeStyle Lite Strips) USE DIRECTED 2 TIMES A DAY blood-glucose meter (FreeStyle Lite Meter kit) Twice a day budesonide-formoterol 160-4.5 mcg/actuation (Symbicort) 2 puffs inhalation BID 30 days iavevngmbx-zltqletyunntm-tzyz 50-325-40 mg 1 tab PO DAILY PRN cyclobenzaprine 10 mg PO DAILY docusate sodium (DOK) 1 cap PO DAILY duloxetine 60 mg PO DAILY ferrous sulfate 325 mg PO BID 90 days fluticasone propionate 50 mcg/actuation 2 sprays intranasal DAILY ipratropium-albuterol 20-100 mcg/actuation (Combivent Respimat) 1 puff inhalation Q6H 30 days lancets (FreeStyle Lancets) To times a day lansoprazole 30 mg PO DAILY 90 days metoclopramide HCl 10 mg PO BID PRN nabumetone 750 mg PO BID nebulizers As directed ondansetron HCl 4 mg PO Q8H PRN 30 days pregabalin 75 mg PO BEDTIME 30 days sucralfate (Carafate) 10 mL PO BID 30 days topiramate 50 mg PO BEDTIME topiramate 25 mg PO BEDTIME 30 days tramadol 100 mg (2 x 50 mg) PO Q6H PRN 30 days venlafaxine ER 75 mg PO DAILY Ventolin HFA 90 mcg/actuation (albuterol sulfate) 2 puffs inhalation Q6H PRN 30 days NS zolpidem 5 mg PO BEDTIME PRN 30 days Tobacco use date assessed: 01/05/24 Dental Screening Dental Screen Date: 01/05/24 Did you have a dental visit in the last 12 months?: Yes Did you have a dental problem in the last 6 months where you did not have access to dental care?: No Was dental information given to patient?: Patient has dentist HPI HPI Comments History of Present Illness Details This is a 43-year-old female with asthma, mild major depression, migrai jaquelin and fibromyalgia that comes today for preop evaluation of left thumb trigger finger release scheduled for 01/20/2024. Asthma stable with long-acting inhaler. Depression well controlled with Cymbalta as well as fibromyalgia. She use Fioricet as needed for migraines and this is follow by Neurology. Denies any chest pain or shortness of breath. Has 5-7 Mets of ADLs. Going to medium risk surgery with general anesthesia. EKG and labs are pending for medical clearance. 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 Hip pain Migraines Fibromyalgia Urticaria DISH (disseminated idiopathic skeletal hyperostosis) Anxiety Hiatal hernia GERD (gastroesophageal reflux disease) History of lupus Asthma Surgical History Status post right breast lumpectomy (01/25/23) History of surgery Hx of cholecystectomy Hx of arthroscopy of knee Hx of gastric bypass History of esophagogastroduodenoscopy (EGD) Family History Father CVD (cardiovascular disease), Onset Age: 65 Mother Hypertension Rheumatoid arthritis Lupus Maternal Grandmother CAD (coronary artery disease) Diabetes Maternal Grandfather CAD (coronary artery disease) Diabetes Family/Other FH: mental illness Mental health disorder Paternal Aunt No problems noted. Brother Diabetes Hypertension Social History (Updated 01/05/24 @ 08:21 by Muriel Julian MD) Household Members: Family Housing: House Are you a primary caregivers non medical to a significant other at home: No Do you presently have visiting nurse or other home services: No Alcohol intake: current Alcohol intake frequency: holidays/special occasions only Alcohol type: hard liquor Patient Tobacco Use Status: Never used Tobacco e-Cigarette/Vaping Use: Never Used Second Hand Smoke Exposure: No service: No Current occupational status: employed Current occupational exposures/hazards: No Cognitive needs: No Hearing needs: No Vision needs: Yes Questionnaire PHQ-9 Over the last 2 weeks, how often have you been bothered by any of the following problems? 1. Little interest or pleasure in doing things: not at all 2. Feeling down, depressed, or hopeless: several days 3. Trouble falling or staying asleep, or sleeping too much: more than half the days 4. Feeling tired or having little energy: more than half the days 5. Poor appetite or overeating: several days 6. Feeling bad about yourself - or that you are a failure or have let yourself or your family down: not at all 7. Trouble concentrating on things, such as reading the newspaper or watching television: not at all 8. Moving or speaking so slowly that other people could have noticed. Or the opposite - being so fidgety or restless that you have been moving around a lot more than usual: several days 9. Thoughts that you would be better off or of hurting yourself in some way: not at all Total score: 7 Depression Screening Interpretation: Positive Depression Screening Follow-up: Existing condition Depression Screening Done: Yes 96231 - PHQ-9 Billing: Yes Source: Developed by Drs. Emmanuel Chatterjee, Krysten Matamoros, Cameron Hanley and colleagues, with an educational kaitlin from [employer]. Thrive Questionnaire Date Thrive assessed: 01/05/24 I am a: Patient What is your living situation today?: I have a steady place to live Within the past 12 months, did the food you bought not last and you didn't have the money to get more?: Never true Within the past 12 months, did you worry whether your food would run out before you got money to buy more?: Never true Do you have trouble paying for medicines?: No Do you have trouble getting transportation to medical appointments?: No Do you have trouble paying your heating and electricity bill?: No Do you have trouble taking care of your child, family member or friend?: No Do you have trouble with day-to-day activities such as bathing, preparing meals, shopping, managing finances, etc.?: No Are you currently unemployed and looking for a job?: No Are you interested in more education?: No Please select the resources that you would like help with: None Currently or been in a relationship where the following occur: no concerns reported THRIVE Score: 0 AUDIT C Alcohol Use Questionnaire (AUDIT-C) 1. How often do you have a drink containing alcohol?: Monthly or less 2. How many drinks containing alcohol do you have on a typical day when you are drinking?: 1 or 2 3. How often do you have six or more drinks on one occasion?: Never Total Score: 1 JOSEPHINE-7 AMB Questionnaire JOSEPHINE-7 Date JOSEPHINE - 7 assessed: 01/05/24 Feeling nervous, anxious, or on edge: 1 = Several days Not being able to stop or control worryin = Not at all Worrying too much about different things: 1 = Several days Trouble relaxin = Not at all Being so restless that it is hard to sit still: 0 = Not at all Becoming easily annoyed or irritable: 1 = Several days Feeling afraid as if something awful might happen: 0 = Not at all Total JOSEPHINE-7 score (0-4 normal; 5-9 mild; 10-14 moderate; 15-21 severe): 3 Source: Developed by Drs. Emmanuel Chatterjee, Krysten Matamoros, Cameron Hanley and colleagues, with an educational kaitlin from [employer]. JOSEPHINE-7 Assessment Billing JOSEPHINE-7 Assessment Tool: JOSEPHINE-7 Assessment 93614 Review of Systems Const All systems reviewed & are unremarkable except as noted in HPI and below Eyes Reports no additional complaints, Denies change in vision and Denies other visual disturbances Card Denies chest pain at rest, Denies chest pain with activity, Denies edema, Denies irregular heart rhythm, Denies claudication, Denies dyspnea, Denies dyspnea on exertion, Denies orthopnea, Denies paroxysmal nocturnal dyspnea and Denies slow heart rate Resp Denies cough, Denies dyspnea and Denies dyspnea on exertion GI Denies abdominal pain, Denies change in bowel habits, Denies excessive flatus, Denies nausea and Denies vomiting Denies urinary incontinence, Denies urinary hesitancy and Denies urinary urgency Musc Denies atrophy, Denies deformity and Denies limited range of motion Physical exam (Primary Care) Vital Signs: Last Vital Signs BP 132/85 01/05/24 08:36 BMI result Body Mass Index 36.0 Tobacco/Smoking Status: Tobacco use Status Tobacco use date assessed 01/05/24 01/05/24 08:01 Patient Tobacco Use Status Never used Tobacco 01/05/24 08:21 e-Cigarette/Vaping Use Never Used 01/05/24 08:21 PHQ-9: PHQ-9 Score PHQ-9: Total score 7 01/05/24 08:40 Depression Screening Interpretation: Positive Depression Screening Follow-up: Existing condition Thrive Assessment: Date of Thrive Assessment Date Thrive assessed 01/05/24 01/05/24 08:01 Currently or been in a relationship where the following occur: no concerns reported Resp Effort & Inspection: normal respiratory effort Auscultation: clear to auscultation bilaterally Cardio Jugular venous distension: no JVD Rate: regular rate Rhythm: regular rhythm Heart sounds: S1 normal heart sound present and S2 normal heart sound present Extrem General: Yes full ROM Assessment and Plan Assessment & Plan (1) Pre-op evaluation: Code(s): Z01.818 - Encounter for other preprocedural examination Plan: EKG and labs pending for medical clearance. (2) Mild major depression: Code(s): F32.0 - Major depressive disorder, single episode, mild Plan: Continue Cymbalta. (3) Asthma: Code(s): J45.909 - Unspecified asthma, uncomplicated Qualifiers: Asthma complication type: uncomplicated Asthma persistence: persistent Asthma severity: moderate Qualified Code(s): J45.40 - Moderate persistent asthma, uncomplicated Plan: Continue long-acting inhaler. Use rescue inhaler as needed. Follow-up with pulmonology. Chest x-ray ordered. (4) Fibromyalgia: Code(s): M79.7 - Fibromyalgia Plan: Continue Cymbalta. (5) Migraines: Code(s): G43.909 - Migraine, unspecified, not intractable, without status migrainosus Plan: Continue Fioricet as needed. Orders: Orders XR chest 2V Today J45.909 - Unspecified asthma, uncomplicated Complete Blood Count Auto Diff Today D64.9 - Anemia, unspecified Comprehensive Eldred. Panel Fast Today E16.1 - Other hypoglycemia, E66.9 - Obesity, unspecified ECG 12 lead EKG Today Z01.818 - Encounter for other preprocedural examination Medications: Changed From metoclopramide HCl 10 mg PO BID PRN nausea and vomiting To metoclopramide HCl 10 mg PO BID 30 days PRN 60 tabs 0RF nausea and vomiting Discontinued ondansetron HCl Discontinued Reason: Patient Refused 4 mg PO Q8H 30 days PRN 90 tabs 1RF nausea and vomiting zolpidem Discontinued Reason: Patient Refused 5 mg PO BEDTIME 30 days PRN 30 tabs 0RF sleep Coding Level of Care Code Est Pt Level 4 (58199) Diagnoses Pre-op evaluation Z01.818 Mild major depression F32.0 Moderate persistent asthma without complication J45.40 Asthma complication type: uncomplicated Asthma persistence: persistent Asthma severity: moderate Fibromyalgia M79.7 Migraines G43.909 Additional Codes JOSEPHINE-7 Assessment Billing - JOSEPHINE-7 Assessment Tool: JOSEPHINE-7 Assessment 57088 ([id number]) Time Spent (min) 24
[2024-01-05 07:47] VITALS: BP 132/90; BMI 36.0
[2024-01-05 08:36] VITALS: BP 132/85
== END 2024-01-05 08:24 | disposition home or self-care (01) ==
PROVIDERS: PCP Internal Medicine; Visit Provider Internal Medicine
DX: F32.0 Major depressive disorder, single episode, mild (principal); Z01.818 Encounter for other preprocedural examination; J45.40 Moderate persistent asthma, uncomplicated; M79.7 Fibromyalgia; G43.909 Migraine, unspecified, not intractable, without status migrainosus
CPT/HCPCS: 99214

== ENCOUNTER 2024-01-05 08:32 | Outpatient (REF) | payer OTHER, SELFPAY ==
--- NOTE | ~2024-01-05 | XR_ITS ---
EXAMINATION: XR CHEST CLINICAL INFORMATION: Unspecified asthma, uncomplicated. COMPARISON: 11/30/2022. TECHNIQUE: 3 views of the chest were obtained. FINDINGS: There is no gross pneumothorax. Heart size is normal. Surgical clips in the upper abdomen. No pleural effusion. No focal consolidation to suggest pneumonia. Degenerative changes in the thoracic spine. XR/XR chest 2V IMPRESSION: No evidence of pneumonia.
--- NOTE | 2024-01-05 08:41 | ECG_ITS ---
Test Reason : z01.818 Blood Pressure : / mmHG Vent. Rate : 068 BPM Atrial Rate : 068 BPM P-R Int : 120 ms QRS Dur : 084 ms QT Int : 384 ms P-R-T Axes : 003 058 041 degrees QTc Int : 408 ms Normal sinus rhythm Normal ECG When compared with ECG of 16-MAY-2016 08:50, No significant change was found Referred By: Muriel Julian Electronically Signed By:VASILE SEGURA
[2024-01-05 08:53] LABS: MANUAL DIFF FLAG NO
[2024-01-05 09:08] LABS: Basophils Percent Auto 0.6 % (0-2); Eosinophils Absolute Auto 0.1 X10*3/uL (0.0-0.4); Eosinophils Percent Auto 1.9 % (0-4); Hematocrit 43.1 % (37.0-47.0); Hemoglobin 13.5 g/dl (12.0-16.0); Lymphocytes Absolute Auto 1.5 X10*3/uL (1.2-4.9); Lymphocytes Percent Auto 47.8 % (20-40); Mean Corpuscular HGB Conc 31.3 g/dl (31.0-35.0); Mean Corpuscular Hemoglobin 30.3 pg (27.0-33.0); Mean Corpuscular Volume 96.9 fL (80.0-98.0); Mean Platelet Volume 11.5 fL (9.4-12.3); Monocytes Absolute Auto 0.3 X10*3/uL (0.1-1.2); Monocytes Percent Auto 9.7 % (2-11); Neutrophils Absolute Auto 1.3 x10*3/uL (2.0-8.3); Platelet Count 196 X10*3/uL (160-400); Red Blood Count 4.45 X10*6/uL (4.20-5.50); Red Cell Distribution Width 12.4 % (11.0-16.0); White Blood Count 3.2 X10*3/uL (4.8-10.8)
[2024-01-05 09:48] LABS: Alanine Aminotransferase 13 U/L (0-31); Albumin Level 3.8 g/dL (3.5-5.0); Alkaline Phosphatase 62 U/L (39-117); Anion Gap 10 (12-20); Aspartate Amino Transferase 14 U/L (5-31); Bilirubin Total 0.3 mg/dL (0.0-1.0); Blood Urea Nitrogen 15 mg/dL (9-16); Calcium 8.9 mg/dL (8.4-10.2); Carbon Dioxide 29 mmol/L (22-29); Chloride 105 mmol/L (96-108); Cholesterol 210 mg/dL (<200); Estimated Glomerular Filt Rate > 60; Glucose Fasting 102 mg/dL (60-99); HDL Cholesterol 79 mg/dL (>40); LDL Cholesterol Calculated 116 mg/dL (<100); Potassium 4.3 mmol/L (3.3-5.1); Sodium 140 mmol/L (135-145); Total Protein 7.3 g/dL (6.5-8.0); Triglycerides 79 mg/dL (<150)
[2024-01-05 10:35] LABS: Folate 12.1 ng/mL (> or = 4.0); Vitamin B12 460 pg/mL (200-900)
== END 2024-01-05 08:33 | disposition home or self-care (01) ==
LOC: HO.XRAY 08:32
PROVIDERS: PCP Internal Medicine; Visit Provider Internal Medicine
DX: Z01.818 Encounter for other preprocedural examination (principal); J45.909 Unspecified asthma, uncomplicated; D64.9 Anemia, unspecified; E55.9 Vitamin D deficiency, unspecified; E53.8 Deficiency of other specified B group vitamins; E66.9 Obesity, unspecified; E16.1 Other hypoglycemia; E78.5 Hyperlipidemia, unspecified
CPT/HCPCS: 36415; 71046; 80053; 80061; 82306; 82607; 82746; 85025; 93005

== ENCOUNTER → 2024-01-05 08:41 | Outpatient (BNV) | payer OTHER, SELFPAY | PROVIDERS: PCP Internal Medicine; Visit Provider Internal Medicine | DX: Z01.818 Encounter for other preprocedural examination (principal) | CPT/HCPCS: 93010 ==

== ENCOUNTER 2024-02-09 17:26 | Outpatient (REF) | payer OTHER, SELFPAY | END 2024-02-09 17:27 | disposition home or self-care (01) | LOC: HO.MRI 17:26 | PROVIDERS: PCP Internal Medicine; Visit Provider Internal Medicine | DX: Z13.89 Encounter for screening for other disorder (principal) ==

== ENCOUNTER 2024-06-23 11:30 | Outpatient (AMB) | payer OTHER, SELFPAY ==
--- NOTE | 2024-06-23 11:42 | A.OFFVIS_ITS ---
Vital Signs 06/23/24 11:53 Height 5 ft 3 in Weight 202 lb BMI 35.8 Intake Visit Reasons: OV - Right Knee Pain Intake Note: Tonie is a 44 year old female who presents today with complaints of right knee pain. History of rt Knee 02/18/2017, last injection 08/21/2021 w/ [facility]. She expresses her right knee has gradually worsened with pain and swelling. She expresses a new onset of pain in her left knee since she has been favoring this knee. Patient would like to receive injection today for her right knee Pt also requesting x-rays. Allergies ondansetron Adverse Reaction (Intermediate, Verified 06/23/24 11:58) agitation sumatriptan [SUMATRIPTAN] Adverse Reaction (Intermediate, Verified 06/23/24 11:58) PALPITATIONS HPI HPI OV - Right Knee Pain: Details: Tonie is a 44 year old female who presents today with complaints of right knee pain. History of rt Knee 02/18/2017, last injection 08/21/2021 w/ [facility]ud[facility] Meuse. She expresses her right knee has gradually worsened with pain and swelling. She expresses a new onset of pain in her left knee since she has been favoring this knee. Patient would like to receive injection today for her right knee Pt also requesting x-rays. 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 Hip pain Migraines Fibromyalgia Urticaria DISH (disseminated idiopathic skeletal hyperostosis) Anxiety Hiatal hernia GERD (gastroesophageal reflux disease) History of lupus Asthma Surgical History Status post right breast lumpectomy (01/25/23) History of surgery Hx of cholecystectomy Hx of arthroscopy of knee Hx of gastric bypass History of esophagogastroduodenoscopy (EGD) Family History Father CVD (cardiovascular disease), Onset Age: 65 Mother Hypertension Rheumatoid arthritis Lupus Maternal Grandmother CAD (coronary artery disease) Diabetes Maternal Grandfather CAD (coronary artery disease) Diabetes Family/Other FH: mental illness Mental health disorder Paternal Aunt No problems noted. Brother Diabetes Hypertension Social History Household Members: Family Housing: House Are you a primary workforce investment act career manager to a significant other at home: No Do you presently have visiting nurse or other home services: No Alcohol intake: current Alcohol intake frequency: holidays/special occasions only Alcohol type: hard liquor Patient Tobacco Use Status: Never used Tobacco e-Cigarette/Vaping Use: Never Used Second Hand Smoke Exposure: No service: No Current occupational status: employed Current occupational exposures/hazards: No Cognitive needs: No Hearing needs: No Vision needs: Yes Physical Exam Vital Signs: BMI result Body Mass Index 35.8 Extrem Other: Moderate right knee effusion with tenderness to palpation along the medial joint line. Negative Marshal's. Office Procedures Joint Injection/Aspiration Joint Injection/Aspiration Details: Injected 1 mL of Decadron and 3 mL 1% lidocaine and 3 mL of 0.25% Marcaine. Site was prepped using aseptic technique. Patient tolerated the procedure well. Primary Site: right knee Approach Used: anterolateral Coding - Large joint Procedure code (CPT) selection complete Quality Reporting (2019) Adult ([facility] /[birth year]) Smoking risk assessment performed?: Yes Patient Tobacco Use Status: Never used Tobacco Assessment & Plan Assessment & Plan (1) Osteoarthritis of right knee: Code(s): M17.11 - Unilateral primary osteoarthritis, right knee Category: Medical Plan: This is a 44-year-old woman with right knee effusion and history of osteoarthritis. I injected her right knee. I recommend physical therapy and we discussed other treatment options. She is already taking NSAIDs and not interested in PT at this time. (2) Fibromyalgia: Code(s): M79.7 - Fibromyalgia Category: Medical Plan: She has history of fibromyalgia and states this may be contributing to some of her pain. I do not think there is a surgical option for her knee but I will make a referral to pain management. Orders: Referrals Pain Management Referral M17.11 - Unilateral primary osteoarthritis, right knee Coding Level of Care Code Est Pt Level 3 (54225) Diagnoses Osteoarthritis of right knee M17.11 Fibromyalgia M79.7 CPT Codes Coding - Large joint: 60003 - Large joint ([id number])
[2024-06-23 11:53] VITALS: BMI 35.8
== END 2024-06-23 14:25 | disposition home or self-care (01) ==
PROVIDERS: PCP Internal Medicine; Visit Provider Orthopaedic Surgery
DX: M17.11 Unilateral primary osteoarthritis, right knee (principal); M79.7 Fibromyalgia
CPT/HCPCS: 20610; 99213

== ENCOUNTER → 2024-06-23 11:30 | Outpatient (BNVA) | payer OTHER, SELFPAY | PROVIDERS: PCP Internal Medicine; Visit Provider Orthopaedic Surgery | DX: M17.11 Unilateral primary osteoarthritis, right knee (principal); M79.7 Fibromyalgia | CPT/HCPCS: 20610; J0665; J1100 ==

== ENCOUNTER 2024-07-03 17:23 | Outpatient (AMB) | payer OTHER, SELFPAY ==
[2024-07-03 17:24] VITALS: BP 132/80; BMI 35.8
--- NOTE | 2024-07-03 17:24 | MHC.PC.OV ---
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 Accompanied by: Self / Same As Patient Allergies ondansetron Adverse Reaction (Intermediate, Verified 07/03/24 17:34) agitation sumatriptan [SUMATRIPTAN] Adverse Reaction (Intermediate, Verified 07/03/24 17:34) PALPITATIONS Medication List - Last Reconciled 07/03/24 by Muriel Julian MD acarbose 50 mg PO TID PRN albuterol sulfate 2.5 mg (3 mL) inhalation Q4-6H PRN alcohol swabs (Alcohol Prep Pads) topically 2 times a day; blood sugar diagnostic (FreeStyle Lite Strips) USE DIRECTED 2 TIMES A DAY blood-glucose meter (FreeStyle Lite Meter kit) Twice a day budesonide-formoterol 160-4.5 mcg/actuation (Symbicort) 2 puffs inhalation BID 30 days ozqkhjgjvo-jkhwjabuaotya-ijtn 50-325-40 mg 1 tab PO DAILY PRN cyclobenzaprine 10 mg PO DAILY docusate sodium (DOK) 1 cap PO DAILY duloxetine 60 mg PO DAILY ferrous sulfate 325 mg PO BID 90 days fluticasone propionate 50 mcg/actuation 2 sprays intranasal DAILY ipratropium-albuterol 20-100 mcg/actuation (Combivent Respimat) 1 puff inhalation Q6H 30 days lancets (FreeStyle Lancets) To times a day lansoprazole 30 mg PO DAILY 90 days metoclopramide HCl 10 mg PO BID PRN 30 days nabumetone 750 mg PO BID nebulizers As directed pregabalin 75 mg PO BEDTIME 30 days rimegepant (Nurtec ODT) 75 mg PO DAILY sucralfate (Carafate) 10 mL PO BID 30 days topiramate 25 mg PO BEDTIME 30 days tramadol 100 mg (2 x 50 mg) PO Q6H PRN 30 days venlafaxine ER 75 mg PO DAILY Ventolin HFA 90 mcg/actuation (albuterol sulfate) 2 puffs inhalation Q6H PRN 30 days NS Tobacco use date assessed: 01/05/24 Dental Screening Dental Screen Date: 01/05/24 HPI HPI Comments History of Present Illness Details This is a 44-year-old female with fibromyalgia, migraines and mild major depression that comes today complaining of a right breast painful mass at 08:00 o'clock that she noticed about a month ago. No nipple discharge or retraction. Ultrasound of the breast and mammogram will be ordered. She is also obese with a BMI of 35.8 and was advised to do diet and exercise. Will benefit from Wegovy. Fibromyalgia stable with Lyrica. She follows with Neurology for her migraines. Mild major depression stable with duloxetine. No chest pain or shortness on breath. 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 Hip pain Migraines Fibromyalgia Urticaria DISH (disseminated idiopathic skeletal hyperostosis) Anxiety Hiatal hernia GERD (gastroesophageal reflux disease) History of lupus Asthma Surgical History Status post right breast lumpectomy (01/25/23) History of surgery Hx of cholecystectomy Hx of arthroscopy of knee Hx of gastric bypass History of esophagogastroduodenoscopy (EGD) Family History Father CVD (cardiovascular disease), Onset Age: 65 Mother Hypertension Rheumatoid arthritis Lupus Maternal Grandmother CAD (coronary artery disease) Diabetes Maternal Grandfather CAD (coronary artery disease) Diabetes Family/Other FH: mental illness Mental health disorder Paternal Aunt No problems noted. Brother Diabetes Hypertension Social History Household Members: Family Housing: House Are you a primary resident care associate to a significant other at home: No Do you presently have visiting nurse or other home services: No Alcohol intake: current Alcohol intake frequency: holidays/special occasions only Alcohol type: hard liquor Patient Tobacco Use Status: Never used Tobacco e-Cigarette/Vaping Use: Never Used Second Hand Smoke Exposure: No service: No Current occupational status: employed Current occupational exposures/hazards: No Cognitive needs: No Hearing needs: No Vision needs: Yes Questionnaire Thrive Questionnaire Date Thrive assessed: 01/05/24 Are you currently unemployed and looking for a job?: I choose not to answer this question JOSEPHINE-7 AMB Questionnaire JOSEPHINE-7 Date JOSEPHINE - 7 assessed: 01/05/24 Source: Developed by Drs. Emmanuel Chatterjee, Krysten Matamoros, Cameron Hanley and colleagues, with an educational kaitlin from [employer]. Review of Systems Const All systems reviewed & are unremarkable except as noted in HPI and below Card Denies chest pain at rest, Denies chest pain with activity, Denies edema, Denies irregular heart rhythm, Denies claudication, Denies dyspnea, Denies dyspnea on exertion, Denies orthopnea, Denies paroxysmal nocturnal dyspnea and Denies slow heart rate Resp Denies cough, Denies dyspnea and Denies dyspnea on exertion GI Denies abdominal pain, Denies change in bowel habits, Denies excessive flatus, Denies nausea and Denies vomiting Denies urinary incontinence, Denies urinary hesitancy and Denies urinary urgency Musc Denies atrophy, Denies deformity and Denies limited range of motion Skin/Breast Denies bleeding lesions, Reports breast pain, Reports breast mass, Denies changing lesions and Denies rash Physical exam (Primary Care) Vital Signs: Last Vital Signs BP 132/80 07/03/24 17:24 BMI result Body Mass Index 35.8 BMI Assessment/Plan discussion: High BMI High, discussed plan: lifestyle, weight reduction, dietary and physical activity Tobacco/Smoking Status: Tobacco use Status Tobacco use date assessed 01/05/24 07/03/24 17:32 Patient Tobacco Use Status Never used Tobacco 07/03/24 17:32 e-Cigarette/Vaping Use Never Used 07/03/24 17:32 Thrive Assessment: Date of Thrive Assessment Date Thrive assessed 01/05/24 07/03/24 17:32 Const Nutritional Appearance: obese Chest Breast/axilla palpation: abnormal palpation of the breast (Right breast tender mass at 08:00 o'clock) Resp Effort & Inspection: normal respiratory effort Auscultation: clear to auscultation bilaterally Cardio Jugular venous distension: no JVD Rate: regular rate Rhythm: regular rhythm Heart sounds: S1 normal heart sound present and S2 normal heart sound present Extrem General: Yes full ROM Assessment and Plan Assessment & Plan (1) Breast mass, right: Comment: At 8 o'clock Code(s): N63.10 - Unspecified lump in the right breast, unspecified quadrant Qualifiers: Breast mass location: lower outer quadrant Qualified Code(s): N63.13 - Unspecified lump in the right breast, lower outer quadrant Plan: Ultrasound of the breast and mammogram ordered. (2) Left foot pain: Code(s): M79.672 - Pain in left foot Plan: X-ray ordered. (3) Right foot pain: Code(s): M79.671 - Pain in right foot Plan: X-ray ordered. (4) Obese: Code(s): E66.9 - Obesity, unspecified Qualifiers: Obesity type: due to excess calories Obesity classification: adult class 2 (BMI 35 - 39.9) Serious obesity comorbidity presence: with serious comorbidity Body mass index: BMI 35.0-35.9 Qualified Code(s): E66.01 - Morbid (severe) obesity due to excess calories; Z68.35 - Body mass index [BMI] 35.0-35.9, adult Plan: Start Wegovy. (5) Mild major depression: Code(s): F32.0 - Major depressive disorder, single episode, mild Plan: Continue duloxetine. (6) Migraines: Code(s): G43.909 - Migraine, unspecified, not intractable, without status migrainosus Qualifiers: Migraine type: unspecified Status migrainosus presence: without status migrainosus Intractability: not intractable Qualified Code(s): G43.909 - Migraine, unspecified, not intractable, without status migrainosus Plan: Continue Nurtec. (7) Fibromyalgia: Code(s): M79.7 - Fibromyalgia Plan: Continue Lyrica. Orders: Orders MM diagnostic mammo BI Today N63.10 - Unspecified lump in the right breast, unspecified quadrant US breast RT complete Today N63.10 - Unspecified lump in the right breast, unspecified quadrant XR foot LT 2V Today M79.672 - Pain in left foot XR foot RT 2V Today M79.671 - Pain in right foot Medications: New semaglutide (weight loss) (Wegovy) administer weeks 1 through 4 of therapy 0.25 mg (0.5 mL) subcut QWEEK 2 mL 0RF 4 weeks E66.9 - Obesity, unspecified Coding Level of Care Code Est Pt Level 4 (26961) Complex EM visit Add On G2211 Diagnoses Mass of lower outer quadrant of right breast N63.13 Breast mass location: lower outer quadrant Left foot pain M79.672 Right foot pain M79.671 Class 2 severe obesity due to excess calories with serious comorbidity and body mass index (BMI) of 35.0 to 35.9 in adult E66.01; Z68.35 Obesity type: due to excess calories Obesity classification: adult class 2 (BMI 35 - 39.9) Serious obesity comorbidity presence: with serious comorbidity Body mass index: BMI 35.0-35.9 Mild major depression F32.0 Migraine without status migrainosus, not intractable, unspecified migraine type G43.909 Migraine type: unspecified Status migrainosus presence: without status migrainosus Intractability: not intractable Fibromyalgia M79.7 Time Spent (min) 22
== END 2024-07-03 17:59 | disposition home or self-care (01) ==
PROVIDERS: PCP Internal Medicine; Visit Provider Internal Medicine
DX: N63.13 Unspecified lump in the right breast, lower outer quadrant (principal); M79.672 Pain in left foot; M79.671 Pain in right foot; E66.01 Morbid (severe) obesity due to excess calories; Z68.35 Body mass index [BMI] 35.0-35.9, adult; F32.0 Major depressive disorder, single episode, mild; G43.909 Migraine, unspecified, not intractable, without status migrainosus; M79.7 Fibromyalgia

== ENCOUNTER → 2024-07-03 17:23 | Outpatient (BNVA) | payer OTHER, SELFPAY | PROVIDERS: PCP Internal Medicine; Visit Provider Internal Medicine | DX: N63.13 Unspecified lump in the right breast, lower outer quadrant (principal); M79.672 Pain in left foot; M79.671 Pain in right foot; E66.01 Morbid (severe) obesity due to excess calories; Z68.35 Body mass index [BMI] 35.0-35.9, adult; F32.0 Major depressive disorder, single episode, mild; G43.909 Migraine, unspecified, not intractable, without status migrainosus; M79.7 Fibromyalgia; Z79.899 Other long term (current) drug therapy ==

== ENCOUNTER 2024-07-13 14:23 | Outpatient (REF) | payer OTHER, SELFPAY ==
--- NOTE | ~2024-07-13 | MM_ITS ---
EXAMINATION: MM DIAGNOSTIC DIGITAL BREAST TOMOSYNTHESIS, RIGHT US BREAST LIMITED, RIGHT MAMMOGRAPHY: CLINICAL INFORMATION: Patient complaining of pea-sized palpable lump right breast approximately 8:00 axis, marked by BB. Patient has history of benign excision of fibroadenoma upper outer right breast in 2022. COMPARISON: Mammography: 11/15/2023, 01/25/2023, 05/22/2022. TECHNIQUE: Digital right breast tomosynthesis is performed in both the craniocaudal and mediolateral oblique views along with computer-aided detection (CAD). Synthesized 2D images are generated from the tomosynthesis. In addition, 3-D spot magnification right CC and right MLO views x3 were also obtained of the site of palpable concern. FINDINGS: There are scattered areas of fibroglandular density (ACR BI-RADS breast composition Category b). Mild scarring noted in the upper outer quadrant from benign excision of fibroadenoma in 2022. There are no suspicious masses, suspicious grouped calcifications, or developing areas of architectural distortion in the right breast. The parenchymal pattern is stable from prior exams. There is no skin or axillary abnormality. Area of palpable concern marked by the patient with a BB marker shows no underlying abnormality. ULTRASOUND: CLINICAL INFORMATION: As above. COMPARISON: None TECHNIQUE: Targeted sonographic evaluation right breast was performed using a high frequency linear transducer. Attention was given to the 8:00 axis in the region of palpable concern. Selected archived documentation. FINDINGS: RIGHT BREAST: There is a mixture of fatty and fibroglandular tissue. No suspicious mass is seen. There is no pathologic acoustic shadowing. No cystic abnormality. No correlate to the palpable focus of concern at the 8:00 axis. MM/MM tomosynthesis diagnostic RT IMPRESSION: -There are no findings right breast suspicious for malignancy. -No mammographic or sonographic abnormality to correlate with the 8:00 axis of palpable concern. Recommend clinical management and follow-up. Otherwise, recommend returning to routine annual screening mammography. OVERALL ASSESSMENT: Mammography: BI-RADS 2 - Benign Findings Ultrasound: BI-RADS 2 - Benign Findings RECOMMENDATION: 1. Patient should be managed based on the clinical impression. 2. Otherwise, routine annual screening mammography. This patient's information was entered into a reminder system with a target due date for their next mammogram. Electronically signed by: Eugenio Peck MD 07/13/2024 03:17 PM EDT RP
== END 2024-07-13 14:24 | disposition home or self-care (01) ==
LOC: HO.MAMMO 14:23
PROVIDERS: PCP Internal Medicine; Visit Provider Internal Medicine
DX: N63.13 Unspecified lump in the right breast, lower outer quadrant (principal)
CPT/HCPCS: 76642; 77061; 77065

== ENCOUNTER → 2024-07-13 15:00 | Outpatient (BNV) | payer OTHER, SELFPAY | PROVIDERS: PCP Internal Medicine; Visit Provider Radiology Diagnostic Radiology | DX: N63.13 Unspecified lump in the right breast, lower outer quadrant (principal) | CPT/HCPCS: 76642; 77061; 77065 ==

== ENCOUNTER 2024-07-18 14:30 | Outpatient (AMB) | payer OTHER, SELFPAY ==
--- NOTE | 2024-07-18 14:43 | MHC.OFFVIS ---
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 She was evaluated at the [facility] during that time in early April 2022. She was discharged in release. The patient was already on steroids and also antibiotics per she continued to using nebulizer and also has a rescue inhaler. However, she continued having coughing and chest tightness and wheezing. Moderate severity. No significant improvement until the last several days which she has actually noticed some decrease in her cough and chest tightness. She is reassured she is starting to get a little better. I do not have the ability to review the x-ray that she had at [facility] but apparently the patient states that she was told was normal. Her symptoms are usually worse at nighttime. She has a hard time sleeping because of the coughing. Her cough is now nonproductive where initially was productive in nature. She did not take any additional antimicrobial therapy. At this point will try to maximize her respiratory therapy and will request additional studies. If her symptoms do not improve then will go ahead and get allergy testing and additional blood work. 08/10/2022 the patient is here for a pulmonary follow-up visit. She feels about the same. She is having episodes of shortness of breath with activity. Moderate severity. The Symbicort inhaler was not very helpful. She did undergo pulmonary function studies. We did personally review them together. Appears that she has a mild restrictive ventilatory defect. Although no obstruction and a normal diffusing capacity. She was supposed to have a chest x-ray but she has not had as of yet. Therefore will have her undergo a chest x-ray. If her symptoms persist and no clear etiology on the x-ray would consider rate CT scan of the chest to assess for any restrictive lung disease conditions such as interstitial lung disease. In addition to that the patient is having episodes of waking up short of breath and coughing. She wakes up from a sound sleep. The patient does have snoring history. He does wake up tired with an elevated [place] score of 12/24. Will have her undergo home sleep study at this time. 11/30/2022 the patient is here for pulmonary follow-up visit. She is having worsening symptoms. Complaining of shortness of breath and tachycardia. She is also having a worsening productive cough. She has been using the Symbicort with some benefit. However, more recently she has been using her nebulizer also her rescue inhaler on a daily basis because of her worsening cough. She is also noticing increasing heart rates and blood pressures. She has been getting headaches. We did go for brief walking oximetry and heart rate was up to 120. This will with minimal activity with dyspnea score of 5/10. Her pulse ox was normal. That being said she does not have a history of blood clots or leg swelling. She is not taking any hormonal replacement therapy at this time. will go ahead and have the patient undergo blood work including CBC, D-dimer among others. Patient should also have a chest x-ray done. The patient will start a course of antibiotics. She does not need any prednisone she does not have any wheezing. She is going to continue with respiratory therapy for now. 03/01/2023 the patient is here for pulmonary follow-up visit. The patient overall is feeling better. She has been using her inhalers with good effect. The patient went back to work now she is motivated. She still has issues with significant fatigue. She is working at [employer] and is hard for her to [place] 12 hours. She did request for letter. I explained to her that I can give her a simple letter stating the fact that she does see an cemetery counselor and does use inhalers otherwise if she needs additional paperwork she would after take it elsewhere. The patient has been complaining of productive cough lately. The cough is yellowish in color. She may be developing some degree of bronchitis. No evidence of any significant chest tightness or wheezing. Her cardiac status is a little more stable. 11/24/2023 the patient is here for a sick visit. Apparently she had a very tough couple months. She was sick back at the end of September and then all of October she was sick with cough congestion chest tightness and wheezing. She did call but she did not come in for an appointment. The patient continue to use her nebulizer several times a day. She continues to use home remedies. Ultimately she started feeling better. Now her respiratory status is back to her baseline. The patient has also been complaining of severe headaches. She went to the hospital with migraines. She was treated at [facility] for that. Currently she is still having ongoing migraine headaches. We did review her last home sleep study that she had back in 21 without any significant sleep apnea although she was hypoxic. The patient does have daytime drowsiness with an [place] score elevated at 11 over 24. Based on the fact that she has severe headaches ongoing daytime drowsiness and also increased cardiovascular risk factors I do believe we should repeat her home sleep study at this time. 07/18/2024 the patient is here for a pulmonary follow-up visit. Overall the patient is doing okay she does complaint of increasing chest tightness and shortness of breath. Before that she had a cough productive in nature. She had gotten some antibiotic and she was expectorating significant amount of phlegm. Although that is now clear. Now she just has some chest tightness and shortness of breath. On further questioning she has not been using inhalers. She did change pharmacy so therefore she has not been able to get it. She is going to go ahead and restart her Symbicort and will have a rescue inhaler. She is not having any significant wheezing at this time so I do not believe that she needs to be on any prednisone. If she gets worse if she is no better after starting her inhalers she can come in for an x-ray and also blood work. In addition to that the patient has been dealing with significant musculoskeletal discomfort. She does have a rheumatological appointment soon and she is also following closely with orthopedic surgery. 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 Hip pain Migraines Fibromyalgia Urticaria DISH (disseminated idiopathic skeletal hyperostosis) Anxiety Hiatal hernia GERD (gastroesophageal reflux disease) History of lupus Asthma Surgical History Status post right breast lumpectomy (01/25/23) History of surgery Hx of cholecystectomy Hx of arthroscopy of knee Hx of gastric bypass History of esophagogastroduodenoscopy (EGD) Family History Father CVD (cardiovascular disease), Onset Age: 65 Mother Hypertension Rheumatoid arthritis Lupus Maternal Grandmother CAD (coronary artery disease) Diabetes Maternal Grandfather CAD (coronary artery disease) Diabetes Family/Other FH: mental illness Mental health disorder Paternal Aunt No problems noted. Brother Diabetes Hypertension Social History Household Members: Family Housing: House Are you a primary medicare nurse to a significant other at home: No Do you presently have visiting nurse or other home services: No Alcohol intake: current Alcohol intake frequency: holidays/special occasions only Alcohol type: hard liquor Patient Tobacco Use Status: Never used Tobacco e-Cigarette/Vaping Use: Never Used Second Hand Smoke Exposure: No service: No Current occupational status: employed Current occupational exposures/hazards: No Cognitive needs: No Hearing needs: No Vision needs: Yes Review of Systems Const Reports daytime sleepiness, Reports headache(s) and Reports snoring Eyes Reports no additional complaints, Denies change in vision and Denies other visual disturbances ENT Reports headache(s) and Reports nasal congestion Card Denies chest pain at rest, Denies chest pain with activity, Denies edema, Denies irregular heart rhythm, Denies claudication, Denies dyspnea, Reports dyspnea on exertion, Denies orthopnea, Denies paroxysmal nocturnal dyspnea and Denies slow heart rate Resp Reports cough, Denies dyspnea, Reports dyspnea on exertion, Reports snoring and Reports wheezing GI Denies abdominal pain, Denies change in bowel habits, Denies excessive flatus, Denies nausea and Denies vomiting Musc Reports no additional complaints Skin/Breast Denies rash Neuro Reports no additional complaints and Reports headache(s) Aller/Immun Reports wheezing Physical Exam Vital Signs: Last Vital Signs Pulse 88 07/18/24 14:49 BP 128/78 07/18/24 14:49 Pulse Ox 97 07/18/24 14:49 Oxygen Delivery Method Room Air 07/18/24 14:49 BMI result Body Mass Index 35.1 Const General: no acute distress and well developed Orientation/consciousness: patient oriented x3 HEENT Head: Yes normal to inspection Mouth: Normal oral and palatal mucosa present Neck Neck: Yes supple Chest Chest palpation & inspection: normal inspection of the chest Resp Effort & Inspection: normal respiratory effort and able to speak in complete sentences Auscultation: no wheezes and diminished lung sounds Cardio Rate: regular rate Rhythm: regular rhythm Heart sounds: S1 normal heart sound present and S2 normal heart sound present Back/Spine/Pelvis Cervical Spine: No cervical muscular tenderness and No Cervical spine tenderness Thoracic/Lumbar Spine: thoracic and lumbar spine normal to inspection, thoraco-lumbar ROM normal, No paraspinal muscle tenderness, No thoracic spinal tenderness and lumbar spinal tenderness Sacroiliac joints: bilaterally tender to palpation Neuro General: patient oriented x3 Extrem General: Yes no clubbing, cyanosis or edema and Yes no pedal edema Psych Speech and movement: Clear speech present Attitude: cooperative Quality Reporting (2019) Adult ([facility] ) Smoking risk assessment performed?: Yes Patient Tobacco Use Status: Never used Tobacco Assessment & Plan Assessment & Plan (1) Asthma: Code(s): J45.909 - Unspecified asthma, uncomplicated Category: Medical Qualifiers: Asthma complication type: uncomplicated Asthma persistence: persistent Asthma severity: moderate Qualified Code(s): J45.40 - Moderate persistent asthma, uncomplicated (2) Tachycardia: Code(s): R00.0 - Tachycardia, unspecified Category: Medical (3) Dyspnea: Code(s): R06.00 - Dyspnea, unspecified Category: Medical Qualifiers: Dyspnea type: dyspnea on exertion Qualified Code(s): R06.09 - Other forms of dyspnea (4) Chronic restrictive lung disease: Code(s): J98.4 - Other disorders of lung Category: Medical (5) JAIME (obstructive sleep apnea): Comment: normal PSG Code(s): G47.33 - Obstructive sleep apnea (adult) (pediatric) Category: Medical Plan continue Symbicort Continue short-acting beta agonist as needed Tessalon Perles as needed for cough fluticasone nasal spray CXR bloodwork Follow-up in 6 months Orders: Orders Complete Blood Count Auto Diff Today J45.40 - Moderate persistent asthma, uncomplicated Basic Metabolic Panel Today J45.40 - Moderate persistent asthma, uncomplicated Immunoglobulin E Today J45.40 - Moderate persistent asthma, uncomplicated XR chest 2V Today J45.40 - Moderate persistent asthma, uncomplicated Erythrocyte Sedimentation Rate Today J45.40 - Moderate persistent asthma, uncomplicated Medications: New albuterol sulfate 90 mcg/actuation 2 inhalations inhalation Q6H PRN 18 grams 12RF shortness of breath or wheezing 30 days J44.9 - Chronic obstructive pulmonary disease, unspecified Refilled budesonide-formoterol 160-4.5 mcg/actuation (Symbicort) 2 puffs inhalation BID 10.2 grams 11RF 30 days J44.9 - Chronic obstructive pulmonary disease, unspecified Coding Level of Care Code Est Pt Level 4 (46871) Diagnoses Moderate persistent asthma without complication J45.40 Asthma complication type: uncomplicated Asthma persistence: persistent Asthma severity: moderate Tachycardia R00.0 Dyspnea on exertion R06.09 Dyspnea type: dyspnea on exertion Chronic restrictive lung disease J98.4 JAIME (obstructive sleep apnea) G47.33 Time Spent (min) 16
[2024-07-18 14:49] VITALS: BP 128/78; PULSE 88; O2SAT 97; BMI 35.1
== END 2024-07-18 15:08 | disposition home or self-care (01) ==
PROVIDERS: PCP Internal Medicine; Visit Provider Hospitalist
DX: J45.40 Moderate persistent asthma, uncomplicated (principal); R00.0 Tachycardia, unspecified; R06.09 Other forms of dyspnea; J98.4 Other disorders of lung; G47.33 Obstructive sleep apnea (adult) (pediatric)
CPT/HCPCS: 99214

== ENCOUNTER → 2024-07-18 14:30 | Outpatient (BNVA) | payer OTHER, SELFPAY | PROVIDERS: PCP Internal Medicine; Visit Provider Hospitalist ==

== ENCOUNTER 2024-09-19 13:20 | Outpatient (AMB) | payer OTHER, SELFPAY ==
[2024-09-19 13:21] VITALS: BP 132/94; BMI 35.1
--- NOTE | 2024-09-19 13:21 | A.OFFVIS_ITS ---
Vital Signs 09/19/24 13:21 Height 5 ft 3 in Weight 197 lb 15.602 oz BMI 35.1 BP 132/94 H Blood Pressure Location Rt brachial Position Sitting Intake Visit Reasons: 1 yr f/u FM/cm Intake Note: Patient presents for 1 year follow up on fibromyalgia. 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 Accompanied by: Self / Same As Patient Allergies ondansetron Adverse Reaction (Intermediate, Verified 09/19/24 13:26) agitation sumatriptan [SUMATRIPTAN] Adverse Reaction (Intermediate, Verified 09/19/24 13:26) PALPITATIONS Medication List - Last Reconciled 09/19/24 by Kinjal Mejia MD albuterol sulfate 2.5 mg (3 mL) inhalation Q4-6H PRN albuterol sulfate 90 mcg/actuation 2 inhalations inhalation Q6H PRN 30 days alcohol swabs (Alcohol Prep Pads) topically 2 times a day; blood sugar diagnostic (FreeStyle Lite Strips) USE DIRECTED 2 TIMES A DAY blood-glucose meter (FreeStyle Lite Meter kit) Twice a day budesonide-formoterol 160-4.5 mcg/actuation (Symbicort) 2 puffs inhalation BID 30 days cyclobenzaprine 10 mg PO DAILY fluticasone propionate 50 mcg/actuation 2 sprays intranasal DAILY ipratropium-albuterol 20-100 mcg/actuation (Combivent Respimat) 1 puff inhalation Q6H 30 days lancets (FreeStyle Lancets) To times a day lansoprazole 30 mg PO DAILY 90 days nabumetone 750 mg PO BID nebulizers As directed rimegepant (Nurtec ODT) 75 mg PO DAILY sucralfate (Carafate) 10 mL PO BID 30 days tramadol 100 mg (2 x 50 mg) PO Q6H PRN 30 days Ventolin HFA 90 mcg/actuation (albuterol sulfate) 2 puffs inhalation Q6H PRN 30 days NS HPI Comments Details: Patient is a 44-year-old female with mild persistent asthma, status post gastric bypass complicated by recurrent hypoglycemia currently undergoing workup, fibromyalgia, DISH who presents for follow-up Interval History: Patient last seen 01/27/2022 with Morena Barney. At that time she was referred to pain management for assistance with managing her lumbar pain from dish. Also recommended physical therapy for her fibromyalgia Today patient is here for follow up. She continues to complain of whole-body pain. When asked her what part hurts her the most she is unable to really pinpoint but reluctantly said her back. 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 Has poor sleep Is chronically fatigued Looking for help with managing her pain Rheumatologic History: Currently being managed for fibromyalgia Stopped pregabalin and duloxetine because she says they were ineffective Gabapentin also ineffective Current Rheumatology Medication(s): Nabumetone 750 mg twice a day Cyclobenzaprine Tramadol [facility] Medical History (Updated 09/19/24 @ 13:26 by CIRILO Jones) History of trigger finger COVID-19 History of COVID-19 Tachycardia Dyspnea Chronic restrictive lung disease JAIME (obstructive sleep apnea) Reactive hypoglycemia Hypoglycemia Syncope 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 Hip pain Migraines Fibromyalgia Urticaria DISH (disseminated idiopathic skeletal hyperostosis) Anxiety Hiatal hernia GERD (gastroesophageal reflux disease) History of lupus Asthma Surgical History Status post right breast lumpectomy (01/25/23) History of surgery Hx of cholecystectomy Hx of arthroscopy of knee Hx of gastric bypass History of esophagogastroduodenoscopy (EGD) Family History Father CVD (cardiovascular disease), Onset Age: 65 Mother Hypertension Rheumatoid arthritis Lupus Maternal Grandmother CAD (coronary artery disease) Diabetes Maternal Grandfather CAD (coronary artery disease) Diabetes Family/Other FH: mental illness Mental health disorder Paternal Aunt No problems noted. Brother Diabetes Hypertension Social History Household Members: Family Housing: House Are you a primary customer care consultant to a significant other at home: No Do you presently have visiting nurse or other home services: No Alcohol intake: current Alcohol intake frequency: holidays/special occasions only Alcohol type: hard liquor Patient Tobacco Use Status: Never used Tobacco e-Cigarette/Vaping Use: Never Used Second Hand Smoke Exposure: No service: No Current occupational status: employed Current occupational exposures/hazards: No Cognitive needs: No Hearing needs: No Vision needs: Yes Review of Systems Const Details: Review of Systems Constitutional: Denies fever, chills, weight loss ENT: Denies vision changes, eye pain or eye redness, dental caries, dry mouth GI: Denies nausea, vomiting, diarrhea, abdominal pain, change in BM Pulm: Denies SOB, CAPPS, hemoptysis, wheezing Cards: Denies chest pain, palpitations Skin: Denies Raynaud's, rash, nail changes, photosensitivity, FUR NAILER: Denies headaches, weakness, paresthesias, recurrent falls MSK: as per HPI All other systems reviewed and are unremarkable except noted above Physical Exam Vital Signs: Last Vital Signs BP 132/94 H 09/19/24 13:21 BMI result Body Mass Index 35.1 Physical Examination CONSTITUITIONAL Patient alert and cooperative. Well appearing and in no apparent painful distress HEENT Conjunctiva and sclera clear. ?Pupils equal round and reactive to light. ?No lymphadenopathy. CHEST/RESPIRATORY SYSTEM Normal respiratory effort and able to speak in complete sentences. ?Clear to auscultation bilaterally. ?No crackles, rales, rhonchi, wheezes heard. CARDIAC SYSTEM Regular rate and rhythm. ?S1 and S2 heard no murmurs. 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 ?No deformities noted. ?No synovitis noted to the MCPs, PIPs or DIPs. ?No tenderness to palpation of these joints. Wrists: ?Full range of motion at the wrists without pain. ?No tenderness to palpation or synovitis noted to the wrists. Elbows: Full range of motion without pain. No tenderness, weakness, swelling, increased warmth or erythema. Shoulders: Decreased active range of motion. Normal passive range of motion. Hips: Full range of motion without pain. Hip bursa: Bilateral tenderness to palpation Knees: ?Full range of motion. ?No tenderness, swelling, increased warmth or erythema.?No effusion or crepitations Tender points:??Tenderness to palpation of the neck, shoulders, chest, elbows, hips, buttocks or knees. SKIN Skin intact without rashes. Quality Reporting (2019) Adult ([facility] 138/12/09/68) Smoking risk assessment performed?: Yes Patient Tobacco Use Status: Never used Tobacco Results Reviewed Results Reviewed: Laboratory Tests 06/11/06/19 01/05/24 14:40 08:35 08:50 WBC RBC Hgb Hct Plt Count Sodium 140 Potassium 4.3 Chloride 105 Carbon Dioxide 29 BUN 15 Creatinine 0.66 Rheumatoid Factor < 15.0 Cycl Citrul Peptide IgG <16 ALAN Screen Negative 05/24/24 13:06 WBC 3.4 L RBC 4.27 Hgb 13.2 Hct 40.9 Plt Count 196 Sodium Potassium Chloride Carbon Dioxide BUN Creatinine Rheumatoid Factor Cycl Citrul Peptide IgG ALAN Screen Assessment & Plan Assessment & Plan (1) Fibromyalgia: Code(s): M79.7 - Fibromyalgia Category: Medical Plan: #Fibromyalgia Patient has polyarthralgias are consistent with fibromyalgia. This is such a difficult disease to treat. She has tried gabapentin, pregabalin, duloxetine with no improvement. Currently tramadol, cyclobenzaprine and nabumetone provide some relief for her. We will trial milnacipran. Gave pamphlet on fibromyalgia and encouraged stretching. Return to clinic in 4 months Plan I spent 30 minutes reviewing the record and labs, seeing the patient, discussing the treatment plan and documenting in the medical record ? Medications: New milnacipran Start by taking 1 tablet at night for two weeks then increase to 1 tablet twice a day. 25 mg PO BID 90 tabs 1RF M79.7 - Fibromyalgia Discontinued ferrous sulfate Discontinued Reason: Patient no longer taking 325 mg PO BID 90 days 180 tabs 2RF pregabalin Discontinued Reason: Patient no longer taking 75 mg PO BEDTIME 30 days 30 caps 0RF duloxetine Discontinued Reason: Patient no longer taking 60 mg PO DAILY 90 caps 1RF ziirnadumz-aolojjjiqonft-ncze 50-325-40 mg Discontinued Reason: Patient no longer taking 1 tab PO DAILY PRN 3 tabs 0RF Migraine Headache G43.909 - Migraine, unspecified, not intractable, without status migrainosus topiramate Discontinued Reason: Patient no longer taking 25 mg PO BEDTIME 30 days 30 tabs 0RF metoclopramide HCl Discontinued Reason: Patient no longer taking 10 mg PO BID 30 days PRN 60 tabs 0RF nausea and vomiting semaglutide (weight loss) (Wegovy) administer weeks 1 through 4 of therapy Discontinued Reason: Patient no longer taking 0.25 mg (0.5 mL) subcut QWEEK 4 weeks 2 mL 0RF E66.9 - Obesity, unspecified Coding Level of Care Code Est Pt Level 4 (87180) Diagnoses Fibromyalgia M79.7
--- OUTSIDE RECORDS SUMMARY | 2024-09-26 14:23 | XMS_ITS | Continuity of Care Document ---
Author Organization [facility] Address [address] [place] [address] Dr Sharif [address] [place] [address] Phone Care Team Providers Care Student Officer Name Role Phone Justin NAPIER, RVT, RPVI, Emmanuel Unavailable U navailable Allergies, Adverse Reactions, Alerts Substance Reaction Status Criticality sumatriptan Active No Information Procedures Procedure Date Office/Outpt E&M Established 15 Mins- CT & [place] Office/Outpt E&M Established 15 Mins- CT & [place] Duplex Scan-extrem Veins; Uni/ CT & [place] J Duplex Scan-extrem Veins; Uni/ CT & [place] M Endovenous Laser, 1st Vein Endovenous Rf, 1st Vein Inj Scleros Solut; Mx Veins 1 4 Ultrason Guidan Needle Bx-rad 4 Office/Oupt E&M New Pt 45 Mins Duplex Scan-extrem Veins; Comp Advance Directives Directive Yes / No Effective Date File Name No Information Encounters Encounter Description Practice Location Reason(s) For Visit Diagnoses Date Provider Providers Copied on Encounter Office/Outpt E&M Established 15 Mins- [place] & [place] [facility], [address] [place] [address] Dr Sharif [address], [id number], [place] tel:[phone] [place] Localized edemaCramp and spasmRestless legs syndromePruri tus, unspecified 4 Justin NAPIER RVT, RAJAT Benitez. [address] [facility], [address], [place], [place], [id number] , [place]. tel:[phone] Referring Provider: Muriel Rebolledo MD, [address] [facility] , [address] [place] D/B/A: [place], [address]. tel:[phone] Office/Outpt E&M Established 15 Mins- CT & [place] [facility], [address] [place] [address] [address] [place]y [place], [id number], [place] tel:[phone] [facility] Chronic venous hypertension (idiopathic) without complications of bilateral lower extremityPrur itus, unspecified 4 Justin NAPIER RVT, RAJAT Benitez. [address] [facility], [address], [place], [place], [id number] , [place]. [phone] Referring Provider: Muriel Rebolledo MD, [address] [facility] , [address] [place] D/B/A: [place], [address]. tel:[phone] [place] [facility], [address] [place] [address] [address] [place]y Goodwin [place], [id number], [place] tel:[phone] CVR - [facility] Chronic venous hypertension (idiopathic) with other complications of left lower extremity 4 Justin NAPIER RVT, RAJAT Benitez. [address] [facility], [address], [place], [place], [id number] , [place]. [phone] Referring Provider: Muriel Rebolledo MD, [address] [facility] , [address] [place] D/B/A: [place], [address]. tel:[phone] [facility], [address] [place] [address] [address] [place]y Goodwin [place], [id number], [place] tel:[phone] [place] Encounter for follow-up examination after completed treatment for conditions other than malignant nePain in left leg 4 Justin NAPIER RVT, RAJAT Benitez. [address] [facility], [address], [facility], [place], [id number] , [place]. tel: [phone] Referring Provider: Muriel Rebolledo MD, [address] [facility] [address], [address] [place] D/B/A: [place], [address]. tel:[phone] [facility], [address] [place] [address] [address], [id number], [place] tel:[phone] [place] Chronic venous hypertension (idiopathic) with inflammation of left lower extremity 4 Justin NAPIER RVT, RAJAT Benitez. [address] [facility], [address], [facility], [place], [id number] , [place]. tel: [phone] Referring Provider: Muriel Rebolledo MD, [address] [facility] [address], [address] [place] [address] D/B/A: [place], [address]. tel:[phone] [facility], [address] [place] [address] [address] [place]y Goodwin [place], [id number], [place] tel:[phone] [place] Varicose veins of left lower extremity with other complications 4 Justin NAPIER RVT, RPVI Robert. [address] [facility], [address], [facility], [place], [id number] , [place]. tel:[phone] Referring Provider: Muriel Rebolledo MD, [address] [facility] [address], [address] [place] [address] D/B/A: [place], [address]. tel:[phone] [facility], [address] [place] [address] [address], [id number], [place] tel:[phone] [place] No Information 4 Justin NAPIER RVT, RPVI Robert. [address] [facility], [address], [facility] [place], [id number] , [place]. tel:[phone] Office/Oupt E&M New Pt 45 Mins [facility], [address] [place] [address] [address], [id number], [place] tel:[phone] [facility] Chronic venous hypertension (idiopathic) without complications of bilateral lower extremityPain in right lower legPain in left lower legPain in right legRestless legs syndromePruri tus, unspecifiedPa in in left legCramp and spasmLocalize d edema 4 Justin NAPIER RVT, RAJAT Benitez. [address] [place] [address], [place] [address], [place], [place], [id number] , [place]. tel:[phone] Referring Provider: Muriel Rebolledo MD, [address] [facility] , [address] [place] [address] D/B/A: [place], [address]. tel:[phone] [facility], [address] [place] [address] [address], [id number], [place] tel:[phone] CVR - [facility] Chronic venous hypertension (idiopathic) with other complications of bilateral lower extremity 4 Justin NAPIER RVT, RAJAT Benitez. [address] [place] [address], [place], [place], [id number] , [place]. tel:[phone] Referring Provider: Muriel Rebolledo MD, [address] [place] [address] , [address] [place] [address] D/B/A: [place], [address]. tel:[phone] Family History Family Member Type Diagnosis Age At Onset No Information Payers Payer name Insurance type Covered green party ID Authorodella yelitza(s) [facility] [id number] Social History Type Description Quantity Date Captured Comments Alcohol Use Details Unknown Caffeine Use Details Unknown Tobacco Use Status Current non-smoker Smoking Status Never Smoker Non-Smoking Tobacco Use Details : No Details Available : No Details Available Sex Female Vital Signs Date / Time: Height Weight BMI Pulse Rate Blood Pressure Temperature Respiratory Rate Body Surface Area Head Circumference Head Circ. Percentile Wt./Ramos. Percentile BMI percentile Pulse Ox Inhaled Ox 89.810 kg (198.00 lbs) 35.1 3 kg/m eter (2) 138/86 mm[Hg] Chief Complaint And Reason For Visit No Information Reason For Referral Reason For Referral No Information Plan Of Treatment Date Type [...] Body mass index (BMI) 35.0-35.9, adult) ordered Appointment Tonie Fischer (Josse pproved) BOOKED Appointment Tonie Fischer OKED Appointment Tonie Fischer OKED Appointment Tonie Fischer OKED Appointment Tonie Fischer OKED History Of Present Illness Encounter Date Complaint History Of Prese nt Illness No Information Functional Status Date Functional Assessmen t No Information Instructions Date Instruction Additional Infor santiago Diet education Related to Body mass index (BMI) 35.0-35.9, adult Giving Encouragement to exercise Related to Body mass index (BMI) 35.0-35.9, adult Lifestyle education Related to B rebecca mass index (BMI) 35.0-35.9, adult Pre and post instruc tions reviewed and provided Related to Localized edema Compression stocking usage as conservative measure Related to Localized edema Diet education Related to Body mass index (BMI) 35.0-35.9, adult Giving Encouragement to exercise Related to Body mass index (BMI) 35.0-35.9, adult Lifestyle education Related to B rebecca mass index (BMI) 35.0-35.9, adult Patient education booklet given Related to Chronic venous hypertension (idiopathic) without complications of bilateral lower extremity Pre and post instruc tions reviewed and provided Related to Chronic venous hypertension (idiopathic) without complications of bilateral lower extremity Diet education Related to Body mass index (BMI) 35.0-35.9, adult Giving Encouragement to exercise Related to Body mass index (BMI) 35.0-35.9, adult Patient education booklet given Related to Chronic venous hypertension (idiopathic) without complications of bilateral lower extremity Pre and post instruc tions reviewed and provided Related to Chronic venous hypertension (idiopathic) without complications of bilateral lower extremity Lifestyle education Related to B rebecca mass index (BMI) 35.0-35.9, adult Assessments Type Assessment Date No Information Patient Care Teams Name Effective Dates (start - stop) Status Members No Information
== END 2024-09-19 14:03 | disposition home or self-care (01) ==
PROVIDERS: PCP Internal Medicine; Visit Provider Student in an Organized Health Care Education/Training Program
DX: M79.7 Fibromyalgia (principal)
CPT/HCPCS: 99214

== ENCOUNTER → 2024-09-19 13:20 | Outpatient (BNVA) | payer OTHER, SELFPAY | PROVIDERS: PCP Internal Medicine; Visit Provider Student in an Organized Health Care Education/Training Program ==

== ENCOUNTER 2024-09-21 11:43 | Outpatient (AMB) | payer OTHER, SELFPAY ==
[2024-09-21 11:53] VITALS: BMI 34.9
--- NOTE | 2024-09-21 11:53 | A.OFFVIS_ITS ---
Vital Signs 09/21/24 11:53 Height 5 ft 3 in Weight 197 lb BMI 34.9 Intake Visit Reasons: OV - Right Knee OA - Last Inj 06/23/24 Intake Note: Tonie is a 44 year old female who presents today for a follow up of her right knee OA. Hx of fibromyalgia. History of right knee 2016. Last injection was administered 06/23/24. States she is doing great and will wait a little longer to repeat injection. Allergies ondansetron Adverse Reaction (Intermediate, Verified 09/19/24 13:26) agitation sumatriptan [SUMATRIPTAN] Adverse Reaction (Intermediate, Verified 09/19/24 13:26) PALPITATIONS HPI HPI OV - Right Knee OA - Last Inj 06/23/24: Details: Tonie is a 44 year old female who presents today for a follow up of her right knee OA. Hx of fibromyalgia. History of right knee 2017. Last injection was administered 06/23/24. States she is doing great and will wait a little longer to repeat injection. 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 Hip pain Migraines Fibromyalgia Urticaria DISH (disseminated idiopathic skeletal hyperostosis) Anxiety Hiatal hernia GERD (gastroesophageal reflux disease) History of lupus Asthma Surgical History Status post right breast lumpectomy (01/25/23) History of surgery Hx of cholecystectomy Hx of arthroscopy of knee Hx of gastric bypass History of esophagogastroduodenoscopy (EGD) Family History Father CVD (cardiovascular disease), Onset Age: 65 Mother Hypertension Rheumatoid arthritis Lupus Maternal Grandmother CAD (coronary artery disease) Diabetes Maternal Grandfather CAD (coronary artery disease) Diabetes Family/Other FH: mental illness Mental health disorder Paternal Aunt No problems noted. Brother Diabetes Hypertension Social History Household Members: Family Housing: House Are you a primary transitional care nurse to a significant other at home: No Do you presently have visiting nurse or other home services: No Alcohol intake: current Alcohol intake frequency: holidays/special occasions only Alcohol type: hard liquor Patient Tobacco Use Status: Never used Tobacco e-Cigarette/Vaping Use: Never Used Second Hand Smoke Exposure: No service: No Current occupational status: employed Current occupational exposures/hazards: No Cognitive needs: No Hearing needs: No Vision needs: Yes Physical Exam Vital Signs: BMI result Body Mass Index 34.9 Extrem Other: Minimal right knee effusion with tenderness to palpation along the medial joint line. Negative Marshal's. Quality Reporting (2019) Adult ([facility] ) Smoking risk assessment performed?: Yes Patient Tobacco Use Status: Never used Tobacco Assessment & Plan Assessment & Plan (1) Osteoarthritis of right knee: Code(s): M17.11 - Unilateral primary osteoarthritis, right knee Category: Medical Plan: This is a 44-year-old woman with fibromyalgia, polyarthralgia and history of musculoskeletal complaints who has doing well status post knee injection. No additional intervention warranted at this time. She may follow up as needed for injections. Coding Level of Care Code Est Pt Level 3 (59995) Diagnoses Osteoarthritis of right knee M17.11
--- OUTSIDE RECORDS SUMMARY | 2024-09-27 02:03 | XMS_ITS | Continuity of Care Document ---
Author Organization [facility] Address [address] [place] [address] Dr Sharif [address] [place] [phone] Phone Care Team Providers Care Sensitizer Name Role Phone Justin NAPIER, RVT, RPVI, [...] Mins- [place] & [place] [facility], [address] [place] [address] Dr Sharif 1000[address] 1000[place], [id number], [place] tel:[phone] [place] - [place] Localized edemaCramp and spasmRestless legs syndromePruri tus, unspecified 4 Justin NAPIER RVT, RAJAT Benitez. [address] [facility], [address], [place], [place], [id number] , [place]. tel:[phone] Referring Provider: Muriel Rebolledo MD, [address] [facility] , [address] [place] D/B/A: [place], [address]. tel:[phone] Office/Outpt E&M Established 15 Mins- [place] & [place] [facility] [place] [facility], [address] [place] [address] [address] [place]y Goodwin [place], [id number], [place] tel:[phone] [place] Chronic venous hypertension (idiopathic) without complications of bilateral lower extremityPrur itus, unspecified 4 Justin NAPIER RVT, RAJAT Benitez. [address] [facility], [address], [place], [place], [id number] , [place]. [phone] Referring Provider: Muriel Rebolledo MD, [address] [facility] , [address] [place] D/B/A: [place], [address]. tel:[phone] [place] [facility] [place] [facility], [address] [place] [address] [address] [place] Goodwin [place], [id number], [place] tel:[phone] CVR - [facility] Chronic venous hypertension (idiopathic) with other complications of left lower extremity 4 Justin NAPIER RVT, RAJAT Benitez. [address] [facility], [address], [place], [place], [id number] , [place]. [phone] Referring Provider: Muriel Rebolledo MD, [address] [facility] , [address] [place] D/B/A: [place], [address]. tel:[phone] [facility] [place] [facility], [address] [place] [address] [address] [place]y [place]win [place], [id number], [place] tel:[phone] [place] Encounter for follow-up examination after completed treatment for conditions other than malignant nePain in left leg 4 Justin NAPIER RVT, RAJAT Benitez. [address] [facility], [address], [facility], [place], [id number] , [place]. tel: [phone] Referring Provider: Muriel Rebolledo MD, [address] [facility] [address], [address] [place] D/B/A: [facility] [place], [address]. tel:[phone] [facility] [place] [facility], [address] [place] [address] [address]y [place], [id number], [place] tel:[phone] [place] Chronic venous hypertension (idiopathic) with inflammation of left lower extremity 4 Justin NAIPER RVT, RAJAT Benitez. [address] [facility], [address], [facility], [place], [id number] , [place]. tel: [phone] Referring Provider: Muriel Rebolledo MD, [address] [facility] [address], [address] [place] [address] D/B/A: [facility] [place], [address]. tel:[phone] [facility] [place] [facility], [address] [place] [address] [address] [place]y [place]win [place], [id number], [place] tel:[phone] [place] Varicose veins of left lower extremity with other complications 4 Justin NAPIER RVT, RPVI Robert. [address] [facility], [address], [facility], [place], [id number] , [place]. tel:[phone] Referring Provider: Muriel Rebolledo MD, [address] [facility] [address], [address] [place] [address] D/B/A: [facility] [place], [address]. tel:[phone] [facility] [place] [facility], [address] [place] [address] [address], [id number], [place] tel:[phone] [place] - [place] No Information 4 Justin NAPIER RVT, RPVI Robert. [address] [facility], [address], [facility] [place], [id number] , [place]. tel:[phone] Office/Oupt E&M New Pt 45 Mins [facility] [place] [facility], [address] [place] [address] [address], [id number], [place] tel:[phone] [facility] - [place] Chronic venous hypertension (idiopathic) without complications of bilateral lower extremityPain in right lower legPain in left lower legPain in right legRestless legs syndromePruri tus, unspecifiedPa in in left legCramp and spasmLocalize d edema 4 Justin NAPIER RVT, RAJAT Benitez. [address] [place] [address], [place] [address], [place], [place], [id number] , [place]. tel:[phone] Referring Provider: Muriel Rebolledo MD, [address] [facility] , [address] [place] [address] D/B/A: [place], [address]. tel:[phone] [facility] [place] [facility], [address] [place] [address] [address]y [place], [id number], [place] tel:[phone] CVR - [facility] Chronic venous hypertension (idiopathic) with other complications of bilateral lower extremity 4 Justin NAPIER RVT, RAJAT Benitez. [address] [place] [address], [place], [place], [id number] , [place]. tel:[phone] Referring Provider: Muriel Rebolledo MD, [address] [place] [address] , [address] [place] [address] D/B/A: [place], [address]. tel:[phone] Family History Family Member Type Diagnosis Age At Onset No Information Payers Payer name Insurance type Covered republican ID Authorodella yelitza(s) [facility] [id number] Social History Type Description Quantity Date Captured [...]
== END 2024-09-21 11:54 | disposition home or self-care (01) ==
PROVIDERS: PCP Internal Medicine; Visit Provider Orthopaedic Surgery
DX: M17.11 Unilateral primary osteoarthritis, right knee (principal)
CPT/HCPCS: 99213

== ENCOUNTER 2024-10-05 07:22 | Outpatient (AMB) | payer OTHER, SELFPAY ==
--- NOTE | 2024-10-05 07:37 | MHC.PC.OV ---
Vital Signs 10/05/24 07:39 Height 5 ft 3 in Weight 195 lb BMI 34.5 BP 146/82 H Blood Pressure Location Lt brachial Position Sitting Intake Visit Reasons: Annual Exam Intake Note: Patient here for an annual physical exam Child Life Assistant Required: No Accompanied by: Self / Same As Patient Allergies ondansetron Adverse Reaction (Intermediate, Verified 10/05/24 07:53) agitation sumatriptan [SUMATRIPTAN] Adverse Reaction (Intermediate, Verified 10/05/24 07:53) PALPITATIONS Medication List - Last Reconciled 10/05/24 by Muriel Julian MD albuterol sulfate 2.5 mg (3 mL) inhalation Q4-6H PRN albuterol sulfate 90 mcg/actuation 2 inhalations inhalation Q6H PRN 30 days alcohol swabs (Alcohol Prep Pads) topically 2 times a day; blood sugar diagnostic (FreeStyle Lite Strips) USE DIRECTED 2 TIMES A DAY blood-glucose meter (FreeStyle Lite Meter kit) Twice a day budesonide-formoterol 160-4.5 mcg/actuation (Symbicort) 2 puffs inhalation BID 30 days cyclobenzaprine 10 mg PO DAILY fluticasone propionate 50 mcg/actuation 2 sprays intranasal DAILY ipratropium-albuterol 20-100 mcg/actuation (Combivent Respimat) 1 puff inhalation Q6H 30 days lancets (FreeStyle Lancets) To times a day lansoprazole 30 mg PO DAILY 90 days milnacipran 25 mg PO BID nabumetone 750 mg PO BID nebulizers As directed rimegepant (Nurtec ODT) 75 mg PO DAILY sucralfate (Carafate) 10 mL PO BID 30 days tramadol 100 mg (2 x 50 mg) PO Q6H PRN 30 days Ventolin HFA 90 mcg/actuation (albuterol sulfate) 2 puffs inhalation Q6H PRN 30 days NS Tobacco use date assessed: 01/05/24 Dental Screening Dental Screen Date: 10/05/24 Did you have a dental visit in the last 12 months?: No Did you have a dental problem in the last 6 months where you did not have access to dental care?: No Was dental information given to patient?: Patient has dentist HPI HPI Comments History of Present Illness Details The patient is a 44-year-old female presenting for her annual physical examination with a focus on the management of elevated blood pressure identified during the visit. The patient confirmed a history of essential hypertension without detailed discussion of duration or specific treatment regimens during the conversation. She reported benign findings from a recent mammography. The last cervical Pap smear was performed 3 years ago. The patient has known allergies to Ondansetron and Sumatriptan, experiencing headaches and palpitations, respectively, as adverse reactions. She uses albuterol as a rescue medication as required. She complaints of hair loss that started recently and I will order thyroid function test and refer her to Dermatology. She also complains of nasal congestion and a dry cough that started about a week ago. She said she had similar symptoms few months ago. She has non quantified fever and has a cold sore. I will test her for COVID, flu and RSV. She has class 1 obesity with a BMI of 34.5 and was advised to do diet and exercise to reach BMI goal less than 30. She also has mild major depression with a PHQ-9 of 8 and I will start her on amitriptyline at bedtime. - Recent mammography showed benign findings. - Recommended follow-up based on prior Pap smear results, to determine timing for next screening. - BMI classification discussed with acknowledgment of current status. - Advised to monitor blood pressure regularly due to history of hypertension. 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 Hip pain Migraines Fibromyalgia Urticaria DISH (disseminated idiopathic skeletal hyperostosis) Anxiety Hiatal hernia GERD (gastroesophageal reflux disease) History of lupus Asthma Surgical History Status post right breast lumpectomy (01/25/23) History of surgery Hx of cholecystectomy Hx of arthroscopy of knee Hx of gastric bypass History of esophagogastroduodenoscopy (EGD) Family History Father CVD (cardiovascular disease), Onset Age: 65 Mother Hypertension Rheumatoid arthritis Lupus Maternal Grandmother CAD (coronary artery disease) Diabetes Maternal Grandfather CAD (coronary artery disease) Diabetes Family/Other FH: mental illness Mental health disorder Paternal Aunt No problems noted. Brother Diabetes Hypertension Social History Household Members: Family Housing: House Are you a primary animal caretaker supervisor to a significant other at home: No Do you presently have visiting nurse or other home services: No Alcohol intake: current Alcohol intake frequency: holidays/special occasions only Alcohol type: hard liquor Patient Tobacco Use Status: Never used Tobacco e-Cigarette/Vaping Use: Never Used Second Hand Smoke Exposure: No service: No Current occupational status: employed Current occupational exposures/hazards: No Cognitive needs: No Hearing needs: No Vision needs: Yes Questionnaire PHQ-9 Over the last 2 weeks, how often have you been bothered by any of the following problems? 1. Little interest or pleasure in doing things: several days 2. Feeling down, depressed, or hopeless: more than half the days 3. Trouble falling or staying asleep, or sleeping too much: more than half the days 4. Feeling tired or having little energy: more than half the days 5. Poor appetite or overeating: several days 6. Feeling bad about yourself - or that you are a failure or have let yourself or your family down: not at all 7. Trouble concentrating on things, such as reading the newspaper or watching television: not at all 8. Moving or speaking so slowly that other people could have noticed. Or the opposite - being so fidgety or restless that you have been moving around a lot more than usual: not at all 9. Thoughts that you would be better off or of hurting yourself in some way: not at all Total score: 8 Depression Screening Interpretation: Positive Depression Screening Follow-up: Existing condition, New Medication prescribed and Follow-up Visit Requested Depression Screening Done: Yes 83814 - PHQ-9 Billing: Yes Source: Developed by Drs. Emmanuel Chatterjee, Krysten Matamoros, Cameron Hanley and colleagues, with an educational kaitlin from [employer]. Thrive Questionnaire Date Thrive assessed: 01/05/24 I am a: Patient What is your living situation today?: I have a steady place to live Within the past 12 months, did the food you bought not last and you didn't have the money to get more?: I choose not to answer this question Within the past 12 months, did you worry whether your food would run out before you got money to buy more?: I choose not to answer this question Do you have trouble paying for medicines?: I choose not to answer this question Do you have trouble getting transportation to medical appointments?: No Do you have trouble paying your heating and electricity bill?: No Do you have trouble taking care of your child, family member or friend?: No Do you have trouble with day-to-day activities such as bathing, preparing meals, shopping, managing finances, etc.?: I choose not to answer this question Are you interested in more education?: No Please select the resources that you would like help with: None Currently or been in a relationship where the following occur: I choose not to answer THRIVE Score: 0 AUDIT C Alcohol Use Questionnaire (AUDIT-C) 1. How often do you have a drink containing alcohol?: Monthly or less 2. How many drinks containing alcohol do you have on a typical day when you are drinking?: 1 or 2 3. How often do you have six or more drinks on one occasion?: Never Total Score: 1 Score Reviewed/Action Taken: No JOSEPHINE-7 AMB Questionnaire JOSEPHINE-7 Date JOSEPHINE - 7 assessed: 01/05/24 Feeling nervous, anxious, or on edge: 1 = Several days Not being able to stop or control worryin = Not at all Worrying too much about different things: 0 = Not at all Trouble relaxin = Not at all Being so restless that it is hard to sit still: 0 = Not at all Becoming easily annoyed or irritable: 0 = Not at all Feeling afraid as if something awful might happen: 0 = Not at all Total JOSEPHINE-7 score (0-4 normal; 5-9 mild; 10-14 moderate; 15-21 severe): 1 Source: Developed by Drs. Emmanuel Chatterjee, Krysten Matamoros, Cameron Hanley and colleagues, with an educational kaitlin from [employer] JOSEPHINE-7 Assessment Billing JOSEPHINE-7 Assessment Tool: JOSEPHINE-7 Assessment 31439 Review of Systems Const All systems reviewed & are unremarkable except as noted in HPI and below Reports fatigue and Reports fever(s) Card Denies chest pain at rest, Denies chest pain with activity, Denies edema, Denies irregular heart rhythm, Denies claudication, Denies dyspnea, Denies dyspnea on exertion, Denies orthopnea, Denies paroxysmal nocturnal dyspnea and Denies slow heart rate Resp Reports chest congestion, Reports cough, Denies dyspnea and Denies dyspnea on exertion GI Denies abdominal pain, Denies change in bowel habits, Denies excessive flatus, Denies nausea and Denies vomiting Denies urinary incontinence, Denies urinary hesitancy and Denies urinary urgency Musc Reports arthralgias Psych Reports abnormal sleep pattern and Reports depression Endo Reports fatigue Physical exam (Primary Care) Vital Signs: Last Vital Signs BP 146/82 H 10/05/24 07:39 BMI result Body Mass Index 34.5 BMI Assessment/Plan discussion: High BMI High, discussed plan: lifestyle, weight reduction, dietary and physical activity Tobacco/Smoking Status: Tobacco use Status Tobacco use date assessed 01/05/24 10/05/24 07:45 Patient Tobacco Use Status Never used Tobacco 10/05/24 07:45 e-Cigarette/Vaping Use Never Used 10/05/24 07:45 Depression Screening Interpretation: Positive Depression Screening Follow-up: Existing condition, New Medication prescribed and Follow-up Visit Requested Thrive Assessment: Date of Thrive Assessment Date Thrive assessed 01/05/24 10/05/24 07:45 Currently or been in a relationship where the following occur: I choose not to answer Const General: cooperative Nutritional Appearance: obese [facility] Head: Yes normal to inspection, Yes normocephalic and Yes atraumatic Ears: external ears normal General nose exam: Nasal discharge present Eyes General: appearance normal, both eyes and all related structures Eyelids: Yes eyelids normal Conjunctivae: conjunctivae normal Neck Neck: Yes normal visual inspection and Yes supple Resp Effort & Inspection: normal respiratory effort Auscultation: clear to auscultation bilaterally Cardio Jugular venous distension: no JVD Rate: regular rate Rhythm: regular rhythm Heart sounds: S1 normal heart sound present and S2 normal heart sound present GI Inspection: Yes normal to inspection Palpation (GI): Soft to palpation and nontender Auscultation: normal bowel sounds Skin General skin exam: no rashes or lesions noted Neuro General: no focal motor deficits Extrem General: Yes full ROM Psych Appearance: grossly normal Office Procedures Flu Questionnaire Does the patient have a severe egg allergy?: No Immunizations Fluarix Triv [id number] (PF) 45 mcg (15 mcg x 3)/0.5 mL IM syringe Performing Provider: Muriel Julian MD [place] [facility] [place] Documented (not given) by: CIRILO Duncan on 10/05/24 07:46 Reason Not Given: Patient Refused Coding Level of Care Code Est Pt Level 3 (37383) Est Pt Prev Care 40-64y(18120) Diagnoses Physical exam Z00.00 URI (upper respiratory infection) J06.9 Hair loss L65.9 Class 2 severe obesity due to excess calories with serious comorbidity and body mass index (BMI) of 35.0 to 35.9 in adult E66.01; Z68.35 Obesity type: due to excess calories Obesity classification: adult class 2 (BMI 35 - 39.9) Serious obesity comorbidity presence: with serious comorbidity Body mass index: BMI 35.0-35.9 Mild major depression F32.0 Additional Codes PHQ-9 - 41035 - PHQ-9 Billing: Yes ([id number]) JOSEPHINE-7 Assessment Billing - JOSEPHINE-7 Assessment Tool: JOSEPHINE-7 Assessment 23575 ([id number]) Time Spent (min) 34 Assessment & Plan Assessment & Plan (1) Physical exam: Code(s): Z00.00 - Encounter for general adult medical examination without abnormal findings Category: Medical (2) URI (upper respiratory infection): Code(s): J06.9 - Acute upper respiratory infection, unspecified Category: Medical (3) Hair loss: Code(s): L65.9 - Nonscarring hair loss, unspecified Category: Medical (4) Obese: Code(s): E66.9 - Obesity, unspecified Category: Medical Qualifiers: Obesity type: due to excess calories Obesity classification: adult class 2 (BMI 35 - 39.9) Serious obesity comorbidity presence: with serious comorbidity Body mass index: BMI 35.0-35.9 Qualified Code(s): E66.01 - Morbid (severe) obesity due to excess calories; Z68.35 - Body mass index [BMI] 35.0-35.9, adult (5) Mild major depression: Code(s): F32.0 - Major depressive disorder, single episode, mild Category: Medical Plan - Prescribed an antibiotic if required, to address upper respiratory issue noted above the lungs. - Recommended COVID-19, influenza, and RSV testing following the visit. - Discussed potential need for a new Pap smear depending on the previous test results. - referred to dermatology for hair loss. Patient was informed and verbally consented to the use of an ambient scribe for clinic note documentation during this visit. I discussed with the patient the importance of monitoring and managing her hypertension. We reviewed her need for regular blood pressure checks and maintaining a record of her readings. I informed her that the mammography results showed benign findings and emphasized the need for determining the last Pap smear results for appropriate follow-up. I addressed her medication allergies, explaining the risks associated with Ondansetron and Sumatriptan. Furthermore, I advised her regarding the use of the albuterol inhaler as needed and reviewed weight management in the context of her obesity. The pending upper respiratory issue was evaluated, and I recommended specific diagnostic tests to rule out COVID-19, flu, and RSV. Orders: Orders Influenza [id number] Immunization Today Z23 - Encounter for immunization Lipid Panel Today E78.5 - Hyperlipidemia, unspecified, Z00.00 - Encounter for general adult medical examination without abnormal findings SARS-CoV2/FLU/RSV Today R09.89 - Other specified symptoms and signs involving the circulatory and respiratory systems Comprehensive Met. Panel Today Z00.00 - Encounter for general adult medical examination without abnormal findings Complete Blood Count Auto Diff Today E66.9 - Obesity, unspecified Thyroid Stimulating Hormone Today L65.9 - Nonscarring hair loss, unspecified Referrals Dermatology Referral L65.9 - Nonscarring hair loss, unspecified Medications: New amitriptyline 10 mg PO BEDTIME 90 days 90 tabs 0RF azithromycin Take 2 tabs the first day, then 1 tab the next 4 days 250 mg PO DAILY 5 days 6 tabs 0RF J06.9 - Acute upper respiratory infection, unspecified Patient Instructions: - Continue monitoring blood pressure and maintain records. - Use albuterol inhaler as needed for respiratory symptoms. - Contact previous healthcare provider to verify last Pap smear results. - Complete COVID-19, flu, and RSV tests as instructed after leaving the clinic. - Follow weight management strategies discussed during the visit.
[2024-10-05 07:39] VITALS: BP 146/82; BMI 34.5
== END 2024-10-05 08:08 | disposition home or self-care (01) ==
PROVIDERS: PCP Internal Medicine; Visit Provider Internal Medicine
DX: Z00.00 Encounter for general adult medical examination without abnormal findings (principal); J06.9 Acute upper respiratory infection, unspecified; E66.01 Morbid (severe) obesity due to excess calories; F32.0 Major depressive disorder, single episode, mild; Z68.35 Body mass index [BMI] 35.0-35.9, adult; L65.9 Nonscarring hair loss, unspecified; Z23 Encounter for immunization

== ENCOUNTER 2024-10-05 07:22 | Outpatient (REF) | payer OTHER, SELFPAY ==
[2024-10-05 08:44] LABS: MANUAL DIFF FLAG NO
[2024-10-05 08:55] LABS: Basophils Percent Auto 1.1 % (0-2); Eosinophils Percent Auto 0.6 % (0-4); Hematocrit 41.6 % (37.0-47.0); Hemoglobin 13.4 g/dl (12.0-16.0); Imm Gran Abs Auto 0.01 X10*3/uL (0.00-0.03); Imm Gran Pct Auto 0.3 % (0.0-0.4); Lymphocytes Percent Auto 28.3 % (20-40); Mean Corpuscular HGB Conc 32.2 g/dl (31.0-35.0); Mean Corpuscular Hemoglobin 30.2 pg (27.0-33.0); Mean Corpuscular Volume 93.7 fL (80.0-98.0); Mean Platelet Volume 11.8 fL (9.4-12.3); Monocytes Absolute Auto 0.5 X10*3/uL (0.1-1.2); Monocytes Percent Auto 13.1 % (2-11); Neutrophils Percent Auto 56.6 % (45-73); Platelet Count 199 X10*3/uL (160-400); Red Blood Count 4.44 X10*6/uL (4.20-5.50); Red Cell Distribution Width 13.2 % (11.0-16.0); White Blood Count 3.5 X10*3/uL (4.8-10.8)
[2024-10-05 09:35] LABS: Erythrocyte Sedimentation Rate 21 MM/HR (0-20)
[2024-10-05 09:42] LABS: Alanine Aminotransferase 19 U/L (0-31); Alkaline Phosphatase 61 U/L (39-117); Anion Gap 12 (12-20); Aspartate Amino Transferase 21 U/L (5-31); Bilirubin Total 0.3 mg/dL (0.0-1.0); Blood Urea Nitrogen 13 mg/dL (9-16); Calcium 8.8 mg/dL (8.4-10.2); Carbon Dioxide 27 mmol/L (22-29); Chloride 107 mmol/L (96-108); Cholesterol 181 mg/dL (<200); Estimated Glomerular Filt Rate > 60; Glucose Random 93 mg/dL (60-115); HDL Cholesterol 71 mg/dL (>40); LDL Cholesterol Calculated 98 mg/dL (<100); Potassium 4.8 mmol/L (3.3-5.1); Sodium 141 mmol/L (135-145); Total Protein 7.7 g/dL (6.5-8.0); Triglycerides 63 mg/dL (<150)
[2024-10-05 09:57] LABS: Thyroid Stimulating Hormone 1.13 uIU/mL (0.32-4.0)
[2024-10-05 10:42] LABS: Influenza A PCR NEGATIVE (Negative); Influenza B PCR NEGATIVE (Negative); Resp Syncy Virus RNA Qual PCR NEGATIVE (Negative); SARS COV2 PCR INHOUSE NEGATIVE (Negative)
[2024-10-12 22:19] LABS: Immunoglobulin E 6 kU/L (<OR=114)
== END 2024-10-05 07:23 | disposition home or self-care (01) ==
LOC: HO.LAB 07:22
PROVIDERS: Hospitalist; PCP Internal Medicine; Visit Provider Internal Medicine
DX: Z00.00 Encounter for general adult medical examination without abnormal findings (principal); J06.9 Acute upper respiratory infection, unspecified; L65.9 Nonscarring hair loss, unspecified; E66.01 Morbid (severe) obesity due to excess calories; Z68.35 Body mass index [BMI] 35.0-35.9, adult; F32.0 Major depressive disorder, single episode, mild; Z28.21 Immunization not carried out because of patient refusal; E78.5 Hyperlipidemia, unspecified; R09.89 Other specified symptoms and signs involving the circulatory and respiratory systems
CPT/HCPCS: 0241U; 36415; 80053; 80061; 82785; 84443; 85025; 85652; 96127

== ENCOUNTER 2024-11-08 10:52 | Outpatient (AMB) | payer OTHER, SELFPAY ==
[2024-11-08 11:06] VITALS: BP 136/80; PULSE 90; TEMP 37.1; O2SAT 98; BMI 34.3
--- NOTE | 2024-11-08 11:06 | A.OFFPC_ITS ---
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: No Accompanied by: Self / Same As Patient Allergies ondansetron Adverse Reaction (Intermediate, Verified 11/08/24 11:38) agitation sumatriptan [SUMATRIPTAN] Adverse Reaction (Intermediate, Verified 11/08/24 11:38) PALPITATIONS Medication List - Last Reconciled 11/08/24 by ALETHA Lyn albuterol sulfate 2.5 mg (3 mL) inhalation Q4-6H PRN albuterol sulfate 90 mcg/actuation 2 inhalations inhalation Q6H PRN 30 days alcohol swabs (Alcohol Prep Pads) topically 2 times a day; amitriptyline 10 mg PO BEDTIME 90 days blood sugar diagnostic (FreeStyle Lite Strips) USE DIRECTED 2 TIMES A DAY blood-glucose meter (FreeStyle Lite Meter kit) Twice a day budesonide-formoterol 160-4.5 mcg/actuation (Symbicort) 2 puffs inhalation BID 30 days cyclobenzaprine 10 mg PO DAILY fluticasone propionate 50 mcg/actuation 2 sprays intranasal DAILY ipratropium-albuterol 20-100 mcg/actuation (Combivent Respimat) 1 puff inhalation Q6H 30 days lancets (FreeStyle Lancets) To times a day lansoprazole 30 mg PO DAILY 90 days milnacipran 25 mg PO BID nabumetone 750 mg PO BID nebulizers As directed rimegepant (Nurtec ODT) 75 mg PO DAILY sucralfate (Carafate) 10 mL PO BID 30 days tramadol 100 mg (2 x 50 mg) PO Q6H PRN 30 days Ventolin HFA 90 mcg/actuation (albuterol sulfate) 2 puffs inhalation Q6H PRN 30 days NS Tobacco use date assessed: 11/08/24 Dental Screening Dental Screen Date: 11/08/24 Did you have a dental visit in the last 12 months?: No Did you have a dental problem in the last 6 months where you did not have access to dental care?: No Was dental information given to patient?: No HPI [facility] 10/31 Abdominal Pain HPI Details The patient is a 44-year-old female that is presenting for follow-up post hospital visit She is a patient of Dr. Rebolledo and was last seen in the office on 10/05/24 PMH: Fibroadenoma of right breast, depression, chronic restrictive lung disease, JAIME, Asthma, migraines, Fibromyalgia, Spondylosis of lumbar region without myelopathy or radiculopathy Patient was seen in [facility] ED for suprapubic pressure/pain Pelvic ultrasound was done with normal findings test is negative and urinalysis shows +3 bacteria (clean catch) patient was treated with Macrobid; finished course without relief Patient denies dysuria, denies urinary frequency, denies hematuria, denies vaginal discharge Patient reports that she had her menses on October 19. Reports that it was only for one day but it was heavier than than her usual: Reports that her periods usually last for 3 days -will order STD testings Refer the patient to Urology and the was encouraged to contact her OBGYN for an appt. 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 Hip pain Migraines Fibromyalgia Urticaria DISH (disseminated idiopathic skeletal hyperostosis) Anxiety Hiatal hernia GERD (gastroesophageal reflux disease) History of lupus Asthma Surgical History Status post right breast lumpectomy (01/25/23) History of surgery Hx of cholecystectomy Hx of arthroscopy of knee Hx of gastric bypass History of esophagogastroduodenoscopy (EGD) Family History Father CVD (cardiovascular disease), Onset Age: 65 Mother Hypertension Rheumatoid arthritis Lupus Maternal Grandmother CAD (coronary artery disease) Diabetes Maternal Grandfather CAD (coronary artery disease) Diabetes Family/Other FH: mental illness Mental health disorder Paternal Aunt No problems noted. Brother Diabetes Hypertension Social History Household Members: Family Housing: House Are you a primary ambulatory care nurse to a significant other at home: No Do you presently have visiting nurse or other home services: No Alcohol intake: current Alcohol intake frequency: holidays/special occasions only Alcohol type: hard liquor Patient Tobacco Use Status: Never used Tobacco e-Cigarette/Vaping Use: Never Used Second Hand Smoke Exposure: No service: No Current occupational status: employed Current occupational exposures/hazards: No Cognitive needs: No Hearing needs: No Vision needs: Yes Questionnaire PHQ-9 Over the last 2 weeks, how often have you been bothered by any of the following problems? 1. Little interest or pleasure in doing things: several days 2. Feeling down, depressed, or hopeless: more than half the days 3. Trouble falling or staying asleep, or sleeping too much: more than half the days 4. Feeling tired or having little energy: more than half the days 5. Poor appetite or overeating: several days 6. Feeling bad about yourself - or that you are a failure or have let yourself or your family down: not at all 7. Trouble concentrating on things, such as reading the newspaper or watching television: not at all 8. Moving or speaking so slowly that other people could have noticed. Or the opposite - being so fidgety or restless that you have been moving around a lot more than usual: not at all 9. Thoughts that you would be better off or of hurting yourself in some way: not at all Total score: 8 Depression Screening Interpretation: Positive Depression Screening Follow-up: Existing condition and In treatment Depression Screening Done: Yes 51796 - PHQ-9 Billing: Yes Source: Developed by Drs. Emmanuel Chatterjee, Krysten Matamoros, Cameron Hanley and colleagues, with an educational kaitlin from [employer]. Thrive Questionnaire Date Thrive assessed: 11/08/24 I am a: Patient What is your living situation today?: I have a steady place to live Within the past 12 months, did the food you bought not last and you didn't have the money to get more?: I choose not to answer this question Within the past 12 months, did you worry whether your food would run out before you got money to buy more?: I choose not to answer this question Do you have trouble paying for medicines?: I choose not to answer this question Do you have trouble getting transportation to medical appointments?: No Do you have trouble paying your heating and electricity bill?: No Do you have trouble taking care of your child, family member or friend?: No Do you have trouble with day-to-day activities such as bathing, preparing meals, shopping, managing finances, etc.?: I choose not to answer this question Are you interested in more education?: No Please select the resources that you would like help with: None Currently or been in a relationship where the following occur: I choose not to answer THRIVE Score: 0 AUDIT C Alcohol Use Questionnaire (AUDIT-C) 1. How often do you have a drink containing alcohol?: Monthly or less 2. How many drinks containing alcohol do you have on a typical day when you are drinking?: 1 or 2 3. How often do you have six or more drinks on one occasion?: Never Total Score: 1 Score Reviewed/Action Taken: Yes JOSEPHINE-7 AMB Questionnaire JOSEPHINE-7 Date JOSEPHINE - 7 assessed: 11/08/24 Feeling nervous, anxious, or on edge: 1 = Several days Not being able to stop or control worryin = Not at all Worrying too much about different things: 0 = Not at all Trouble relaxin = Not at all Being so restless that it is hard to sit still: 0 = Not at all Becoming easily annoyed or irritable: 0 = Not at all Feeling afraid as if something awful might happen: 0 = Not at all Total JOSEPHINE-7 score (0-4 normal; 5-9 mild; 10-14 moderate; 15-21 severe): 1 Source: Developed by Drs. Emmanuel Chatterjee, Krysten Matamoros, Cameron Hanley and colleagues, with an educational kaitlin from [employer]. JOSEPHINE-7 Assessment Billing JOSEPHINE-7 Assessment Tool: JOSEPHINE-7 Assessment 20233 Review of Systems Const Details: Denies chills, Denies fatigue, Denies fever(s), Denies headache(s) and Denies weakness HEENT Denies change in vision, Denies dizziness, Denies headache(s), Denies hearing loss, Denies nasal congestion, Denies sinus pain, Denies sinus pressure and Denies sore throat Card Denies chest pain, Denies lightheadedness, Denies dyspnea and Denies other (palpitations) Resp Denies cough, Denies dyspnea and Denies wheezing GI + suprapubic pressure/pain Denies melena, Denies hematochezia, Denies change in bowel habits, Denies dyspepsia and Denies nausea Denies hematuria and Denies dysuria Musc Denies abnormal gait, Denies myalgias, Denies arthralgias, Denies numbness and Denies tingling Skin/Breast Denies rash, Denies unusual bruising and Denies wounds Neuro Denies abnormal gait, Denies dizziness, Denies headache(s), Denies memory loss, Denies numbness, Denies Sensory deficit (Neuro), Denies tingling and Denies weakness Psych Denies anxiety, Denies depression and Denies memory loss Endo Denies cold intolerance, Denies fatigue, Denies heat intolerance, Denies polydipsia and Denies polyuria Ge/Lymph Denies easy bleeding and Denies easy bruising Aller/Immun Denies wheezing Physical exam (Primary Care) Vital Signs: Last Vital Signs Temp 98.8 F 11/08/24 11:06 Pulse 90 11/08/24 11:06 BP 136/80 11/08/24 11:06 Pulse Ox 98 11/08/24 11:06 Oxygen Delivery Method Room Air 11/08/24 11:06 BMI result Body Mass Index 34.3 Tobacco/Smoking Status: Tobacco use Status Tobacco use date assessed 11/08/24 11/08/24 11:14 Patient Tobacco Use Status Never used Tobacco 11/08/24 11:07 e-Cigarette/Vaping Use Never Used 11/08/24 11:07 PHQ-9: PHQ-9 Score PHQ-9: Total score 8 11/08/24 23:59 Depression Screening Interpretation: Positive Depression Screening Follow-up: Existing condition and In treatment Thrive Assessment: Date of Thrive Assessment Date Thrive assessed 11/08/24 11/08/24 11:07 Currently or been in a relationship where the following occur: I choose not to answer Const Other: General: no acute distress, well developed, alert and awake Nutritional Appearance: well nourished Orientation/consciousness: patient oriented x3 HENMT Head: Yes normocephalic and Yes atraumatic Ears: hearing grossly normal bilaterally and TM's normal bilaterally Eyes Pupils: Equal, round and reactive pupils present and Pupil accommodation reflex normal EOM: EOMs intact bilaterally Neck Neck: Yes normal visual inspection, Yes no lymphadenopathy and Yes trachea midline Thyroid: Thyroid normal Lymphatic: no lymphadenopathy noted Chest Chest palpation & inspection: normal inspection of the chest Resp Effort & Inspection: normal respiratory effort Auscultation: clear to auscultation bilaterally Cardio Rate: regular rate Rhythm: regular rhythm Heart sounds: S1 normal heart sound present, S2 normal heart sound present, no gallops, no murmurs and no rubs GI Palpation (GI): +pain/pressure to suprapubic region Auscultation: normal bowel sounds General: Yes no CVA tenderness Back/Spine/Pelvis Back: no CVA tenderness Skin General: warm and dry. Normal skin color. Normal skin turgor Lesions: no lesions Nails: normal Neuro General: patient oriented x3, gait normal Cranial nerves: Yes Equal, round and reactive pupils present Cognition (Neuro): normal cognition Gait exam (Neuro): Normal gait present Extrem General: Yes normal to inspection, No edema and No calf tenderness Psych Appearance: grossly normal Affect: normal affect Attitude: cooperative Thought process: Normal thought process present Coding Level of Care Code Est Pt Level 3 (00505) Diagnoses Suprapubic abdominal pain R10.2 Additional Codes JOSEPHINE-7 Assessment Billing - JOSEPHINE-7 Assessment Tool: JOSEPHINE-7 Assessment 28543 ([id number]) PHQ-9 - 70569 - PHQ-9 Billing: Yes ([id number]) Time Spent (min) 29 Assessment & Plan Assessment & Plan (1) Suprapubic abdominal pain: Code(s): R10.2 - Pelvic and perineal pain Category: Medical Plan: The patient was seen in the ED: negative test, urinalysis with moderate bacteria that was treated with macrobid without any relief of her symptoms. US pelvis Transvaginal: shows normal uterus and ovaries for age The patient reports abnormal LMP-she was encouraged to follow up with her obgyn The patient was referred to urology to r/o possible interstitial cystitis STD testings were ordered as well Plan The patient to follow up with Dr. Rebolledo in January she is going to keep appointment and will call us sooner if she needs to be seen Orders: Orders HIV Ab/Ag 11/08/24 R10.2 - Pelvic and perineal pain CT NG by PCR 11/08/24 R10.2 - Pelvic and perineal pain Urine Culture 11/08/24 R10.2 - Pelvic and perineal pain Syphilis Screen 11/08/24 R10.2 - Pelvic and perineal pain Referrals Urology Referral R10.2 - Pelvic and perineal pain
--- OUTSIDE RECORDS SUMMARY | 2024-11-08 12:16 | XMS_ITS | Encounter Summary ---
Author Organization [facility] Address [address] [place] [address] Care Team Providers [employer] Salesperson Name Role Phone Muriel Julian MD Primary Care Provider [phone] Reason for Visit * Reason Comments Abdominal Pain Lower abdominal pain for the past two days. Encounter Details Date Type Department Care Team (Late st Contact Info) Description 10/31/2024 2:03 PM EST - 10/31/2024 5:40 PM EST Emergency [facility] Emergency [address] [place] [address] Acute cystitis without hematuria (Primary Dx) Discharge Disposition: Home or Self Care Social History Tobacco Use Types Packs/Day Years Used Date Smoking Tobacco: Never Smokeless Tobacco: Never Alcohol Use Standard Drinks/Week Comments Yes 0 (1 standard drink = 0.6 oz pur e alcohol) Sex and Gender Information Value Date Recorded Sex Assigned at Not on file Gender Identity Not on file Sexual Orientation Not on file Job Start Date Occupation Industry Not on file Not on file Not on file Travel History Travel Start Travel End [place] 09/30/2024 10/31/2024 documented as of this encounter Last Filed Vital Signs Vital Sign Reading Time Taken Comments Blood Pressure 142/90 10/31/2024 12:13 PM EST Pulse 70 10/31/2024 12:12 PM EST Temperature 36.6 ??C (97.9 ??F) 10/31/2024 12:[address] Respiratory Rate 16 10/31/2024 12:12 PM EST Oxygen Saturation 100% 10/31/2024 12:12 PM EST Inhaled Oxygen Concentration - - Weight 89.8 kg (198 lb) 10/31/2024 12:12 PM EST Height 160 cm (5' 3 ) 10/31/2024 12:12 PM EST Body Mass Index 35.07 10/31/2024 12:12 PM EST documented in this encounter Discharge Instructions * Discharge Instructions* LIGIA Kuamri - 10/31/2024 5:02 PM EST As discussed please also follow-up with MARKETING DEVELOPER on the abnormal menstrual period * Attachments The following attachments cannot be sent through Care Everywhere. * Bladder Diet (Lao) * UTI (Urinary Tract Infection): Female (Lao) documented in this encounter Medications at Time of Discharge Medication Sig Dispensed Refills Start Date End Date nitrofurantoin, macrocrystal-monohydrat e, (MACROBID) 100 mg capsule Take 1 capsule (100 mg total) by mouth 2 (two) times a day for 5 days. 10 capsule 10/31/2024 11/05/2024 documented as of this encounter Ordered Prescriptions Prescription Sig Dispensed Refills Start Date End Da te nitrofurantoin, macrocrystal-monohydrate , (MACROBID) 100 mg capsule Take 1 capsule (100 mg total) by mouth 2 (two) times a day for 5 days. 10 capsule 10/31/2024 11/05/2024 documented in this encounter Discharge Disposition Disposition Code Departure Means Destination Comment s Home or Self Care documented in this encounter Progress Notes * Stephany Kuo RN - 10/31/2024 11:33 AM EST For the past two days she's had lower abdominal pain. She denies N/V/D or vaginal discharge. * LIGIA Kumari - 10/31/2024 11:30 AM EST Emergency Medicine Note Patient Name: Tonie Gomes Initial Evaluation: 10/31/2024 : 1980 Patient's PCP: Muriel Julian MD Emergency Physician: LIGIA Kumari History of Present Illness Chief Complaint: Chief Complaint Patient presents with Abdominal Pain Lower abdominal pain for the past two days. HPI: 44-year-old female G2, P0 presents with middle lower suprapubic abdominal pain x 2 days. She says this month she had an abnormal. And that it was only 1 day and heavy. She says her usual menstrual period is 3 days long. -She denies fevers, chills, dysuria, urinary frequency, hematuria, abnormal vaginal discharge, cough, chest pain, shortness of breath, rash ROS: I have performed a ROS with the pertinent positives and negatives documented in the history ofpresent illness. Previous History Past Medical History: Diagnosis Date Arthritis DX:Arthritis Asthma DX:Asthma Chronic migraine with aura DX:Chronic migraine with aura Fibromyalgia DX:Fibromyalgia Frequent headaches DX:Frequent headaches Type A blood, Rh positive 09/2021 DX:Type A blood, Rh positive Past Surgical History: Procedure Laterality Date CHOLECYSTECTOMY PROCEDURE: [place] CHOLECYSTECTOMY GASTRIC BYPASS PROCEDURE: IL GASTRIC RSTCV W/BYP W/SM INT RCNSTJ LIMIT ABSRPJ; COMMENT: surgeon Dr. Torres- [phone] OTHER SURGICAL HISTORY PROCEDURE: IL OPEN TX KNEE DISLOCATION W/REPAIR/RECONSTRUCTION Social History Tobacco Use Smoking status: Never Smokeless tobacco: Never Substance Use Topics Alcohol use: Yes Drug use: No Family History Problem Relation Name Age of Onset Hypertension Mother Arthritis Mother Other (Other: lupus) Mother Other (Other: Other) Mother Hypertension Father Diabetes Father Arthritis Sister x4 Diabetes Brother 41.00 Hypertension Brother Coronary artery disease Brother Diabetes Maternal Grandmother Diabetes Maternal Grandfather Breast cancer Neg Hx Ovarian cancer Neg Hx is allergic to benzoin. No current facility-administered medications on file prior to encounter. No current outpatient medications on file prior to encounter. Physical Exam ED Triage Vitals Temp Heart Rate Resp BP 10/31/24 1212 10/31/24 1212 10/31/24 1212 10/31/24 1213 36.6 ??C (97.9 ??F) 70 16 (!) 142/90 SpO2 Temp Source Heart Rate Source Patient Position 10/31/24 1212 01/14/25 1212 -- -- 100 % Oral BP Location FiO2 (%) -- -- General: awake, calm, cooperative, No apparent distress Skin: warm, dry, No diaphoresis Eyes: PERRLA, EOMI ENT: mucosa moist, throat is clear Neck: soft/supple, full range of motion, no nuchal rigidity Respiratory: clear to auscultation Cardiovascular: regular rate and rhythm, no peripheral edema Gastrointestinal: soft, suprapubic tenderness, normal active bowel sounds, no hepatomegaly Musculoskeletal: no calf tenderness, no pedal edema, appropriate range of motion in upper and lowerextremities Neurological: alert and oriented X3, no focal deficit, DTR intact, cranial nerves III through XII intact, strength 5/5 bilateral hands, 5/5 strength upper and lower extremities Psychiatric: stable mood and affect Results Labs Reviewed CBC WITH AUTO DIFFERENTIAL - Abnormal Result Value WBC 3.8 (*) RBC 4.50 Hemoglobin 13.5 Hematocrit 44.1 MCV 97.6 MCH 29.9 MCHC 30.6 (*) RDW 13.0 Platelets 209 MPV 12.0 (*) NRBC 0.0 NRBC Absolute 0.00 Neutrophils Relative 43.2 Lymphocytes Relative 45.3 Monocytes Relative 9.7 Eosinophils Relative 1.0 Basophils Relative 0.8 Immature Granulocytes Relative 0.0 Neutrophils Absolute 1.65 Lymphocytes Absolute 1.73 Monocytes Absolute 0.37 Eosinophils Absolute 0.04 Basophils Absolute 0.03 Immature Granulocytes Absolute 0.00 URINALYSIS WITH REFLEX MICROSCOPIC AND CULTURE - Abnormal Specific [place] Urine 1.023 pH, Urine 6.5 Leukocytes, Urine Trace (*) Nitrite, Urine Negative Protein, Urine Negative Glucose, Urine Negative Ketones, Urine Trace (*) Urobilinogen, Urine 1.0 Bilirubin, Urine Negative Blood, Urine Negative RBC, Urine 2.0 WBC, Urine 0.7 Squamous Epithelial, Urine >100 (*) Bacteria, Urine Moderate (*) Hyaline Casts, Urine 2.0 COMPREHENSIVE METABOLIC PANEL - Normal Sodium 138 Potassium 4.2 Chloride 104 CO2 30 Anion Gap 4 Glucose 98 BUN 17 Creatinine 0.67 eGFR 111 BUN/Creatinine Ratio 25.4 Calcium 9.3 AST (SGOT) 15 ALT (SGPT) 21 Alkaline Phosphatase 71 Total Protein 7.7 Albumin 3.8 Total Bilirubin 0.4 CULTURE URINE CBC AND DIFFERENTIAL Narrative: The following orders were created for panel order CBC and differential. Procedure Abnormality Status --------- ------ CBC auto differential[[id number]] Abnormal Final result Please view results for these tests on the individual orders. URINALYSIS WITH REFLEX MICROSCOPIC AND CULTURE Narrative: The following orders were created for panel order Urinalysis with reflex microscopic and culture. Procedure Abnormality Status --------- ------ Urinalysis with reflex ...[[id number]] Abnormal Final result Hope urine culture tube[[id number]] Final result Please view results for these tests on the individual orders. POC , URINE DIAGNOSTIC HCG, Ur POC Negative POC hCG Int QC Pass? Yes EXPIRATION DATE POC LOT NUMBER POC Abnormal Labs Reviewed CBC WITH AUTO DIFFERENTIAL - Abnormal; Notable for the following components: Result Value WBC 3.8 (*) MCHC 30.6 (*) MPV 12.0 (*) All other components within normal limits URINALYSIS WITH REFLEX MICROSCOPIC AND CULTURE - Abnormal; Notable for the following components: Leukocytes, Urine Trace (*) Ketones, Urine Trace (*) Squamous Epithelial, Urine >100 (*) Bacteria, Urine Moderate (*) All other components within normal limits US Pelvis Transvaginal Non OB Final Result Impression: Normal uterus and ovaries for age. No adnexal masses. Telelouie STRONG ([id number]) -------- FINAL REPORT -------- Dictated By: Tran Nielsen Dictated Date: 10/31/2024 16:07 ET Assigned Physician: Tran Nielsen Reviewed and Electronically Signed By: Tran Nielsen Signed Date: 10/31/2024 16:10 ET Workstation ID: [id number] Transcribed By: Self Edit Transcribed Date: 10/31/2024 16:07 ET I have discussed the incidental/abnormal imaging and/or lab abnormalities with the patient and haveinstructed them the need for further evaluation and workup with their primary care doctor. The laboratory results, imaging results and other diagnostic exam results were reviewed in the EMR. EKG Interpretation Critical Care Time None ? Medical Decision Making MDM as described in ED course below Medications - No data to display ED Course as of 10/31/24 2200 Tue Oct 31, 2024 1411 Seen and evaluated. History and physical exam performed. Vitals reviewed. Will await UA/urine test for further evaluation. If no clear UTI may need to proceed with ultrasound for further evaluation [AT] 1702 Reviewed patient results with her at bedside. Given her symptoms will start antibiotics for possible developing UTI. She also follow-up with MARKETING DEVELOPER any abnormal menstrual period [AT] ED Course User Index [AT] LIGIA Kumari Clinical Impressions as of 10/31/24 2200 Acute cystitis without hematuria Procedures Procedures Differential Diagnosis Simple cystitis Pyelonephritis Uterine fibroids Urine cysts Diagnosis 1. Acute cystitis without hematuria Disposition Discharge Condition: Stable ED Prescriptions Medication Sig Dispense Start Date End Date Auth. Provider nitrofurantoin, macrocrystal-monohydrate, (MACROBID) 100 mg capsule Take 1 capsule (100 mg total) by mouth 2 (two) times a day for 5 days. 10 capsule 10/31/2024 11/05/2024 LIGIA Kumari Physician Attestation LIGIA Kumari 10/31/24 1413 LIGIA Kumari 10/31/24 1706 LIGIA Kumari 10/31/[id number] documented in this encounter Plan of Treatment Pending Results Name Type Priority Associated Diagnoses Date /Time POC , urine manually resulted Point of Care Testing STAT 10/31/2024 2:18 PM EST Scheduled Orders Name Type Priority Associated Diagnoses Orde r Schedule POC , urine manually resulted Point of Care Testing STAT Once for 1 Occurrences starting 10/31/2024 until 10/31/2024 documented as of this encounter Procedures Procedure Name Priority Date/Time Associated Diagnosis Comments US PELVIS TRANSVAGINAL NON OB STAT 10/31/2024 4:00 PM EST URINALYSIS WITH REFLEX MICROSCOPIC AND CULTURE STAT 10/31/2024 2:17 PM EST HOPE URINE CULTURE TUBE STAT 10/31/2024 2:17 PM EST URINALYSIS WITH REFLEX MICROSCOPIC AND CULTURE STAT 10/31/2024 2:17 PM EST CULTURE URINE STAT 10/31/2024 2:17 PM EST CBC WITH AUTO DIFFERENTIAL STAT 10/31/2024 11:44 AM EST CBC AND DIFFERENTIAL STAT 10/31/2024 11:44 AM EST COMPREHENSIVE METABOLIC PANEL STAT 10/31/2024 11:44 AM EST documented in this encounter Results * US Pelvis Transvaginal Non OB (10/31/2024 4:00 PM EST) Anatomical Region Laterality Modality Body Ultrasound 10/31/2024 4:07 PM EST Impressions 10/31/2024 4:10 PM EST Impression: Normal uterus and ovaries for age. No adnexal masses. Telerad LIGIA ([id number]) -------- FINAL REPORT -------- Dictated By: Tran Nielsen Dictated Date: 10/31/2024 16:07 ET Assigned Physician: Tran Nielsen Reviewed and Electronically Signed By: Tran Nielsen Signed Date: 10/31/2024 16:10 ET Workstation ID: [id number] Transcribed By: Self Edit Transcribed Date: 10/31/2024 16:07 ET Narrative 10/31/2024 4:10 PM EST History: 44-year-old non female, LMP 10/19/24, with suprapubic pain for 2 days. Comparison: 04/26/18 Findings: Transvesical imaging of the pelvis is supplemented with transvaginal imaging for better detail of the uterus and adnexa. The uterus remains normal in size and configuration, measuring 8.9 cm in length by 3.5 cm in depth by 5.0 cm in width. The endometrial echocomplex measures 10 mm in thickness double layer. No endometrial fluid collections are seen. There is no free fluid in the cul-de-sac. The right ovary measures 2.9 x 3.1 x 2.5 cm and has normal vascular flow by Doppler analysis. Tiny follicles are present. The left ovary measures 3.1 x 2.2 x 2.1 cm and contains tiny follicles. Normal vascular flow is demonstrated. No adnexal masses are seen. Procedure Note Tran Nielsen MD - 10/31/2024 History: 44-year-old non female, LMP 10/19/24, with suprapubic painfor 2 days. Comparison: 04/26/18 Findings: Transvesical imaging of the pelvis is supplemented with transvaginalimaging for better detail of the uterus and adnexa. The uterus remains normal in size and configuration, measuring 8.9 cm inlength by 3.5 cm in depth by 5.0 cm in width. The endometrial echocomplex measures 10 mm in thickness double layer. Noendometrial fluid collections are seen. There is no free fluid in the cul-de-sac. The right ovary measures 2.9 x 3.1 x 2.5 cm and has normal vascular flowby Doppler analysis. Tiny follicles are present. The left ovary measures 3.1 x 2.2 x 2.1 cm and contains tiny follicles.Normal vascular flow is demonstrated. No adnexal masses are seen. IMPRESSION: Impression: Normal uterus and ovaries for age. No adnexal masses. Estifylouie STRONG ([id number]) -------- FINAL REPORT -------- Dictated By: Tran Nielsen Dictated Date: 10/31/2024 16:07 ET Assigned Physician: Tran Nielsen Reviewed and Electronically Signed By: Tran Nielsen Signed Date: 10/31/2024 16:10 ET Workstation ID: [id number] Transcribed By: Self Edit Transcribed Date: 10/31/2024 16:07 ET Fadia STRONG IMG US PROCEDURE S * Culture urine (10/31/2024 2:17 PM EST) Culture, Urine No growth 11/01/2024 10:21 AM EST [facility] Urine Urine specimen obtained by clean catch procedure / Unknown Non-blood Collection / Unknown 10/31/2024 2:17 PM EST 10/31/2024 2:57 PM EST Juancarlos Guillen Maureen MCDANIELS LAB MICROBIOLOGY - GENERAL ORDERABLES Performing Organization Address City/[facility]/ZIP Co de Phone Number [facility] [address] [place] [address], [place] [phone] * Hope urine culture tube (10/31/2024 2:17 PM EST) Pathologist [facility] Extra Tube Hold for add-ons. 10/31/2024 4:02 PM [facility] Comment:Auto resulted. Urine Urine specimen obtained by clean catch procedure / Unknown Non-blood Collection / Unknown 10/31/2024 2:17 PM EST 10/31/2024 2:30 PM EST Juancarlos Guillen Maureen MCDANIELS LAB URINE ORDERABLE S Performing Organization Address [facility]/ZIP Co de Phone Number [facility] [address] [place] [address], [place] [phone] * (ABNORMAL) Urinalysis with reflex microscopic and culture (10/31/2024 2:17 PM EST) [facility] Specific [place] Urine 1.023 1.003 - 1.030 LAB URINALYSIS - AUTOMATED METHOD 10/31/2024 2:57 PM [facility] pH, Urine 6.5 5.0 - 8.0 pH LAB URINALYSIS - AUTOMATED METHOD 10/31/2024 2:57 PM [facility] Leukocytes, Urine Trace(A) Negative LAB URINALYSIS - AUTOMATED METHOD 10/31/2024 2:57 PM [facility] Nitrite, Urine Negative Negative LAB URINALYSIS - AUTOMATED METHOD 10/31/2024 2:57 PM [facility] Protein, Urine Negative <=Trace mg/dL LAB URINALYSIS - AUTOMATED METHOD 10/31/2024 2:57 PM [facility] Glucose, Urine Negative Negative mg/dL LAB URINALYSIS - AUTOMATED METHOD 10/31/2024 2:57 PM [facility] Ketones, Urine Trace(A) Negative mg/dL LAB URINALYSIS - AUTOMATED METHOD 10/31/2024 2:57 PM [facility] Urobilinogen , Urine 1.0 0.2 - 1.0 mg/dL LAB URINALYSIS - AUTOMATED METHOD 10/31/2024 2:57 PM [facility] Bilirubin, Urine Negative Negative LAB URINALYSIS - AUTOMATED METHOD 10/31/2024 2:57 PM [facility] Blood, Urine Negative Negative LAB URINALYSIS - AUTOMATED METHOD 10/31/2024 2:57 PM [facility] RBC, Urine 2.0 0 - 4 /HPF LAB URINALYSIS - AUTOMATED METHOD 10/31/2024 2:57 PM [facility] WBC, Urine 0.7 0 - 4 /HPF LAB URINALYSIS - AUTOMATED METHOD 10/31/2024 2:57 PM [facility] Squamous Epithelial, Urine >100(H) 0 - 60 /LPF LAB URINALYSIS - AUTOMATED METHOD 10/31/2024 2:57 PM [facility] Bacteria, Urine Moderate(A) Negative /HPF LAB URINALYSIS - AUTOMATED METHOD 10/31/2024 2:57 PM [facility] Hyaline Casts, Urine 2.0 0 - 3 /LPF LAB URINALYSIS - AUTOMATED METHOD 10/31/2024 2:57 PM [facility] Urine Urine specimen obtained by clean catch procedure / Unknown Non-blood Collection / Unknown 10/31/2024 2:17 PM EST 10/31/2024 2:30 PM EST Juancarlos Reddy DO LAB URINE ORDERABLE S [facility] [address] [place] [address], * (ABNORMAL) CBC auto differential (10/31/2024 11:44 AM EST) [facility] WBC 3.8(L) 4.8 - 10.8 K/mcL LAB HEMETOLOGY METHOD 10/31/2024 12:06 PM [facility] RBC 4.50 3.80 - 4.80 M/mcL LAB HEMETOLOGY METHOD 10/31/2024 12:06 PM [facility] Hemoglobin 13.5 11.5 - 16.0 g/dL LAB HEMETOLOGY METHOD 10/31/2024 12:06 PM [facility] Hematocrit 44.1 35.0 - 47.0 % LAB HEMETOLOGY METHOD 10/31/2024 12:06 PM [facility] MCV 97.6 79.0 - 98.0 FL LAB HEMETOLOGY METHOD 10/31/2024 12:06 PM [facility] MCH 29.9 27.0 - 32.0 pcg LAB HEMETOLOGY METHOD 10/31/2024 12:06 PM [facility] MCHC 30.6(L) 32.0 - 37.0 g/dL LAB HEMETOLOGY METHOD 10/31/2024 12:06 PM [facility] RDW 13.0 11.0 - 15.0 % LAB HEMETOLOGY METHOD 10/31/2024 12:06 PM [facility] Platelets 209 130 - 400 K/mcL LAB HEMETOLOGY METHOD 10/31/2024 12:06 PM [facility] MPV 12.0(H) 7.0 - 11.0 FL LAB HEMETOLOGY METHOD 10/31/2024 12:06 PM [facility] NRBC 0.0 <1.0 % LAB HEMETOLOGY METHOD 10/31/2024 12:06 PM [facility] NRBC Absolute 0.00 <0.10 K/mcL LAB HEMETOLOGY METHOD 10/31/2024 12:06 PM [facility] Neutrophils Relative 43.2 % LAB HEMETOLOGY METHOD 10/31/2024 12:06 PM [facility] Lymphocytes Relative 45.3 % LAB HEMETOLOGY METHOD 10/31/2024 12:06 PM [facility] Monocytes Relative 9.7 % LAB HEMETOLOGY METHOD 10/31/2024 12:06 PM [facility] Eosinophils Relative 1.0 % LAB HEMETOLOGY METHOD 10/31/2024 12:06 PM [facility] Basophils Relative 0.8 % LAB HEMETOLOGY METHOD 10/31/2024 12:06 PM [facility] Immature Granulocytes Relative 0.0 % LAB HEMETOLOGY METHOD 10/31/2024 12:06 PM [facility] Neutrophils Absolute 1.65 1.50 - 7.00 K/mcL LAB HEMETOLOGY METHOD 10/31/2024 12:06 PM [facility] Lymphocytes Absolute 1.73 1.00 - 5.00 K/mcL LAB HEMETOLOGY METHOD 10/31/2024 12:06 PM [facility] Monocytes Absolute 0.37 0.20 - 1.00 K/mcL LAB HEMETOLOGY METHOD 10/31/2024 12:06 PM [facility] Eosinophils Absolute 0.04 0.00 - 0.50 K/mcL LAB HEMETOLOGY METHOD 10/31/2024 12:06 PM [facility] Basophils Absolute 0.03 0.00 - 0.20 K/mcL LAB HEMETOLOGY METHOD 10/31/2024 12:06 PM [facility] Immature Granulocytes Absolute 0.00 0.00 - 0.03 K/mcL LAB HEMETOLOGY METHOD 10/31/2024 12:06 PM [facility] Blood Venous blood specimen / Unknown Venipuncture / Unknown 10/31/2024 11:44 AM EST 10/31/2024 11:58 AM EST Juancarlos Guillen Maureen MCDANIELS LAB BLOOD ORDERABLE S [facility] [address] [place] [address], * Comprehensive metabolic panel (10/31/2024 11:44 AM EST) Sodium 138 133 - 145 mmol/L LAB CHEMISTRY METHOD 10/31/2024 12:28 PM [facility] Potassium 4.2 3.5 - 5.5 mmol/L LAB CHEMISTRY METHOD 10/31/2024 12:28 PM [facility] Chloride 104 96 - 110 mmol/L LAB CHEMISTRY METHOD 10/31/2024 12:28 PM [facility] CO2 30 21 - 32 mmol/L LAB CHEMISTRY METHOD 10/31/2024 12:28 PM [facility] Anion Gap 4 3 - 11 LAB CHEMISTRY METHOD 10/31/2024 12:28 PM [facility] Glucose 98 70 - 100 mg/dL LAB CHEMISTRY METHOD 10/31/2024 12:28 PM [facility] BUN 17 5 - 25 mg/dL LAB CHEMISTRY METHOD 10/31/2024 12:28 PM [facility] Creatinine 0.67 0.50 - 1.10 mg/dL LAB CHEMISTRY METHOD 10/31/2024 12:28 PM [facility] eGFR 111 >=60 mL/min/1. 73m2 LAB CHEMISTRY METHOD 10/31/2024 12:28 PM [facility] Comment:Calculation based on the??Chronic Kidney Disease Epidemiology Collaboration (CKD-EPI) equation refit??without adjustment for race. BUN/Creatinine Ratio 25.4 LAB CHEMISTRY METHOD 10/31/2024 12:28 PM [facility] Calcium 9.3 8.5 - 10.5 mg/dL LAB CHEMISTRY METHOD 10/31/2024 12:28 PM [facility] AST (SGOT) 15 10 - 42 unit/L LAB CHEMISTRY METHOD 10/31/2024 12:28 PM [facility] ALT (SGPT) 21 10 - 60 unit/L LAB CHEMISTRY METHOD 10/31/2024 12:28 PM [facility] Alkaline Phosphatase 71 42 - 121 unit/L LAB CHEMISTRY METHOD 10/31/2024 12:28 PM [facility] Total Protein 7.7 6.0 - 8.0 g/dL LAB CHEMISTRY METHOD 10/31/2024 12:28 PM [facility] Albumin 3.8 3.2 - 5.0 g/dL LAB CHEMISTRY METHOD 10/31/2024 12:28 PM [facility] Total Bilirubin 0.4 0.0 - 1.4 mg/dL LAB CHEMISTRY METHOD 10/31/2024 12:28 PM [facility] Blood Venous blood specimen / Unknown Venipuncture / Unknown 10/31/2024 11:44 AM EST 10/31/2024 11:58 AM EST Juancarlos Reddy DO LAB BLOOD ORDERABLE S [facility] [address] [place] [address], documented in this encounter Visit Diagnoses Diagnosis Acute cystitis without hematuria- Primary documented in this encounter Care Teams Life Insurance Salesperson Relationship Specialty Start Date End Date Muriel Julian MD 2 [facility] [address] Physician Associ D/B/A: [facility] [place], [place] PCP - General Internal Medicine 02/15/18 documented as of this encounter
--- OUTSIDE RECORDS SUMMARY | 2024-11-08 12:16 | XMS_ITS | Clinical Summary ---
Author Organization [facility] Address [address] [place] [address] Phone Care Team Providers Care Administrative Receptionist Name Role Phone Muriel Julian MD Primary Care Provider Allergies Active Allergy Reactions Criticality Noted Date Comments Benzoin 03/16/2018 Medications Medication Sig Dispensed Refills Start Date End Date Status nitrofurantoin, macrocrystal-monohy drate, (MACROBID) 100 mg capsule Take 1 capsule (100 mg total) by mouth 2 (two) times a day for 5 days. 10 capsule 10/31/2024 11/05/2024 Encounters Date Type Department Care Team Description 10/31/2024 2:03 PM EST - 10/31/2024 5:40 PM EST Emergency [facility] [address] [place] [address] Acute cystitis without hematuria (Primary Dx) Discharge Disposition: Home or Self Care from Last 3 Months Surgical History Surgery Date Site/Laterality Comments GASTRIC BYPASS PROCEDURE: SC GASTRIC RSTCV W/BYP W/SM INT RCNSTJ LIMIT ABSRPJ; COMMENT: surgeon Dr. Torres- [phone] OTHER SURGICAL HISTORY PROCEDURE: SC OPEN TX KNEE DISLOCATION W/REPAIR/RECONSTRUCTION CHOLECYSTECTOMY PROCEDURE: SC CHOLECYSTECTOMY Medical History Medical History Date Comments Asthma DX:Asthma Frequent headaches DX:Frequent h eadaches Arthritis DX:Arthritis Fibromyalgia DX:Fibromyalgia Chronic migraine with aura DX:Ch ronic migraine with aura Type A blood, Rh positive 09/2021 DX:Typ e A blood, Rh positive Family History Medical History Relation Name Comments Coronary artery disease Brother Diabetes Brother Hypertension Brother Diabetes Father Hypertension Father Diabetes Maternal Grandfather Diabetes Maternal Grandmother Arthritis Mother Hypertension Mother Other: Other Mother Other: lupus Mother Arthritis Sister x4 Breast cancer Neg Hx Ovarian cancer Neg Hx Relation Name Status Comments Brother Father Alive Maternal Grandfather Alive Maternal Grandmother Alive Mother Alive Sister x4 Alive Social History Tobacco Use Types Packs/Day Years [...] file Travel History Travel Start Travel End [place] 09/30/2024 10/31/2024 Obstetrics History Last Filed Vital Signs Vital Sign Reading [...] Mass Index 35.07 10/31/2024 12:12 PM EST Plan of Treatment Health Maintenance Due Date Last Done Comments Breast Cancer Screening 1980 Pneumococcal Vaccine: Pediatrics (0 to 5 Years) and At-Risk Patients (6 to 64 Years) (1 of 2 - PCV) 1986 DTaP,Tdap,and Td Vaccines (1 - Tdap) 1999 Hepatitis B Vaccines (1 of 3 - 19+ 3-dose series) 1999 Depression Screening 09/20/2022 HIV Screening 09/20/2022 Hepatitis C Screening 09/20/2022 Social Influencers of Health Screening 09/20/2022 Cervical Cancer Screening: P ap Smear 06/13/2024 06/13/2021 COVID-19 Vaccine (3 - 2023-2 5 season) 2024 12/28/2020, 12/05/2020 Influenza Vaccine (#1) 2024 HIB Vaccines Aged Out No longer eligi ble based on patient's age to complete this topic HPV Vaccines Aged Out No longer eligi ble based on patient's age to complete this topic Hepatitis A Vaccines Aged Out No long er eligible based on patient's age to complete this topic IPV Vaccines Aged Out No longer eligi ble based on patient's age to complete this topic MMR Vaccines Aged Out No longer eligi ble based on patient's age to complete this topic Meningococcal ACWY Vaccine Aged Out N o longer eligible based on patient's age to complete this topic RSV Immunization Patients Under 20 months Aged Out No longer eligible b ased on patient's age to complete this topic Varicella Vaccines Aged Out No longer eligible based on patient's age to complete this topic Procedures Procedure Name Priority Date/Time Associated Diagnosis Comments US PELVIS TRANSVAGINAL NON OB STAT 10/31/2024 4:00 PM EST HOPE URINE CULTURE TUBE STAT 10/31/2024 2:17 PM EST URINALYSIS WITH REFLEX MICROSCOPIC AND CULTURE STAT 10/31/2024 2:17 PM EST URINALYSIS WITH REFLEX MICROSCOPIC AND CULTURE STAT 10/31/2024 2:17 PM EST CULTURE URINE STAT 10/31/2024 2:17 PM EST CBC WITH AUTO DIFFERENTIAL STAT 10/31/2024 11:44 AM EST COMPREHENSIVE METABOLIC PANEL STAT 10/31/2024 11:44 AM EST CBC AND DIFFERENTIAL STAT 10/31/2024 11:44 AM EST PAP SMEAR Routine 06/13/2021 from Last 3 Months or Most Recently Relevant to Health Maintenance Results * US Pelvis Transvaginal Non OB (10/31/2024 4:00 PM EST) Anatomical Region Laterality Modality Body Ultrasound 10/31/2024 4:07 PM EST Impressions 10/31/2024 4:10 PM EST Impression: Normal uterus and ovaries for age. No adnexal masses. Telelouie STRONG ([id number]) -------- FINAL REPORT -------- Dictated By: Tran Nielsen Dictated Date: 10/31/2024 16:07 ET Assigned Physician: Tran Nielsen Reviewed and Electronically Signed By: Tran Nielsen Signed Date: 10/31/2024 16:10 ET Workstation ID: [id number] Transcribed By: Self Edit Transcribed Date: 10/31/2024 [...] and ovaries for age. No adnexal masses. Amena STRONG ([id number]) -------- FINAL REPORT -------- Dictated By: Tran Nielsen Dictated Date: 10/31/2024 16:07 ET Assigned Physician: Tran Nielsen Reviewed and Electronically Signed By: Tran Nielsen Signed Date: 10/31/2024 16:10 ET Workstation ID: [id number] Transcribed By: Self Edit Transcribed Date: 10/31/2024 16:07 ET Fadia STRONG IMG US PROCEDURE S * (ABNORMAL) Urinalysis with reflex microscopic and culture (10/31/2024 2:17 PM EST) Specific [place] Urine 1.023 1.003 - 1.030 LAB URINALYSIS - AUTOMATED METHOD 10/31/2024 2:57 PM [facility] pH, Urine 6.5 5.0 - 8.0 pH LAB URINALYSIS - AUTOMATED METHOD 10/31/2024 2:57 PM [facility] Leukocytes, Urine Trace(A) Negative LAB URINALYSIS - AUTOMATED METHOD 10/31/2024 2:57 PM [facility] Nitrite, Urine Negative Negative LAB URINALYSIS - AUTOMATED METHOD 10/31/2024 2:57 PM [facility] Protein, Urine Negative <=Trace mg/dL LAB URINALYSIS - AUTOMATED METHOD 10/31/2024 2:57 PM [facility] Glucose, Urine Negative Negative mg/dL LAB URINALYSIS - AUTOMATED METHOD 10/31/2024 2:57 PM [facility] Ketones, Urine Trace(A) Negative mg/dL LAB URINALYSIS - AUTOMATED METHOD 10/31/2024 2:57 PM [facility] Urobilinogen , Urine 1.0 0.2 - 1.0 mg/dL LAB URINALYSIS - AUTOMATED METHOD 10/31/2024 2:57 PM [facility] Bilirubin, Urine Negative Negative LAB URINALYSIS - AUTOMATED METHOD 10/31/2024 2:57 PM [facility] Blood, Urine Negative Negative LAB URINALYSIS - AUTOMATED METHOD 10/31/2024 2:57 PM [facility] RBC, Urine 2.0 0 - 4 /HPF LAB URINALYSIS - AUTOMATED METHOD 10/31/2024 2:57 PM [facility] WBC, Urine 0.7 0 - 4 /HPF LAB URINALYSIS - AUTOMATED METHOD 10/31/2024 2:57 PM [facility] Squamous Epithelial, Urine >100(H) 0 - 60 /LPF LAB URINALYSIS - AUTOMATED METHOD 10/31/2024 2:57 PM [facility] Bacteria, Urine Moderate(A) Negative /HPF LAB URINALYSIS - AUTOMATED METHOD 10/31/2024 2:57 PM [facility] Hyaline Casts, Urine 2.0 0 - 3 /LPF LAB URINALYSIS - AUTOMATED METHOD 10/31/2024 2:57 PM [facility] Urine Urine specimen obtained by clean catch procedure / Unknown Non-blood Collection / Unknown 10/31/2024 2:17 PM EST 10/31/2024 2:30 PM EST Juancarlos Reddy DO LAB URINE ORDERABLE S [facility] [address] [place] [address], * Hope urine culture tube (10/31/2024 2:17 PM EST) Pathologist [facility] [place] Extra Tube Hold for add-ons. 10/31/2024 4:02 PM EST [facility] Comment:Auto resulted. Urine Urine specimen obtained by clean catch procedure / Unknown Non-blood Collection / Unknown 10/31/2024 2:17 PM EST 10/31/2024 2:30 PM EST Juancarlos Reddy DO LAB URINE ORDERABLE S Performing Organization Address [facility]/ZIP Co de Phone Number [facility] [address] [place] [address], [place] [phone] * Culture urine (10/31/2024 2:17 PM EST) Pathologist [facility] [place] Culture, Urine No growth 11/01/2024 10:21 AM [facility] Urine Urine specimen obtained by clean catch procedure / Unknown Non-blood Collection / Unknown 10/31/2024 2:17 PM EST 10/31/2024 2:57 PM EST Juancarlos Reddy DO LAB MICROBIOLOGY - GENERAL ORDERABLES Performing Organization Address City/[facility]/ZIP Co de Phone Number [facility] [address] [place] [address], [place] [phone] * (ABNORMAL) CBC auto differential (10/31/2024 11:44 AM EST) WBC 3.8(L) 4.8 - 10.8 K/mcL LAB HEMETOLOGY METHOD 10/31/2024 12:06 PM [facility] RBC 4.50 3.80 - 4.80 M/mcL LAB HEMETOLOGY METHOD 10/31/2024 12:06 PM [facility] Hemoglobin 13.5 11.5 - 16.0 g/dL LAB HEMETOLOGY METHOD 10/31/2024 12:06 PM [facility] Hematocrit 44.1 35.0 - 47.0 % LAB HEMETOLOGY METHOD 10/31/2024 12:06 PM [facility] MCV 97.6 79.0 - 98.0 FL LAB HEMETOLOGY METHOD 10/31/2024 12:06 PM [facility] MCH 29.9 27.0 - 32.0 pcg LAB HEMETOLOGY METHOD 10/31/2024 12:06 PM [facility] MCHC 30.6(L) 32.0 - 37.0 g/dL LAB HEMETOLOGY METHOD 10/31/2024 12:06 PM [facility] RDW 13.0 11.0 - 15.0 % LAB HEMETOLOGY METHOD 10/31/2024 12:06 PM [facility] Platelets 209 130 - 400 K/mcL LAB HEMETOLOGY METHOD 10/31/2024 12:06 PM [facility] MPV 12.0(H) 7.0 - 11.0 FL LAB HEMETOLOGY METHOD 10/31/2024 12:06 PM [facility] NRBC 0.0 <1.0 % LAB HEMETOLOGY METHOD 10/31/2024 12:06 PM [facility] NRBC Absolute 0.00 <0.10 K/mcL LAB HEMETOLOGY METHOD 10/31/2024 12:06 PM [facility] Neutrophils Relative 43.2 % LAB HEMETOLOGY METHOD 10/31/2024 12:06 PM [facility] Lymphocytes Relative 45.3 % LAB HEMETOLOGY METHOD 10/31/2024 12:06 PM [facility] Monocytes Relative 9.7 % LAB HEMETOLOGY METHOD 10/31/2024 12:06 PM [facility] Eosinophils Relative 1.0 % LAB HEMETOLOGY METHOD 10/31/2024 12:06 PM [facility] Basophils Relative 0.8 % LAB HEMETOLOGY METHOD 10/31/2024 12:06 PM [facility] Immature Granulocytes Relative 0.0 % LAB HEMETOLOGY METHOD 10/31/2024 12:06 PM [facility] Neutrophils Absolute 1.65 1.50 - 7.00 K/mcL LAB HEMETOLOGY METHOD 10/31/2024 12:06 PM [facility] Lymphocytes Absolute 1.73 1.00 - 5.00 K/mcL LAB HEMETOLOGY METHOD 10/31/2024 12:06 PM [facility] Monocytes Absolute 0.37 0.20 - 1.00 K/mcL LAB HEMETOLOGY METHOD 10/31/2024 12:06 PM [facility] Eosinophils Absolute 0.04 0.00 - 0.50 K/mcL LAB HEMETOLOGY METHOD 10/31/2024 12:06 PM [facility] Basophils Absolute 0.03 0.00 - 0.20 K/mcL LAB HEMETOLOGY METHOD 10/31/2024 12:06 PM [facility] Immature Granulocytes Absolute 0.00 0.00 - 0.03 K/mcL LAB HEMETOLOGY METHOD 10/31/2024 12:06 PM [facility] Blood Venous blood specimen / Unknown Venipuncture / Unknown 10/31/2024 11:44 AM EST 10/31/2024 11:58 AM EST Juancarlos Reddy DO LAB BLOOD ORDERABLE S [facility] [address] [place] [address], * Comprehensive metabolic panel (10/31/2024 11:44 AM EST) Sodium 138 133 - 145 mmol/L LAB CHEMISTRY METHOD 10/31/2024 12:28 PM [facility] Potassium 4.2 3.5 - 5.5 mmol/L LAB CHEMISTRY METHOD 10/31/2024 12:28 PM [facility] Chloride 104 96 - 110 mmol/L LAB CHEMISTRY METHOD 10/31/2024 12:28 PM [facility] CO2 30 21 - 32 mmol/L LAB CHEMISTRY METHOD 10/31/2024 12:28 PM [facility] Anion Gap 4 3 - 11 LAB CHEMISTRY METHOD 10/31/2024 12:28 PM [facility] Glucose 98 70 - 100 mg/dL LAB CHEMISTRY METHOD 10/31/2024 12:28 PM [facility] BUN 17 5 - 25 mg/dL LAB CHEMISTRY METHOD 10/31/2024 12:28 PM [facility] Creatinine 0.67 0.50 - 1.10 mg/dL LAB CHEMISTRY METHOD 10/31/2024 12:28 PM [facility] eGFR 111 >=60 mL/min/1. 73m2 LAB CHEMISTRY METHOD 10/31/2024 12:28 PM [facility] Comment:Calculation based on the??Chronic Kidney Disease Epidemiology Collaboration (CKD-EPI) equation refit??without adjustment for race. BUN/Creatinine Ratio 25.4 LAB CHEMISTRY METHOD 10/31/2024 12:28 PM [facility] Calcium 9.3 8.5 - 10.5 mg/dL LAB CHEMISTRY METHOD 10/31/2024 12:28 PM [facility] AST (SGOT) 15 10 - 42 unit/L LAB CHEMISTRY METHOD 10/31/2024 12:28 PM [facility] ALT (SGPT) 21 10 - 60 unit/L LAB CHEMISTRY METHOD 10/31/2024 12:28 PM [facility] Alkaline Phosphatase 71 42 - 121 unit/L LAB CHEMISTRY METHOD 10/31/2024 12:28 PM [facility] Total Protein 7.7 6.0 - 8.0 g/dL LAB CHEMISTRY METHOD 10/31/2024 12:28 PM EST [facility] Albumin 3.8 3.2 - 5.0 g/dL LAB CHEMISTRY METHOD 10/31/2024 12:28 PM EST [facility] Total Bilirubin 0.4 0.0 - 1.4 mg/dL LAB CHEMISTRY METHOD 10/31/2024 12:28 PM EST [facility] Blood Venous blood specimen / Unknown Venipuncture / Unknown 10/31/2024 11:44 AM EST 10/31/2024 11:58 AM EST Juancarlso Reddy DO LAB BLOOD ORDERABLE S [facility] [address] [place] [address], * Pap smear (06/13/2021) 06/13/2021 Narrative HISTORICAL TESTING LAB RESULTING AGENCY - 06/24/2021 7:40 AM EDT [id number] THINPREP PAP, IMAGED: NEGATIVE FOR SQUAMOUS INTRAEPITHELIAL LESION AND MALIGNANCY . ABUNDANT PARTIALLY OBSCURING ACUTE INFLAMMATORY CELLS ARE PRESENT. ARACELI MANUEL(ASCP) (CASE ELECTRONICALLY SIGNED 06 23 2021) RESULT OF APTIMA HIGH RISK HPV ASSAY: HIGH RISK HPV: ??NEGATIVE (SEROTYPES 16,18,31,33,35,39,45,51,52,56,58,59,66,68) COMPLETED ON 2021-06-18 ADEQUACY: SATISFACTORY ENDOCERVICAL/TRANSFORMATION ZONE COMPONENT PRESENT. SOURCE: THINPREP PAP HPV ANY DX: ??REFLEX 16 AND 18, CERVICAL, IMAGED CLINICAL INFORMATION: HPV ANY DIAGNOSIS. HORMONES, LMP 05/11/2021, Z12.4 Mariana Rosales CNM LAB CYTOLOGY ORDERAB LES HISTORICAL TESTING LAB RESULTING AGENCY from Last 3 Months or Most Recently Relevant to Health Maintenance Care Teams Administrative Receptionist Relationship Specialty Start Date End Date Muriel Julian MD [address] [facility] , [address] [facility] D/B/A: [facility] ELEAZAR Castro PCP - General Internal Medicine 02/15/18
--- OUTSIDE RECORDS SUMMARY | 2024-11-08 12:17 | XMS_ITS | Continuity of Care Document ---
Author Organization [facility] Address [address] [place] [address] [address] [place] [address] Phone Care Team Providers Care Change Person Name Role Phone Justin NAPIER, RVT, RPVI, [...] 4 Office/Oupt E&M New Pt 45 Mins 24 Duplex Scan-extrem Veins; Comp Advance Directives Directive Yes / No Effective Date File Name No Information Encounters Encounter Description Practice Location Reason(s) For Visit Diagnoses Date Provider Providers Copied on Encounter Office/Outpt E&M Established 15 Mins- [place] & [place] [facility], [address] [place] [address] Dr Sharif [address], [id number], [place] tel:[phone] CVR - [place] Localized edemaCramp and spasmRestless legs syndromePruri tus, unspecified 4 Justin NAPIER RVT, RAJAT Benitez. [address] [facility], [address], [place], [place], [id number] , [place]. tel:[phone] Referring Provider: Muriel Rebolledo MD, [address] [facility] , [address] [place] D/B/A: [place], [address]. tel:[phone] Office/Outpt E&M Established 15 Mins- [place] & [place] [facility], [address] [place] [address] [address] [place], [id number], [place] tel:[phone] CVR - [place] Chronic venous hypertension (idiopathic) without complications of bilateral lower extremityPrur itus, unspecified 4 Justin NAPIER RVT, RAJAT Benitez. [address] [facility], [address], [place], [place], [id number] , [place]. [phone] Referring Provider: Muriel Rebolledo MD, [address] [facility] , [address] [place] D/B/A: [place], [address]. tel:[phone] [facility], [address] [place] [address] [address] [place]y [place], [id number], [place] tel:[phone] CVR - [facility] Chronic venous hypertension (idiopathic) with other complications of left lower extremity 4 Justin NAPIER RVT, RAJAT Benitez. [address] [facility], [address], [place], [place], [id number] , [place]. [phone] Referring Provider: Muriel Rebolledo MD, [address] [facility] , [address] [place] D/B/A: [place], [address]. tel:[phone] [facility], [address] [place] [address] [address] [place], [id number], [place] tel:[phone] CVR - [place] Encounter for follow-up examination after completed treatment for conditions other than malignant nePain in left leg 4 Justin NAPIER RVT, RAJAT Benitez. [address] [facility], [address], [facility], [place], [id number] , [place]. tel: [phone] Referring Provider: Muriel Rebolledo MD, [address] [facility] [address], [address] [place] D/B/A: [email or web address], [address]. tel:[phone] [facility], [address] [place] [address] [address], [id number], [place] tel:[phone] CVR - [place] [facility] [place] Chronic venous hypertension (idiopathic) with inflammation of left lower extremity 4 Justin NAPIER RVT, RAJAT Benitez. [address] [facility], [address], [facility], [place], [id number] , [place]. tel: [phone] Referring Provider: Muriel Rebolledo MD, [address] [facility] [address], [address] [place] [address] D/B/A: [place], [address]. tel:[phone] [facility], [address] [place] [address] [address] [place], [id number], [place] tel:[phone] CVR - [place] [facility] [place] Varicose veins of left lower extremity with other complications 4 Justin NAPIER RVT, RPVI Robert. [address] [facility], [address], [facility], [place], [id number] , [place]. [phone] Referring Provider: Muriel Rebolledo MD, [address] [facility] [address], [address] [place] [address] D/B/A: [email or web address], [address]. tel:[phone] [facility], [address] [place] [address] [address], [id number], [place] tel:[phone] CVR - [place] - [place] No Information 4 Justin NAPIER RVT, RPVI Robert. [address] [facility], [address], [facility] [place], [id number] , [place]. tel:[phone] Office/Oupt E&M New Pt 45 Mins [facility], [address] [place] [address] [address], [id number], [place] tel:[phone] CVR - [place] [facility] [place] Chronic venous hypertension (idiopathic) without complications of bilateral lower extremityPain in right lower legPain in left lower legPain in right legRestless legs syndromePruri tus, unspecifiedPa in in left legCramp and spasmLocalize d edema 4 Justin NAPIER RVT, RAJAT Benitez. [address] [place] [address], [place] [address], [place], [place], [id number] , [place]. tel:[phone] Referring Provider: Muriel Rebolledo MD, [address] [facility] , [address] [place] [address] D/B/A: [place], [address]. tel:[phone] [facility], [address] [place] [address] [address], [id number], [place] tel:[phone] CVR - [facility] Chronic venous hypertension (idiopathic) with other complications of bilateral lower extremity 4 Justin NAPIER RVT, RAJAT Benitez. [address] [place] [address], [place], [place], [id number] , [place]. tel:[phone] Referring Provider: Muriel Rebolledo MD, [address] [place] [address] , [address] [place] [address] D/B/A: [place], [address]. tel:[phone] Family History Family Member Type Diagnosis Age At Onset No Information Payers Payer name Insurance type Covered constitution party ID Authorodella yelitza(s) [facility] [id number] Social History Type Description Quantity Date Captured [...] Information Instructions Date Instruction Additional Infor mation Diet education Related to Body mass index [...] bilateral lower extremity Pre and post instruc beth reviewed and provided Related to Chronic venous hypertension (idiopathic) without complications of bilateral lower extremity Lifestyle education Related to B rebecca mass index (BMI) 35.0-35.9, adult Assessments Type Assessment Date No Information Patient Care Teams Name Effective Dates (start - stop) Status Members No Information
== END 2024-11-08 11:46 | disposition home or self-care (01) ==
PROVIDERS: PCP Internal Medicine
DX: R10.2 Pelvic and perineal pain (principal)

== ENCOUNTER → 2024-11-08 10:52 | Outpatient (BNVA) | payer OTHER, SELFPAY | PROVIDERS: PCP Internal Medicine | DX: R10.2 Pelvic and perineal pain (principal) | CPT/HCPCS: 96127 ==

== ENCOUNTER 2025-01-15 08:25 | Outpatient (AMB) | payer OTHER, SELFPAY ==
--- NOTE | 2025-01-15 09:50 | MHC.OFFVIS ---
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 Hip pain Migraines Fibromyalgia Urticaria DISH (disseminated idiopathic skeletal hyperostosis) Anxiety Hiatal hernia GERD (gastroesophageal reflux disease) History of lupus Asthma Surgical History Status post right breast lumpectomy (01/25/23) History of surgery Hx of cholecystectomy Hx of arthroscopy of knee Hx of gastric bypass History of esophagogastroduodenoscopy (EGD) Family History Father CVD (cardiovascular disease), Onset Age: 65 Mother Hypertension Rheumatoid arthritis Lupus Maternal Grandmother CAD (coronary artery disease) Diabetes Maternal Grandfather CAD (coronary artery disease) Diabetes Family/Other FH: mental illness Mental health disorder Paternal Aunt No problems noted. Brother Diabetes Hypertension Social History Household Members: Family Housing: House Are you a primary ambulatory care to a significant other at home: No Do you presently have visiting nurse or other home services: No Alcohol intake: current Alcohol intake frequency: holidays/special occasions only Alcohol type: hard liquor Patient Tobacco Use Status: Never used Tobacco e-Cigarette/Vaping Use: Never Used Second Hand Smoke Exposure: No service: No Current occupational status: employed Current occupational exposures/hazards: No Cognitive needs: No Hearing needs: No Vision needs: Yes Results AMB Urinalysis, Automated UA Leukoctes 0 Nesha/uL Last Edit by Nidia Seth on 01/15/25 14:09 UA Nitrite Negative Last Edit by Nidia Seth on 01/15/25 14:09 UA Urobilinogen 3.5 mg/dL Last Edit by Nidia Seth on 01/15/25 14:09 UA Protein 0 mg/dL Last Edit by Nidia Seth on 01/15/25 14:09 UA pH 6.0 Last Edit by Nidia Seth on 01/15/25 14:09 UA Blood 200 Jason/uL Last Edit by Nidia Seth on 01/15/25 14:09 UA Specific [place] 1.010 Last Edit by Nidia Seth on 01/15/25 14:09 UA Ketone Negative Last Edit by Nidia Seth on 01/15/25 14:09 UA Bilirubin 0 mg/dL Last Edit by Nidia Seth on 01/15/25 14:09 UA Glucose 0 mg/dL Last Edit by Nidia Seth on 01/15/25 14:09 Assessment & Plan Assessment & Plan Orders: Orders AMB Urinalysis Automated Today Z13.9 - Encounter for screening, unspecified Coding
== END 2025-01-15 10:35 | disposition left against medical advice (07) ==
LOC: HO.HUSH 08:26
PROVIDERS: PCP Internal Medicine; Visit Provider Urology
DX: Z13.9 Encounter for screening, unspecified (principal)

== ENCOUNTER → 2025-01-15 08:25 | Outpatient (BNVA) | payer OTHER, SELFPAY | PROVIDERS: PCP Internal Medicine; Visit Provider Urology | DX: Z53.20 Procedure and treatment not carried out because of patient's decision for unspecified reasons (principal) | CPT/HCPCS: 81003 ==

== ENCOUNTER 2025-01-18 12:12 | Outpatient (AMB) | payer OTHER, SELFPAY ==
--- NOTE | 2025-01-18 12:35 | A.OFFVIS_ITS ---
Vital Signs 01/18/25 12:37 Height 5 ft 3 in Weight 192 lb 3.889 oz BMI 34.1 BP 134/74 Blood Pressure Location Lt brachial Position Sitting Pulse 97 Pulse Source Pulse Oximeter Pulse Oximetry (%) 99 Oxygen Delivery Method Room Air Intake Visit Reasons: FOLLOW UP Intake Note: Patient last seen by Doctor Kinjal Mejia on 09/19/24. Patient presents for follow up. Patient complains the pain is not getting any better with the medication she is on. Allergies ondansetron Adverse Reaction (Intermediate, Verified 01/18/25 12:39) agitation sumatriptan [SUMATRIPTAN] Adverse Reaction (Intermediate, Verified 01/18/25 12:39) PALPITATIONS Medication List - Last Reconciled 01/18/25 by Kinjal Mejia MD albuterol sulfate 2.5 mg (3 mL) inhalation Q4-6H PRN albuterol sulfate 90 mcg/actuation 2 inhalations inhalation Q6H PRN 30 days alcohol swabs (Alcohol Prep Pads) topically 2 times a day; amitriptyline 10 mg PO BEDTIME 90 days blood sugar diagnostic (FreeStyle Lite Strips) USE DIRECTED 2 TIMES A DAY blood-glucose meter (FreeStyle Lite Meter kit) Twice a day budesonide-formoterol 160-4.5 mcg/actuation (Symbicort) 2 puffs inhalation BID 30 days cyclobenzaprine 10 mg PO DAILY duloxetine 60 mg PO BID 90 days fluticasone propionate 50 mcg/actuation 2 sprays intranasal DAILY ipratropium-albuterol 20-100 mcg/actuation (Combivent Respimat) 1 puff inhalation Q6H 30 days lancets (FreeStyle Lancets) To times a day lansoprazole 30 mg PO DAILY 90 days milnacipran 25 mg PO BID nabumetone 750 mg PO BID nebulizers As directed ondansetron 8 mg PO Q8H PRN 7 days promethazine 12.5 mg PO TID PRN 4 days rimegepant (Nurtec ODT) 75 mg PO DAILY sucralfate (Carafate) 10 mL PO BID 30 days tramadol 100 mg (2 x 50 mg) PO Q6H PRN 30 days Ventolin HFA 90 mcg/actuation (albuterol sulfate) 2 puffs inhalation Q6H PRN 30 days NS Is last menstrual period known: Yes Last menstrual period: 12/16/24 HPI Comments Details: Patient is a 44-year-old female with mild persistent asthma, status post gastric bypass complicated by recurrent hypoglycemia currently undergoing workup, fibromyalgia, DISH who presents for follow-up Interval History: Patient last seen 09/2024 with me. At that time she was reestablishing care for the management of fibromyalgia. She has tried gabapentin, pregabalin, duloxetine with no improvement. After a long discussion with the patient about fibromyalgia we decided to try milnacipran. Today patient is here for follow up. She continues to complain of whole-body pain. 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 Hip pain Migraines Fibromyalgia Urticaria DISH (disseminated idiopathic skeletal hyperostosis) Anxiety Hiatal hernia GERD (gastroesophageal reflux disease) History of lupus Asthma Surgical History Status post right breast lumpectomy (01/25/23) History of surgery Hx of cholecystectomy Hx of arthroscopy of knee Hx of gastric bypass History of esophagogastroduodenoscopy (EGD) Family History Father CVD (cardiovascular disease), Onset Age: 65 Mother Hypertension Rheumatoid arthritis Lupus Maternal Grandmother CAD (coronary artery disease) Diabetes Maternal Grandfather CAD (coronary artery disease) Diabetes Family/Other FH: mental illness Mental health disorder Paternal Aunt No problems noted. Brother Diabetes Hypertension Social History Household Members: Family Housing: House Are you a primary palliative care specialist to a significant other at home: No Do you presently have visiting nurse or other home services: No Alcohol intake: current Alcohol intake frequency: holidays/special occasions only Alcohol type: hard liquor Patient Tobacco Use Status: Never used Tobacco e-Cigarette/Vaping Use: Never Used Second Hand Smoke Exposure: No service: No Current occupational status: employed Current occupational exposures/hazards: No Cognitive needs: No Hearing needs: No Vision needs: Yes Female Reproductive History Menstrual Date of last menstrual period: 12/16/24 Review of Systems Const Details: Review of Systems Constitutional: Denies fever, chills, weight loss ENT: Denies vision changes, eye pain or eye redness, dental caries, dry mouth GI: Denies nausea, vomiting, diarrhea, abdominal pain, change in BM Pulm: Denies SOB, CAPPS, hemoptysis, wheezing Cards: Denies chest pain, palpitations Skin: Denies Raynaud's, rash, nail changes, photosensitivity, [employer]: Denies headaches, weakness, paresthesias, recurrent falls MSK: as per HPI All other systems reviewed and are unremarkable except noted above Physical Exam Vital Signs: Last Vital Signs Pulse 97 01/18/25 12:37 BP 134/74 01/18/25 12:37 Pulse Ox 99 01/18/25 12:37 Oxygen Delivery Method Room Air 01/18/25 12:37 BMI result Body Mass Index 34.1 Physical Examination CONSTITUITIONAL Patient alert and cooperative. Well appearing and in no apparent painful distress HEENT Conjunctiva and sclera clear. ?Pupils equal round and reactive to light. ?No lymphadenopathy. CHEST/RESPIRATORY SYSTEM Normal respiratory effort and able to speak in complete sentences. ?Clear to auscultation bilaterally. ?No crackles, rales, rhonchi, wheezes heard. CARDIAC SYSTEM Regular rate and rhythm. ?S1 and S2 heard no murmurs. ?Radial pulses intact bilaterally MSK Hands: ?Good automatic clipper strength bilaterally - 5/5. ?No deformities noted. ?No synovitis noted to the MCPs, PIPs or DIPs. ?No tenderness to palpation of these joints. Wrists: ?Full range of motion at the wrists without pain. ?No tenderness to palpation or synovitis noted to the wrists. Elbows: Full range of motion without pain. No tenderness, weakness, swelling, increased warmth or erythema. Shoulders: Decreased active range of motion. Normal passive range of motion. Hips: Full range of motion without pain. Hip bursa: Bilateral tenderness to palpation Knees: ?Full range of motion. ?No tenderness, swelling, increased warmth or erythema.?No effusion or crepitations Tender points:??Tenderness to palpation of the neck, shoulders, chest, elbows, hips, buttocks or knees. SKIN Skin intact without rashes. Results Reviewed Results Reviewed: Laboratory Tests 04/05/19 11/06/19 01/05/24 14:40 08:35 08:50 WBC RBC Hgb Hct Plt Count Sodium 140 Potassium 4.3 Chloride 105 Carbon Dioxide 29 BUN 15 Creatinine 0.66 Rheumatoid Factor < 15.0 Cycl Citrul Peptide IgG <16 ALAN Screen Negative 05/24/24 13:06 WBC 3.4 L RBC 4.27 Hgb 13.2 Hct 40.9 Plt Count 196 Sodium Potassium Chloride Carbon Dioxide BUN Creatinine Rheumatoid Factor Cycl Citrul Peptide IgG ALAN Screen Assessment & Plan Assessment & Plan (1) Fibromyalgia: Code(s): M79.7 - Fibromyalgia Category: Medical Plan: #Fibromyalgia Patient is a 44-year-old female with fibromyalgia here today for follow up. Unfortunately adding milnacipran to her regimen did not help. I discussed with the patient that we have currently reach the limits of therapeutic options for fibromyalgia. She was tried and failed gabapentin, pregabalin, duloxetine and milnacipran. Currently she is on Flexeril, tramadol and nabumetone with some relief. I have no further recommendations for this patient's pain management Plan - no further recommendations for patient's pain management - RTC prn - Refills per primary and pain management Plan I spent 30 minutes reviewing the record and labs, seeing the patient, discussing the treatment plan and documenting in the medical record ? Medications: Discontinued milnacipran Start by taking 1 tablet at night for two weeks then increase to 1 tablet twice a day. Discontinued Reason: Doctor's Order 25 mg PO BID 90 tabs 1RF M79.7 - Fibromyalgia Coding Level of Care Code Est Pt Level 3 (09957) Diagnoses Fibromyalgia M79.7
[2025-01-18 12:37] VITALS: BP 134/74; PULSE 97; O2SAT 99; BMI 34.1
--- OUTSIDE RECORDS SUMMARY | 2025-01-18 13:25 | XMS_ITS | Clinical Summary ---
Author Organization [facility] Address [address] [place] [address] Phone Care Team Providers Care Dredge Master Name Role Phone Muriel Julian MD Primary Care Provider [phone] Allergies Active Allergy Reactions Criticality Noted Date Comments Benzoin 03/16/2018 Medications No known medications Encounters Date Type Department Care Team Description 10/31/2024 2:03 PM EST - 10/31/2024 5:40 PM EST Emergency [facility] Emergency [address] [place] [address] Acute cystitis without hematuria (Primary Dx) Discharge Disposition: Home or Self Care from Last 3 Months Surgical History Surgery Date Site/Laterality Comments GASTRIC BYPASS PROCEDURE: [place] GASTRIC RSTCV W/BYP W/SM INT RCNSTJ LIMIT ABSRPJ; COMMENT: surgeon Dr. Torres- [phone] OTHER SURGICAL HISTORY PROCEDURE: [place] OPEN TX KNEE DISLOCATION W/REPAIR/RECONSTRUCTION CHOLECYSTECTOMY PROCEDURE: [place] CHOLECYSTECTOMY Medical History Medical History Date Comments [...] drink = 0.6 oz pur e alcohol) Comments Unknown Sex and Gender Information Value Date Recorded Sex Assigned at Not on file Legal Sex Female 11:35 PM EST Gender Identity Not on file Sexual Orientation Not on file Obstetrics History Last Filed Vital Signs Vital [...] Last Done Comments Breast Cancer Screening 1980 DTaP,Tdap,and Td Vaccines (1 - Tdap) 1999 Hepatitis B Vaccines (1 of 3 - 19+ 3-dose series) 1999 Pneumococcal Vaccine: Pediatrics (0 to 5 Years) and At-Risk Patients (6 to 64 Years) (1 of 2 - PCV) 1999 Depression Screening 09/20/2022 HIV Screening 09/20/2022 Hepatitis C Screening 09/20/2022 Social Influencers of Health Screening 09/20/2022 Cervical Cancer Screening: P ap Smear 06/13/2024 06/13/2021 COVID-19 Vaccine ( - 2023-2 5 season) 2024 12/28/2020, 12/05/2020 [...] patient's age to complete this topic Meningococcal B Vacine Aged Out No lo nger eligible based on patient's age to complete [...] for age. No adnexal masses. Telerad LIGIA ([id number]) -------- FINAL REPORT -------- Dictated By: Tran Nielsen Dictated Date: 10/31/2024 16:07 ET Assigned Physician: Tran Nielsen Reviewed and Electronically Signed By: Tran Nielsen Signed Date: 10/31/2024 16:10 ET Workstation ID: [id number] Transcribed By: Self Edit Transcribed Date: 10/31/2024 [...] for age. No adnexal masses. Amena STRONG ([id number]) -------- FINAL REPORT -------- Dictated By: Tran Nielsen Dictated Date: 10/31/2024 16:07 ET Assigned Physician: Tran Nielsen Reviewed and Electronically Signed By: Tran Nielsen Signed Date: 10/31/2024 16:10 ET Workstation ID: [id number] Transcribed By: Self Edit Transcribed Date: 10/31/2024 16:07 ET Fadia STRONG IMG US PROCEDURES Final Result * (ABNORMAL) Urinalysis with reflex microscopic and culture (10/31/2024 2:17 PM EST) Specific [place] Urine 1.023 1.003 - 1.030 LAB URINALYSIS - AUTOMATED METHOD 10/31/2024 2:57 PM [facility] pH, Urine 6.5 5.0 - 8.0 pH LAB URINALYSIS - AUTOMATED METHOD 10/31/2024 2:57 PM [facility] Leukocytes, Urine Trace(A) Negative LAB URINALYSIS - AUTOMATED METHOD 10/31/2024 2:57 PM [facility] Nitrite, Urine Negative Negative LAB URINALYSIS - AUTOMATED METHOD 10/31/2024 2:57 PM [facility] Protein, Urine Negative <=Trace mg/dL LAB URINALYSIS - AUTOMATED METHOD 10/31/2024 2:57 PM [facility] Glucose, Urine Negative Negative mg/dL LAB URINALYSIS - AUTOMATED METHOD 10/31/2024 2:57 PM [facility] Ketones, Urine Trace(A) Negative mg/dL LAB URINALYSIS - AUTOMATED METHOD 10/31/2024 2:57 PM [facility] Urobilinogen , Urine 1.0 0.2 - 1.0 mg/dL LAB URINALYSIS - AUTOMATED METHOD 10/31/2024 2:57 PM [facility] Bilirubin, Urine Negative Negative LAB URINALYSIS - AUTOMATED METHOD 10/31/2024 2:57 PM [facility] Blood, Urine Negative Negative LAB URINALYSIS - AUTOMATED METHOD 10/31/2024 2:57 PM [facility] RBC, Urine 2.0 0 - 4 /HPF LAB URINALYSIS - AUTOMATED METHOD 10/31/2024 2:57 PM [facility] WBC, Urine 0.7 0 - 4 /HPF LAB URINALYSIS - AUTOMATED METHOD 10/31/2024 2:57 PM [facility] Squamous Epithelial, Urine >100(H) 0 - 60 /LPF LAB URINALYSIS - AUTOMATED METHOD 10/31/2024 2:57 PM [facility] Bacteria, Urine Moderate(A) Negative /HPF LAB URINALYSIS - AUTOMATED METHOD 10/31/2024 2:57 PM [facility] Hyaline Casts, Urine 2.0 0 - 3 /LPF LAB URINALYSIS - AUTOMATED METHOD 10/31/2024 2:57 PM [facility] Urine Urine specimen obtained by clean catch procedure / Unknown Non-blood Collection / Unknown 10/31/2024 2:17 PM EST 10/31/2024 2:30 PM EST us Juancarlos Reddy DO LAB URINE ORDERABLES Final Result [facility] [address] [place] [address], * Hope urine culture tube (10/31/2024 2:17 PM EST) Extra Tube Hold for add-ons. 10/31/2024 4:02 PM EST [facility] Comment:Auto resulted. Urine Urine specimen obtained by clean catch procedure / Unknown Non-blood Collection / Unknown 10/31/2024 2:17 PM EST 10/31/2024 2:30 PM EST Juancarlos Reddy DO LAB URINE ORDERABLES Final Result Performing Organization Address City/[facility]/ZIP Co de Phone Number [facility] [address] [place] [address], [place] [phone] * Culture urine (10/31/2024 2:17 PM EST) Culture, Urine No growth 11/01/2024 10:21 AM [facility] Urine Urine specimen obtained by clean catch procedure / Unknown Non-blood Collection / Unknown 10/31/2024 2:17 PM EST 10/31/2024 2:57 PM EST Juancarlos Reddy DO [facility] MICROBIOLOGY - GENERAL ORDERABLES Final Result Performing Organization Address City/[facility]/ZIP Co de Phone Number [facility] [address] [place] [address], [place] [phone] * (ABNORMAL) CBC auto differential (10/31/2024 11:44 AM EST) WBC 3.8(L) 4.8 - 10.8 K/mcL LAB HEMETOLOGY METHOD 10/31/2024 12:06 PM [facility] RBC 4.50 3.80 - 4.80 M/mcL LAB HEMETOLOGY METHOD 10/31/2024 12:06 PM [facility] Hemoglobin 13.5 11.5 - 16.0 g/dL LAB HEMETOLOGY METHOD 10/31/2024 12:06 PM [facility] Hematocrit 44.1 35.0 - 47.0 % LAB HEMETOLOGY METHOD 10/31/2024 12:06 PM [facility] MCV 97.6 79.0 - 98.0 FL LAB HEMETOLOGY METHOD 10/31/2024 12:06 PM [facility] MCH 29.9 27.0 - 32.0 pcg LAB HEMETOLOGY METHOD 10/31/2024 12:06 PM [facility] MCHC 30.6(L) 32.0 - 37.0 g/dL LAB HEMETOLOGY METHOD 10/31/2024 12:06 PM [facility] RDW 13.0 11.0 - 15.0 % LAB HEMETOLOGY METHOD 10/31/2024 12:06 PM [facility] Platelets 209 130 - 400 K/mcL LAB HEMETOLOGY METHOD 10/31/2024 12:06 PM [facility] MPV 12.0(H) 7.0 - 11.0 FL LAB HEMETOLOGY METHOD 10/31/2024 12:06 PM [facility] NRBC 0.0 <1.0 % LAB HEMETOLOGY METHOD 10/31/2024 12:06 PM [facility] NRBC Absolute 0.00 <0.10 K/mcL LAB HEMETOLOGY METHOD 10/31/2024 12:06 PM [facility] Neutrophils Relative 43.2 % LAB HEMETOLOGY METHOD 10/31/2024 12:06 PM [facility] Lymphocytes Relative 45.3 % LAB HEMETOLOGY METHOD 10/31/2024 12:06 PM [facility] Monocytes Relative 9.7 % LAB HEMETOLOGY METHOD 10/31/2024 12:06 PM [facility] Eosinophils Relative 1.0 % LAB HEMETOLOGY METHOD 10/31/2024 12:06 PM [facility] Basophils Relative 0.8 % LAB HEMETOLOGY METHOD 10/31/2024 12:06 PM [facility] Immature Granulocytes Relative 0.0 % LAB HEMETOLOGY METHOD 10/31/2024 12:06 PM [facility] Neutrophils Absolute 1.65 1.50 - 7.00 K/mcL LAB HEMETOLOGY METHOD 10/31/2024 12:06 PM [facility] Lymphocytes Absolute 1.73 1.00 - 5.00 K/mcL LAB HEMETOLOGY METHOD 10/31/2024 12:06 PM [facility] Monocytes Absolute 0.37 0.20 - 1.00 K/mcL LAB HEMETOLOGY METHOD 10/31/2024 12:06 PM [facility] Eosinophils Absolute 0.04 0.00 - 0.50 K/mcL LAB HEMETOLOGY METHOD 10/31/2024 12:06 PM [facility] Basophils Absolute 0.03 0.00 - 0.20 K/mcL LAB HEMETOLOGY METHOD 10/31/2024 12:06 PM [facility] Immature Granulocytes Absolute 0.00 0.00 - 0.03 K/mcL LAB HEMETOLOGY METHOD 10/31/2024 12:06 PM [facility] Blood Venous blood specimen / Unknown Venipuncture / Unknown 10/31/2024 11:44 AM EST 10/31/2024 11:58 AM EST us Juancarlos Reddy DO LAB BLOOD ORDERABLES Final Result [facility] [address] [place] [address], * Comprehensive metabolic panel (10/31/2024 11:44 AM EST) Sodium 138 133 - 145 mmol/L LAB CHEMISTRY METHOD 10/31/2024 12:28 PM EST [facility] Potassium 4.2 3.5 - 5.5 mmol/L LAB CHEMISTRY METHOD 10/31/2024 12:28 PM [facility] Chloride 104 96 - 110 mmol/L LAB CHEMISTRY METHOD 10/31/2024 12:28 PM [facility] CO2 30 21 - 32 mmol/L LAB CHEMISTRY METHOD 10/31/2024 12:28 PM [facility] Anion Gap 4 3 - 11 LAB CHEMISTRY METHOD 10/31/2024 12:28 PM [facility] Glucose 98 70 - 100 mg/dL LAB CHEMISTRY METHOD 10/31/2024 12:28 PM [facility] BUN 17 5 - 25 mg/dL LAB CHEMISTRY METHOD 10/31/2024 12:28 PM [facility] Creatinine 0.67 0.50 - 1.10 mg/dL LAB CHEMISTRY METHOD 10/31/2024 12:28 PM [facility] eGFR 111 >=60 mL/min/1. 73m2 LAB CHEMISTRY METHOD 10/31/2024 12:28 PM [facility] Comment:Calculation based on the??Chronic Kidney Disease Epidemiology Collaboration (CKD-EPI) equation refit??without adjustment for race. BUN/Creatinine Ratio 25.4 LAB CHEMISTRY METHOD 10/31/2024 12:28 PM [facility] Calcium 9.3 8.5 - 10.5 mg/dL LAB CHEMISTRY METHOD 10/31/2024 12:28 PM [facility] AST (SGOT) 15 10 - 42 unit/L LAB CHEMISTRY METHOD 10/31/2024 12:28 PM [facility] ALT (SGPT) 21 10 - 60 unit/L LAB CHEMISTRY METHOD 10/31/2024 12:28 PM [facility] Alkaline Phosphatase 71 42 - 121 unit/L LAB CHEMISTRY METHOD 10/31/2024 12:28 PM [facility] Total Protein 7.7 6.0 - 8.0 g/dL LAB CHEMISTRY METHOD 10/31/2024 12:28 PM [facility] Albumin 3.8 3.2 - 5.0 g/dL LAB CHEMISTRY METHOD 10/31/2024 12:28 PM EST [facility] Total Bilirubin 0.4 0.0 - 1.4 mg/dL LAB CHEMISTRY METHOD 10/31/2024 12:28 PM EST [facility] Blood Venous blood specimen / Unknown Venipuncture / Unknown 10/31/2024 11:44 AM EST 10/31/2024 11:58 AM EST Juancarlos Reddy DO LAB BLOOD ORDERABLES Final Result [facility] [address] [place] [address], [place] [phone] * Pap smear (06/13/2021) 06/13/2021 Narrative HISTORICAL TESTING LAB RESULTING AGENCY - 06/24/2021 7:40 AM EDT [id number] THINPREP PAP, IMAGED: NEGATIVE FOR SQUAMOUS INTRAEPITHELIAL [...] ANY DIAGNOSIS. HORMONES, LMP 05/11/2021, Z12.4 Mariana IZQUIERDO LAB CYTOLOGY ORDERABLES Final Result HISTORICAL TESTING LAB RESULTING AGENCY from Last 3 Months or Most Recently Relevant to Health Maintenance Insurance [facility] Care Teams Dredge Master Relationship Specialty Start Date End Date Muriel Julian MD [address] [place] [address] , [address] [facility] D/B/A: [facility] ELEAZAR Castro PCP - General Internal Medicine 02/15/18
== END 2025-01-18 13:16 | disposition home or self-care (01) ==
LOC: HO.RHE 12:13
PROVIDERS: PCP Internal Medicine; Visit Provider Student in an Organized Health Care Education/Training Program
DX: M79.7 Fibromyalgia (principal)
CPT/HCPCS: 99213

== ENCOUNTER 2025-02-20 16:25 | Outpatient (AMB) | payer OTHER, SELFPAY ==
--- NOTE | 2025-02-20 16:27 | A.OFFPC_ITS ---
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: No Accompanied by: Self / Same As Patient Allergies ondansetron Adverse Reaction (Intermediate, Verified 02/20/25 16:38) agitation sumatriptan [SUMATRIPTAN] Adverse Reaction (Intermediate, Verified 02/20/25 16:38) PALPITATIONS Medication List - Last Reconciled 02/20/25 by Muriel Julian MD albuterol sulfate 2.5 mg (3 mL) inhalation Q4-6H PRN albuterol sulfate 90 mcg/actuation 2 inhalations inhalation Q6H PRN 30 days alcohol swabs (Alcohol Prep Pads) topically 2 times a day; amitriptyline 10 mg PO BEDTIME 90 days blood sugar diagnostic (FreeStyle Lite Strips) USE DIRECTED 2 TIMES A DAY blood-glucose meter (FreeStyle Lite Meter kit) Twice a day budesonide-formoterol 160-4.5 mcg/actuation (Symbicort) 2 puffs inhalation BID 30 days cyclobenzaprine 10 mg PO DAILY duloxetine 60 mg PO BID 90 days fluticasone propionate 50 mcg/actuation 2 sprays intranasal DAILY ipratropium-albuterol 20-100 mcg/actuation (Combivent Respimat) 1 puff i nhalation Q6H 30 days lancets (FreeStyle Lancets) To times a day lansoprazole 30 mg PO DAILY 90 days nabumetone 750 mg PO BID nebulizers As directed ondansetron 8 mg PO Q8H PRN 7 days promethazine 12.5 mg PO TID PRN 4 days rimegepant (Nurtec ODT) 75 mg PO DAILY sucralfate (Carafate) 10 mL PO BID 30 days tramadol 100 mg (2 x 50 mg) PO Q6H PRN 30 days Ventolin HFA 90 mcg/actuation (albuterol sulfate) 2 puffs inhalation Q6H PRN 30 days NS Tobacco use date assessed: 11/08/24 Dental Screening Dental Screen Date: 11/08/24 HPI HPI Comments History of Present Illness Details The patient is a 44-year-old female presenting with chronic wrist and hip pain, depression, and management of reactive hypoglycemia. The pain in her right wrist and left hip has been ongoing for two weeks, impacting her quality of life and daily function, particularly during movement. She describes the pain as severe and reports an occasional spread to other areas. She experiences depression intermittently, which has worsened over the past few days. Her medical history is significant for reactive hypoglycemia, which has caused significant lifestyle impacts due to fluctuating blood sugar levels despite non-diabetic status. The patient has noted adverse reactions to Ondansetron and Triptan, limiting their usage. She occasionally uses Symbicort for asthma but often feels overwhelmed by the number of medications she possesses at home, affecting her compliance and overall health management. 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 Hip pain Migraines Fibromyalgia Urticaria DISH (disseminated idiopathic skeletal hyperostosis) Anxiety Hiatal hernia GERD (gastroesophageal reflux disease) History of lupus Asthma Surgical History Status post right breast lumpectomy (01/25/23) History of surgery Hx of cholecystectomy Hx of arthroscopy of knee Hx of gastric bypass History of esophagogastroduodenoscopy (EGD) Family History Father CVD (cardiovascular disease), Onset Age: 65 Mother Hypertension Rheumatoid arthritis Lupus Maternal Grandmother CAD (coronary artery disease) Diabetes Maternal Grandfather CAD (coronary artery disease) Diabetes Family/Other FH: mental illness Mental health disorder Paternal Aunt No problems noted. Brother Diabetes Hypertension Social History Household Members: Family Housing: House Are you a primary animal daycare provider to a significant other at home: No Do you presently have visiting nurse or other home services: No Alcohol intake: current Alcohol intake frequency: holidays/special occasions only Alcohol type: hard liquor Patient Tobacco Use Status: Never used Tobacco e-Cigarette/Vaping Use: Never Used Second Hand Smoke Exposure: No service: No Current occupational status: employed Current occupational exposures/hazards: No Cognitive needs: No Hearing needs: No Vision needs: Yes Questionnaire PHQ-9 Over the last 2 weeks, how often have you been bothered by any of the following problems? 1. Little interest or pleasure in doing things: several days 2. Feeling down, depressed, or hopeless: several days 3. Trouble falling or staying asleep, or sleeping too much: more than half the days 4. Feeling tired or having little energy: more than half the days 5. Poor appetite or overeating: several days 6. Feeling bad about yourself - or that you are a failure or have let yourself or your family down: not at all 7. Trouble concentrating on things, such as reading the newspaper or watching television: not at all 8. Moving or speaking so slowly that other people could have noticed. Or the opposite - being so fidgety or restless that you have been moving around a lot more than usual: not at all 9. Thoughts that you would be better off or of hurting yourself in some way: several days Total score: 8 Depression Screening Interpretation: Positive Depression Screening Follow-up: Existing condition, In treatment and Follow-up Visit Requested Depression Screening Done: Yes 71961 - PHQ-9 Billing: Yes Source: Developed by Drs. Emmanuel Chatterjee, Krysten Matamoros, Cameron Hanley and colleagues, with an educational kaitlin from [employer]. Thrive Questionnaire Date Thrive assessed: 02/20/25 I am a: Patient What is your living situation today?: I have a steady place to live Within the past 12 months, did the food you bought not last and you didn't have the money to get more?: Sometimes True Within the past 12 months, did you worry whether your food would run out before you got money to buy more?: Never true Do you have trouble paying for medicines?: I choose not to answer this question Do you have trouble getting transportation to medical appointments?: No Do you have trouble paying your heating and electricity bill?: Yes Do you have trouble taking care of your child, family member or friend?: No Do you have trouble with day-to-day activities such as bathing, preparing meals, shopping, managing finances, etc.?: No Are you currently unemployed and looking for a job?: No Are you interested in more education?: No Please select the resources that you would like help with: None Currently or been in a relationship where the following occur: I choose not to answer THRIVE Score: 2 AUDIT C Alcohol Use Questionnaire (AUDIT-C) 1. How often do you have a drink containing alcohol?: Monthly or less 2. How many drinks containing alcohol do you have on a typical day when you are drinking?: 3 or 4 3. How often do you have six or more drinks on one occasion?: Never Total Score: 2 Score Reviewed/Action Taken: No JOSEPHINE-7 AMB Questionnaire JOSEPHINE-7 Date JOSEPHINE - 7 assessed: 02/20/25 Feeling nervous, anxious, or on edge: 1 = Several days Not being able to stop or control worryin = Several days Worrying too much about different things: 0 = Not at all Trouble relaxin = Several days Being so restless that it is hard to sit still: 0 = Not at all Becoming easily annoyed or irritable: 1 = Several days Feeling afraid as if something awful might happen: 0 = Not at all Total JOSEPHINE-7 score (0-4 normal; 5-9 mild; 10-14 moderate; 15-21 severe): 4 Source: Developed by Drs. Emmanuel Chatterjee, Krysten Matamoros, Cameron Hanley and colleagues, with an educational kaitlin from [employer]. JOSEPHINE-7 Assessment Billing JOSEPHINE-7 Assessment Tool: JOSEPHINE-7 Assessment 09218 Review of Systems Const All systems reviewed & are unremarkable except as noted in HPI and below Card Denies chest pain at rest, Denies chest pain with activity, Denies edema, Denies irregular heart rhythm, Denies claudication, Denies dyspnea, Denies dyspnea on exertion, Denies orthopnea, Denies paroxysmal nocturnal dyspnea and Denies slow heart rate Resp Denies cough, Denies dyspnea and Denies dyspnea on exertion Physical exam (Primary Care) Vital Signs: Last Vital Signs BP 136/82 02/20/25 16:28 BMI result Body Mass Index 33.5 BMI Assessment/Plan discussion: High BMI High, discussed plan: lifestyle, weight reduction, dietary and physical activity Tobacco/Smoking Status: Tobacco use Status Tobacco use date assessed 11/08/24 02/20/25 16:34 Patient Tobacco Use Status Never used Tobacco 02/20/25 16:34 e-Cigarette/Vaping Use Never Used 02/20/25 16:34 PHQ-9: PHQ-9 Score PHQ-9: Total score 8 02/20/25 17:22 Depression Screening Interpretation: Positive Depression Screening Follow-up: Existing condition, In treatment and Follow-up Visit Requested Thrive Assessment: Date of Thrive Assessment Date Thrive assessed 02/20/25 02/20/25 16:34 Currently or been in a relationship where the following occur: I choose not to answer Resp Effort & Inspection: normal respiratory effort Auscultation: clear to auscultation bilaterally Cardio Jugular venous distension: no JVD Rate: regular rate Rhythm: regular rhythm Heart sounds: S1 normal heart sound present and S2 normal heart sound present Extrem General: Yes full ROM Coding Level of Care Code Est Pt Level 4 (57784) Complex EM visit Add On G2211 Diagnoses Left hip pain M25.552 Right hand pain M79.641 Mild major depression F32.0 Reactive hypoglycemia E16.1 Fibromyalgia M79.7 Additional Codes JOSEPHINE-7 Assessment Billing - JOSEPHINE-7 Assessment Tool: JOSEPHINE-7 Assessment 11324 ([id number]) PHQ-9 - 83995 - PHQ-9 Billing: Yes ([id number]) Time Spent (min) 24 Assessment & Plan Assessment & Plan (1) Left hip pain: Code(s): M25.552 - Pain in left hip Category: Medical (2) Right hand pain: Code(s): M79.641 - Pain in right hand Category: Medical (3) Mild major depression: Code(s): F32.0 - Major depressive disorder, single episode, mild Category: Medical (4) Reactive hypoglycemia: Code(s): E16.1 - Other hypoglycemia Category: Medical (5) Fibromyalgia: Code(s): M79.7 - Fibromyalgia Category: Medical Plan Management plans were laid out for the patient's chronic wrist and hip pain, with imaging studies advised for further assessment. I discussed the need to manage her long list of medications due to her reactions to specific drugs, like Triptan and Ondansetron. Strategies for controlling reactive hypoglycemia, including dietary modifications and endocrinology follow-up, were emphasized. Options to address her depression were explored, encouraging proactive psychological intervention and potential medication adjustments if required. Patient was informed and verbally consented to the use of an ambient scribe for clinic note documentation during this visit. The session involved a detailed discussion with the patient about her health concerns, particularly emphasizing the chronic pain in her wrist and hip, strategies for managing her reactive hypoglycemia, and addressing her depressive episodes. I explained the importance of imaging for her musculoskeletal pain and clarified the need to rationalize her medication intake owing to adverse reactions. Options for improving her depression management were addressed, suggesting possible psychological support pathways or pharmacological adjustments if necessary. Plans stressed on were the need for dietary interventions for the hypoglycemia and an endocrinology referral for specialized input. Follow-up was encouraged to reassess her situation and adjust the management plan accordingly. Orders: Orders XR hand RT 2V Today M79.641 - Pain in right hand XR hip LT min 2V Today M25.552 - Pain in left hip Referrals V BELT SKIVER Referral Z12.4 - Encounter for screening for malignant neoplasm of cervix Medications: New pregabalin 75 mg PO BEDTIME 30 caps 0RF 30 days Patient Instructions: - Schedule imaging studies for wrist and hip - Monitor blood glucose levels closely, maintain a balanced diet - Reassess current medications, avoid those causing adverse reactions - Follow up with seismic interpreter for blood sugar management - Seek psychological support if depressive symptoms persist - Return for follow-up to evaluate progress and adjust treatment plan
[2025-02-20 16:28] VITALS: BP 136/82; BMI 33.5
--- OUTSIDE RECORDS SUMMARY | 2025-02-20 17:06 | XMS_ITS | Continuity of Care Document ---
Author Organization [facility] Address [address] [place] [address] [address] [place] [address] Phone Care Team Providers Care Real Estate Management Specialist Name Role Phone Justin NAPIER, RVT, RPVI, [...] Mins- [place] & [place] [facility], [address] [place] [address] Dr Sharif [address], [id number], [place] tel:[phone] CV[place] - [place] Localized edemaCramp and spasmRestless legs syndromePruri tus, unspecified 4 Justin NAPIER RVT, RAJAT Benitez. [address] [facility], [address], [place], [place], [id number] , [place]. tel:[phone] Referring Provider: Mureil Rebolledo MD, [address] [facility] , [address] [place] D/B/A: [place], [address]. tel:[phone] Office/Outpt E&M Established 15 Mins- [place] & [place] [facility], [address] [place] [address] [address] [place]y [place], [id number], [place] tel:[phone] [place] Chronic venous hypertension (idiopathic) without complications of bilateral lower extremityPrur itus, unspecified 4 Justin NAPIER RVT, RAJAT Benitez. [address] [facility], [address], [place], [place], [id number] , [place]. [phone] Referring Provider: Muriel Rebolledo MD, [address] [facility] , [address] [place] D/B/A: [place], [address]. tel:[phone] [facility], [address] [place] [address] [address] Antony [place], [id number], [place] tel:[phone] CVR - [facility] Chronic venous hypertension (idiopathic) with other complications of left lower extremity 4 Justin NAPIER RVT, RAJAT Benitez. [address] [facility], [address], [place], [place], [id number] , [place]. [phone] Referring Provider: Muriel Rebolledo MD, [address] [facility] , [address] [place] D/B/A: [place], [address]. tel:[phone] [facility], [address] [place] [address] [address] Antony [place]win [place], [id number], [place] tel:[phone] [place] Encounter for follow-up examination after completed treatment for conditions other than malignant nePain in left leg 4 Justin NAPIER RVT, RAJAT Benitez. [address] [facility], [address], [facility], [place], [id number] , [place]. tel: [phone] Referring Provider: Mruiel Rebolledo MD, [address] [facility] [address], [address] [place] D/B/A: [facility], [address]. tel:[phone] [facility], [address] [place] [address] [address], [id number], [place] tel:[phone] [place] Chronic venous hypertension (idiopathic) with inflammation of left lower extremity 4 Justin NAPIER RVT, RAJAT Benitez. [address] [facility], [address], [facility], [place], [id number] , [place]. tel: [phone] Referring Provider: Muriel Rebolledo MD, [address] [facility] [address], [address] [place] [address] D/B/A: [place], [address]. tel:[phone] [facility], [address] [place] [address] [address] Antony Goodwin [place], [id number], [place] tel:[phone] [place] - [place] Varicose veins of left lower extremity with other complications 4 Justin NAIPER RVT, RPVI Robert. [address] [facility], [address], [facility], [place], [id number] , [place]. tel:[phone] Referring Provider: Muriel Rebolledo MD, [address] [facility] [address], [address] [place] [address] D/B/A: [place], [address]. tel:[phone] [facility]as Villegas [facility], [address] [place] [address] [address], [id number], [place] tel:[phone] [place] No Information 4 Justin NAPIER RVT, RPVI Robert. [address] [facility], [address], [facility] [place], [id number] , [place]. tel:[phone] Office/Oupt E&M New Pt 45 Mins [facility], [address] [place] [address] [address], [id number], [place] tel:[phone] [place] - [place] Chronic venous hypertension (idiopathic) without complications of bilateral lower extremityPain in right lower legPain in left lower legPain in right legRestless legs syndromePruri tus, unspecifiedPa in in left legCramp and spasmLocalize d edema 4 Justin NAPIER RVT, RAJAT Benitez. [address] [place] [address], [place] [address], [place], [place], [id number] , [place]. tel:[phone] Referring Provider: Muriel Rebolledo MD, [address] [facility] , [address] [place] [address] D/B/A: [place], [address]. tel:[phone] [facility], [address] [place] [address] [address], [id number], [place] tel:[phone] CVR - [facility] Chronic venous hypertension (idiopathic) with other complications of bilateral lower extremity 4 Justin NAPIER RVT, RAJAT Benitez. [address] [place] [address], [place], [place], [id number] , [place]. tel:[phone] Referring Provider: Muriel Rebolledo MD, [address] [place] [address] , [address] [place] [address] D/B/A: [place], [address]. tel:[phone] Family History Family Member Type Diagnosis Age At Onset No Information Payers Payer name Insurance type Covered constitution party ID Authorodella yelitza(s) [facility] [id number] Social History Type Description Quantity Date Captured [...]
--- OUTSIDE RECORDS SUMMARY | 2025-02-20 17:06 | XMS_ITS | Clinical Summary ---
Author Organization [facility] Address [address] [place] [address] Phone Care Team Providers Care Rattlesnake Farmer Name Role Phone Muriel Julian MD Primary Care Provider [phone] Allergies Active Allergy Reactions Criticality Noted Date Comments Benzoin 03/16/2018 Medications No known medications Surgical History Surgery Date Site/Laterality Comments GASTRIC BYPASS PROCEDURE: GA GASTRIC RSTCV W/BYP W/SM INT RCNSTJ LIMIT ABSRPJ; COMMENT: surgeon Dr. Torres- [phone] OTHER SURGICAL HISTORY PROCEDURE: GA OPEN TX KNEE DISLOCATION W/REPAIR/RECONSTRUCTION CHOLECYSTECTOMY PROCEDURE: GA CHOLECYSTECTOMY Medical History Medical History Date Comments [...] P ap Smear 06/13/2024 06/13/2021 COVID-19 Vaccine (2023-2 5 season) 2024 12/28/2020, 12/05/2020 Influenza Vaccine (Season Ended) 2025 HIB Vaccines Aged Out No longer eligi [...] age to complete this topic Meningococcal B Vaccine Aged Out No l onger eligible based on patient's age to complete this topic RSV Immunization Patients Under 20 months Aged Out No longer eligible b ased on patient's age to complete this topic Varicella Vaccines Aged Out No longer eligible based on patient's age to complete this topic Procedures Procedure Name Priority Date/Time Associated Diagnosis Comments PAP SMEAR Routine 06/13/2021 from Last 3 Months or Most Recently Relevant to Health Maintenance Results * Pap smear (06/13/2021) 06/13/2021 Narrative HISTORICAL TESTING LAB RESULTING AGENCY - 06/24/2021 7:40 AM EDT [id number] THINPREP PAP, IMAGED: NEGATIVE FOR SQUAMOUS INTRAEPITHELIAL LESION AND MALIGNANCY . ABUNDANT PARTIALLY OBSCURING ACUTE INFLAMMATORY CELLS ARE PRESENT. CARLO HARRINGTON , ARACELI(ASCP) (CASE ELECTRONICALLY SIGNED 06 23 2021) RESULT [...] Most Recently Relevant to Health Maintenance Insurance [facility] Care Teams Rattlesnake Farmer Relationship Specialty Start Date End Date Muriel Julian MD 2 [facility] , [address] Physician Associ D/B/A: [facility]atied[facility] In Internal Medicine ELEAZAR Castro PCP - General Internal Medicine 02/15/18
== END 2025-02-20 16:51 | disposition home or self-care (01) ==
LOC: HO.HMCH 16:25
PROVIDERS: PCP Internal Medicine; Visit Provider Internal Medicine
DX: M25.552 Pain in left hip (principal); M79.641 Pain in right hand; F32.0 Major depressive disorder, single episode, mild; E16.1 Other hypoglycemia; M79.7 Fibromyalgia

== ENCOUNTER → 2025-02-20 16:25 | Outpatient (BNVA) | payer OTHER, SELFPAY | PROVIDERS: PCP Internal Medicine; Visit Provider Internal Medicine | DX: M25.552 Pain in left hip (principal); M79.641 Pain in right hand; F32.0 Major depressive disorder, single episode, mild; E16.1 Other hypoglycemia; M79.7 Fibromyalgia | CPT/HCPCS: 96127; 99212 ==

== ENCOUNTER 2025-10-03 08:01 | Outpatient (REF) | payer OTHER, SELFPAY ==
--- OUTSIDE RECORDS SUMMARY | 2024-07-06 04:45 | XMS_ITS | Continuity of Care Document ---
Author Organization [facility] Address [address] [place] [address] Dr [address] [place] [address] Phone Care Team Providers Care [facility] Sales Representative Name Role Phone Justin NAPIER, SERINA, Emmanuel EARL Unavailable U navailable Allergies, Adverse Reactions, Alerts Substance Reaction Status Criticality sumatriptan Active No Information Procedures Procedure Date Office/Outpt E&M Established 15 Mins- CT & [place] Advance Directives Directive Yes / No Effective Date File Name No Information Encounters Encounter Description Practice Location Reason(s) For Visit Diagnoses Date Provider Encounter Disposition Office/Outpt E&M Established 15 Mins- CT & [place] [facility], [address] [place] [address] Dr Sharif 1000SuAntony dupont MD, [id number], tel:[phone] [facility] Localized edemaCramp and spasmRestless legs syndromePruri tus, unspecified 4 Justin NAPIER RVT, RPVI Robert. [address] [place] [address], [place], [place], [id number] , [place]. tel:[phone] [facility], [address] [place] [address] Dr Sharif 1000SuAntony dupont [place], [id number], tel:[phone] [facility] Chronic venous hypertension (idiopathic) without complications of bilateral lower extremityPrur itus, unspecified 4 Justin NAPIER RVT, RPVI Robert. [address] [place] [address], [place], [place], [id number] , [place]. tel: [phone] [facility], [address] [place] [address] Dr Sharif [address]Antony [place], [id number], [place] tel:[phone] [facility] - [place] [facility] [place] Chronic venous hypertension (idiopathic) with other complications of left lower extremity 4 Justin NAPIER RVT, RAJAT Benitez. [address] [place] [address], [address], [facility], [place], [id number] , [place]. tel: [phone] [facility], [address] [place] [address] Dr Sharif [address]Suite Antony Goodwin [place], [id number], [place] tel:[phone] [facility] - [place] Encounter for follow-up examination after completed treatment for conditions other than malignant nePain in left leg 4 Justin NAPIER RVT, RPVI Robert. [address] [place] [address], [place] [address], [facility] [place], [id number] , [place]. tel: [phone] [facility], [address] [place] [address] Dr Sharif [address]Antony [place], [id number], [place] tel:[phone] [facility] [facility] [place] Chronic venous hypertension (idiopathic) with inflammation of left lower extremity 0 4 Justin NAPIER RVT, RAJAT Benitez. [address] [place] [address], [address], [facility] [place], [id number] , [place]. tel: [phone] [facility], [address] [place] [address] Dr Sharif [address] Antony Goodwin MD, [id number], [place] tel:[phone] CV[place] - [place] Varicose veins of left lower extremity with other complications 4 Justin NAPIER RVT, RPVI Robert. [address] [place] [address], [facility], [id number] , [place]. tel: [phone] [facility], [address] [place] [address] Dr Sharif 1000SuAntony dupont [place], [id number], [place] tel:[phone] CV[place] - [place] No Information 4 Justin NAPIER RVT, RAJAT Benitez. [address] [place] [address], [facility], [id number] , [place]. [phone] [facility], [address] [place] [address] Dr Sharif 1000alva 1000Antony [place], [id number], tel:[phone] [facility] Chronic venous hypertension (idiopathic) without complications of bilateral lower extremityPain in right lower legPain in left lower legPain in right legRestless legs syndromePruri tus, unspecifiedPa in in left legCramp and spasmLocalize d edema 4 Justin NAPIER RVT, RAJAT Benitez. [address] [place] [address], [place], [id number] , [place]. tel:[phone] [facility], [address] [place] [address] Dr Sharif 1000[facility] [address]y [place], [id number], [place] tel:[phone] [facility] Chronic venous hypertension (idiopathic) with other complications of bilateral lower extremity 4 Justin NAPIER RVT, RAJAT Benitez. [address] [place] [address], [place], [id number] , [place]. [phone] Family History Family Member Type Diagnosis Age At Onset No Information Payers Payer name Insurance type Identifiers Authorization(s) [facility] CI abi ID: [id number] Name: Coverage Status Eligibility Check on: [id number] nship to Subscriber: selfPayer Address: [facility] [id number], [place], [place], [id number], [facility] Phone: [phone] Social History Type Description Quantity Date Captured Comments Alcohol Use Details Unknown Caffeine Use Details Unknown Tobacco Use Status Current non-smoker Smoking Status Never Smoker Non-Smoking Tobacco Use Details : No Details Available : No Details Available Sex Female Current Gender Female (finding) Vital Signs Date / Time: Height Weight BMI Pulse Rate Blood Pressure Temperature Respiratory Rate Body Surface Area Head Circumference Head Circ. Percentile Wt./Ramos. Percentile BMI percentile Pulse Ox Inhaled Ox 89.810 kg (198.00 lbs) 35.1 3 kg/m eter (2) 138/86 mm[Hg] Chief Complaint And Reason For Visit No Information Plan Of Treatment Date Type Action Status Goal Diet education completed Goal Diet education completed Goal Diet education completed Referral Ordered: Weight management: Referral to physician timeframe: 3 Months (related to Body mass index (BMI) 35.0-35.9, adult) ordered Referral Ordered: Weight management: Referral to physician timeframe: 3 Months (related to Body mass index (BMI) 35.0-35.9, adult) ordered Referral Ordered: Weight management: Referral to physician timeframe: 3 Months (related to Body mass index (BMI) 35.0-35.9, adult) ordered History Of Present Illness Encounter Date Complaint History Of Prese nt Illness No Information Functional Status Date Description Comments No Information Instructions Date Instruction Additional Infor mation Compression stocking usage as conservative measure Related to Localized edema Pre and post instruc tions reviewed and provided Related to Localized edema Lifestyle education Related to B rebecca mass index (BMI) 35.0-35.9, adult Giving Encouragement to exercise Related to Body mass index (BMI) 35.0-35.9, adult Diet education Related to Body mass index (BMI) 35.0-35.9, adult Pre and post instruc tions reviewed and provided Related to Chronic venous hypertension (idiopathic) without complications of bilateral lower extremity Patient education booklet given Related to Chronic venous hypertension (idiopathic) without complications of bilateral lower extremity Lifestyle education Related to B rebecca mass index (BMI) 35.0-35.9, adult Giving Encouragement to exercise Related to Body mass index (BMI) 35.0-35.9, adult Diet education Related to Body mass index (BMI) 35.0-35.9, adult Lifestyle education Related to B rebecca mass index (BMI) 35.0-35.9, adult Pre and post instruc tions reviewed and provided Related to Chronic venous hypertension (idiopathic) without complications of bilateral lower extremity Patient education booklet given Related to Chronic venous hypertension (idiopathic) without complications of bilateral lower extremity Giving Encouragement to exercise Related to Body mass index (BMI) 35.0-35.9, adult Diet education Related to Body mass index (BMI) 35.0-35.9, adult Assessments Type Assessment Date No Information
--- NOTE | ~2025-10-03 | XR_ITS ---
EXAMINATION: XR HIP, LEFT CLINICAL INFORMATION: M25.552 - Pain in left hip COMPARISON: September 24, 2020 TECHNIQUE: AP pelvis. AP and oblique views of the left hip. FINDINGS: No acute fracture or dislocation, left coxofemoral joint. Mild sclerosis along the articular surface of the both acetabulum/acetabular. No lytic or blastic lesions. No metallic or radiopaque foreign body. No subcutaneous emphysema. XR/XR hip LT min 2V IMPRESSION: Mild osteoarthrosis/osteoarthritis, both hips. Electronically signed by: John Pedro MD 10/03/2025 10:44 AM ANUPAMA COOK
--- OUTSIDE RECORDS SUMMARY | 2025-10-03 08:05 | XMS_ITS | Clinical Summary ---
Author Organization [facility] Address [address] [address] Phone Care Team Providers Care Pipeline Executive Name Role Phone Muriel Meyer MD Primary Care Provid er Allergies Active Allergy Reactions Criticality Noted Date Comments Sumatriptan 08/23/2024 Medications albuterol 90 mcg/actuation inhaler Inhale 2 puffs into the lungs every 6 (six) hours as needed for wheezing. Active budesonide-for moterol 160-4.5 mcg/actuation inhaler Inhale 2 puffs into the lungs 2 (two) times a day. Active cyclobenzaprin e (FLEXERIL) 10 MG tablet Take 10 mg by mouth daily. Active DULoxetine (CYMBALTA) 60 MG capsule Take 60 mg by mouth daily. Active ferrous sulfate 325 mg (65 mg comanche iron) tablet Take 325 mg by mouth daily with breakfast. Active fluticasone propionate (FLONASE) 50 mcg/actuation nasal spray 1 spray by Nasal route daily. Active ipratropium-al buteroL (COMBIVENT RESPIMAT) 20-100 mcg/actuation Mist Inhale 1 puff into the lungs 4 (four) times a day. Active lansoprazole (PREVACID) 30 MG capsule Take 30 mg by mouth daily. Active metoclopramide HCl (REGLAN) 10 MG tablet Take 10 mg by mouth as needed for nausea. Active nabumetone (RELAFEN) 750 MG tablet Take 750 mg by mouth 2 (two) times a day. Active pregabalin (LYRICA) 75 MG capsule Take 75 mg by mouth nightly at bedtime. Active rimegepant (NURTEC ODT) 75 mg tablet Take 75 mg by mouth once as needed for migraine. Active sucralfate (CARAFATE) 1 gram tablet 1 g as needed. Act calixto traMADoL (ULTRAM) 50 mg tablet Take 50 mg by mouth every 6 (six) hours as needed for pain (specific location in comments). Active blood-glucose meter,continuo us (DEXCOM G7 MANAGER MERCHANDISING) MiscIndication s:Hypoglycemia by Miscellaneous route as needed. 1 each 4 Active blood-glucose sensor (DEXCOM G7 SENSOR) DeviIndication s:Hypoglycemia 1 Application by Miscellaneous route Every 10 Days. 3 each 11 4 Active octreotide acetate (MYCAPSSA) [address] capsuleIndicat ions:Hypoglyce olga Take 1 capsule (20 mg total) by mouth 2 (two) times a day. Take with a glass of water on an empty stomach, at least 1 hour before a meal or at least 2 hours after a meal. Do not crush or chew. 60 capsule 1 5 Active Active Problems Problem Noted Date Diagnosed Date Hypoglycemia 08/23/2024 Assessment & Plan (08/23/2024 10:31 AM EST): The patient has very odd symptoms the way she describes if she develops hypoglycemia even without eating which is not consistent with gastric bypass hypoglycemia or even alimentary hypoglycemia and there are distinctions between them and is usually how soon the hypoglycemia occurs. There is early gastric dumping syndrome which results in hypoglycemia within 15 minutes. This late gastric dumping syndrome that resulted in hypoglycemia 2 to 3 hours after. Gastric bypass hypoglycemia even can show hypoglycemia 4 to 6 hours after eating. 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 She finds that Acarbose has not been helpful. I suggested trying diazoxide which is actually a difficult medication to use because it comes in suspension form. It is associated with GI upset, hirsutism edema and sometimes we have to prescribe hydrochlorothiazide to prevent her edema. She states that she already has edema and she really does not want to try this medication. Lastly I suggested using octreotide which is taken twice a day in a capsule form so it is easy to administer. She will try it and see if its beneficial in preventing hypoglycemia. I will also prescribe Dexcom CGM because she states that she has to poke her fingers almost every 15 minutes when she is having a hypoglycemic symptoms hopefully the insurance will cover it. Family History Medical History Relation Comments Coronary artery disease Father Diabetes Father Hypertension Mother Lupus Mother Relation Status Comments Father Mother Alive Social History Tobacco Use Types Packs/Day Years Used Date Smoking Tobacco: Never Smokeless Tobacco: Never Tobacco Cessation:Counseling Given: Not Answered Alcohol Use Standard Drinks/Week Comments Never 0 (1 standard drink = 0.6 oz pur e alcohol) Education Answer Date Recorded Are you interested in more education? Not on azalea e 05/10/2024 Are you concerned about learning? Not on file 05/10/2024 No 05/10/2024 No 05/10/2024 Digital Access Answer Date Recorded No 05/10/2024 No 05/10/2024 Reliable internet access at home? Not on file 05/10/2024 Device with a working camera? Not on file Comments Unknown Sex and Gender Information Value Date Recorded Sex Assigned at Not on file Legal Sex Female 9:05 AM EST Gender Identity Not on file Sexual Orientation Not on file Last Filed Vital Signs Vital Sign Reading Time Taken Comments Blood Pressure 122/82 08/23/2024 9:18 AM EST Pulse 88 08/23/2024 9:18 AM EST Temperature - - Respiratory Rate - - Oxygen Saturation 99% 08/23/2024 9:18 AM EST Inhaled Oxygen Concentration - - Weight 89.4 kg (197 lb) 08/23/2024 9:18 AM EST Height 159 cm (5' 2.6 ) 08/23/2024 9:18 AM EST Body Mass Index 35.35 08/23/2024 9:18 AM EST Plan of Treatment Health Maintenance Due Date Last Done Comments Adult Td,Tdap Booster 1980 LIPID PANEL 1980 DEPRESSION SCREENING 1992 HEPATITIS C SCREENING 1998 HIV ONE-TIME SCREENING (18-6 5 YEARS) 1998 SCREENING FOR DIABETES 2015 MAMMOGRAM 2020 PAP SMEAR 06/13/2024 06/13/2021 COLOGUARD 2025 COLONOSCOPY 2025 COLORECTAL CANCER SCREENING 2025 FIT TEST 2025 FOBT 2025 SIGMOIDOSCOPY 2025 VIRTUAL COLONOSCOPY 2025 INFLUENZA VACCINE (#1) 2025 COVID-19 VACCINE ( - 2024-2 6 season) 2025 SMOKING STATUS SCREENING (On ce After 26 Yrs) Completed 08/23/2024 HEPATITIS A VACCINES Aged Out No long er eligible based on patient's age to complete this topic HIB VACCINES Aged Out No longer eligi ble based on patient's age to complete this topic MENINGOCOCCAL VACCINES (ACWY) Aged Out No longer eligible based on patient's age to complete this topic MENINGOCOCCAL VACCINES (B) Aged Out N o longer eligible based on patient's age to complete this topic PNEUMOCOCCAL VACCINES (0-49 years) Aged Out No longer eligible based on patient's age to complete this topic Medical Devices Not on file Insurance [facility] [employer] [place] [address] [address] [address] ACCESS MIGUEL ACCESS MIGUEL [facility] ACCESS MIGUEL [facility] ACCESS MIGUEL Care Teams Pipeline Executive Relationship Specialty Start Date End Date Muriel Meyer MD [address] [place] [address] PCP - General Internal Medicine 03/02/24 Additional Source Comments The information contained in this document represents components of the legal health record. It is not the complete legal health record.[facility]
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
== END 2025-10-03 08:02 | disposition home or self-care (01) ==
LOC: HO.HOSX 08:01
PROVIDERS: Visit Provider Physician Assistant
DX: M16.12 Unilateral primary osteoarthritis, left hip (principal); M76.892 Other specified enthesopathies of left lower limb, excluding foot
CPT/HCPCS: 73502

== ENCOUNTER 2025-10-03 10:30 | Outpatient (AMB) | payer OTHER, SELFPAY ==
[2025-10-03 10:36] VITALS: BMI 33.5
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
== END 2025-10-03 13:50 | disposition home or self-care (01) ==
PROVIDERS: PCP Internal Medicine; Visit Provider Physician Assistant
DX: M16.12 Unilateral primary osteoarthritis, left hip (principal); M76.892 Other specified enthesopathies of left lower limb, excluding foot
CPT/HCPCS: 99213; G2211

== ENCOUNTER → 2025-10-03 10:34 | Outpatient (BNV) | payer OTHER, SELFPAY | PROVIDERS: Visit Provider Radiology Diagnostic Radiology | DX: M16.0 Bilateral primary osteoarthritis of hip (principal) | CPT/HCPCS: 73502 ==

== ENCOUNTER 2025-10-08 08:03 | Outpatient (AMB) | payer OTHER, SELFPAY ==
--- OUTSIDE RECORDS SUMMARY | 2025-10-08 08:09 | XMS_ITS | Clinical Summary ---
Author Organization [facility] Address [address] [address] Phone Care Team Providers Care Retail Support Specialist Name Role Phone Muriel Meyer MD Primary [...] Active ferrous sulfate 325 mg (65 mg barrow iron) tablet Take 325 mg by mouth [...] comments). Active blood-glucose meter,continuo us (DEXCOM G7 MACHINE EDGE BANDER) MiscIndication s:Hypoglycemia by Miscellaneous route as needed. 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 She [...] topic Medical Devices Not on file Insurance [facility] [email or web address] [address] [address] ACCESS MIGUEL ACCESS MIGUEL [facility] ACCESS MIGUEL [facility] ACCESS MIGUEL Care Teams Retail Support Specialist Relationship Specialty Start Date End Date Muriel Meyer MD [address] [place] [address] PCP - General Internal Medicine 03/02/24 Additional Source Comments The information contained in this document represents components of the legal health record. It is not the complete legal health record.[facility]
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
--- OUTSIDE RECORDS SUMMARY | 2025-10-08 08:09 | XMS_ITS | Clinical Summary ---
Author Organization [facility] Address [address] [place] [address] Care Team Providers Care Aircraft Restorer Name Role Phone Unavailable Primary Care Provider Unavailabl e Social History Tobacco Use Types Packs/Day Years Used Date Smoking Tobacco: Never Assessed Comments Unknown Sex and Gender Information Value Date Recorded Sex Assigned at Not on file Legal Sex Female 3:09 PM EST Gender Identity Not on file Sexual Orientation Not on file Plan of Treatment Not on file
[2025-10-08 08:45] VITALS: BMI 35.1
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
== END 2025-10-08 09:41 | disposition home or self-care (01) ==
LOC: HO.HOS 08:04
PROVIDERS: PCP Internal Medicine
DX: M25.531 Pain in right wrist (principal); T14.8XXA Other injury of unspecified body region, initial encounter
CPT/HCPCS: 29075; 99213

== ENCOUNTER 2025-10-08 08:03 | Outpatient (REF) | payer OTHER, SELFPAY ==
--- NOTE | ~2025-10-08 | XR_ITS ---
EXAMINATION: XR WRIST NAVICULAR RIGHT HISTORY: M79.641 - Pain in right hand COMPARISON: There are no prior studies available for comparison. FINDINGS: Four views of the right wrist including a scaphoid view are submitted. Osseous mineralization is normal. There is no fracture or dislocation. The joint spaces are preserved. The soft tissues are unremarkable. XR/XR wrist RT w scaphoid IMPRESSION: Unremarkable examination of the right wrist. Electronically signed by: Emmanuel Blake MD 10/08/2025 09:46 AM EST
== END 2025-10-08 08:04 | disposition home or self-care (01) ==
LOC: HO.HOSX 08:03
PROVIDERS: PCP Internal Medicine
DX: M79.641 Pain in right hand (principal); T14.8XXA Other injury of unspecified body region, initial encounter
CPT/HCPCS: 29075; 73110

== ENCOUNTER → 2025-10-08 08:28 | Outpatient (BNV) | payer OTHER, SELFPAY | PROVIDERS: PCP Internal Medicine; Visit Provider Radiology Diagnostic Radiology | DX: M79.641 Pain in right hand (principal) | CPT/HCPCS: 73110 ==

== ENCOUNTER 2025-10-09 07:19 | Outpatient (AMB) | payer OTHER, SELFPAY ==
--- OUTSIDE RECORDS SUMMARY | 2025-10-09 07:22 | XMS_ITS | Clinical Summary ---
Author Organization [facility] Address [address] [place] [address] Care Team Providers Care Plumbing And Heating Contractor Name Role Phone Unavailable Primary Care Provider [...]
--- OUTSIDE RECORDS SUMMARY | 2025-10-09 07:22 | XMS_ITS | Clinical Summary ---
Author Organization [facility] Address [address] [address] Phone Care Team Providers Care Housekeeper Head Name Role Phone Muriel Meyer MD Primary [...] Active ferrous sulfate 325 mg (65 mg cachil dehe iron) tablet Take 325 mg by mouth [...] comments). Active blood-glucose meter,continuo us (DEXCOM G7 INDUCTION BRAZER) MiscIndication s:Hypoglycemia by Miscellaneous route as needed. 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 She [...] topic Medical Devices Not on file Insurance [facility] [address] [place] [address] ACCESS MIGUEL ACCESS MIGUEL [facility] ACCESS MIGUEL [facility] ACCESS MIGUEL Care Teams Housekeeper Head Relationship Specialty Start Date End Date Muriel Meyer MD [address] [place] [address] PCP - General Internal Medicine 03/02/24 Additional Source Comments The information contained in this document represents components of the legal health record. It is not the complete legal health record.[facility]
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
[2025-10-09 07:28] VITALS: BP 146/82; PULSE 82; RESP 18; TEMP 37.6; O2SAT 99; BMI 33.3
== END 2025-10-09 07:52 | disposition home or self-care (01) ==
LOC: HO.HMCH 07:20
PROVIDERS: PCP Internal Medicine; Visit Provider Internal Medicine
DX: Z00.00 Encounter for general adult medical examination without abnormal findings (principal); F32.0 Major depressive disorder, single episode, mild; M79.672 Pain in left foot; Z12.11 Encounter for screening for malignant neoplasm of colon

== ENCOUNTER 2025-10-09 07:19 | Outpatient (REF) | payer OTHER, SELFPAY ==
--- NOTE | ~2025-10-09 | XR_ITS ---
EXAMINATION: XR FOOT, LEFT CLINICAL INFORMATION: M79.672 - Pain in left foot COMPARISON: None available. TECHNIQUE: AP, lateral, and oblique views of the left foot. FINDINGS: There is soft tissue calcification medial to the neck of the middle phalanx of the second digit. There are no erosions or osteophytes. No fracture is evident. There are small to medium sized enthesophytes at the Achilles tendon and plantar fascial attachment on calcaneus. There is a dorsal talar beak. XR/XR foot LT min 3V IMPRESSION: Nonspecific focal calcification in soft tissues medial to the neck of the middle phalanx of the second digit is probably incidental. Calcaneal spurs. Electronically signed by: Kalin Cunningham MD 10/09/2025 09:43 AM ANUPAMA
[2025-10-09 08:16] LABS: MANUAL DIFF FLAG NO
[2025-10-09 08:34] LABS: Hematocrit 41.9 % (37.0-47.0); Hemoglobin 13.2 g/dl (12.0-16.0); Imm Gran Abs Auto 0.01 X10*3/uL (0.00-0.03); Imm Gran Pct Auto 0.2 % (0.0-0.4); Lymphocytes Absolute Auto 1.9 X10*3/uL (1.2-4.9); Mean Corpuscular HGB Conc 31.5 g/dl (31.0-35.0); Mean Corpuscular Hemoglobin 29.6 pg (27.0-33.0); Mean Corpuscular Volume 93.9 fL (80.0-98.0); NRBC Abs Auto 0.000 X10*3/uL (0.0-0.012); NRBC Pct Auto 0.0 /100WBC (0.0-0.2); Platelet Count 206 X10*3/uL (160-400); Red Blood Count 4.46 X10*6/uL (4.20-5.50); White Blood Count 4.4 X10*3/uL (4.8-10.8)
[2025-10-09 09:06] LABS: Alanine Aminotransferase 27 U/L (0-31); Albumin Level 4.0 g/dL (3.5-5.0); Alkaline Phosphatase 61 U/L (39-117); Anion Gap 11 (12-20); Aspartate Amino Transferase 22 U/L (5-31); Blood Urea Nitrogen 19 mg/dL (9-16); Calcium 9.0 mg/dL (8.4-10.2); Carbon Dioxide 25 mmol/L (22-29); Chloride 109 mmol/L (96-108); Cholesterol 170 mg/dL (<200); Estimated Glomerular Filt Rate > 60; HDL Cholesterol 68 mg/dL (>40); Iron 61 mcg/dL (30-160); Percent Iron Saturation 21 % (15-50); Potassium 4.5 mmol/L (3.3-5.1); Sodium 140 mmol/L (135-145); Total Iron Binding Capacity 297 mcg/dL (228-428); Total Protein 7.2 g/dL (6.5-8.0); Triglycerides 51 mg/dL (<150); Unsaturated Iron Binding 236 ug/dL
[2025-10-09 09:29] LABS: Folate 13.8 ng/mL (> or = 4.0); Vitamin B12 918 pg/mL (200-900)
== END 2025-10-09 07:20 | disposition home or self-care (01) ==
LOC: HO.XRAY 07:19
PROVIDERS: PCP Internal Medicine; Visit Provider Internal Medicine
DX: Z00.00 Encounter for general adult medical examination without abnormal findings (principal); D64.9 Anemia, unspecified; F32.0 Major depressive disorder, single episode, mild; E53.8 Deficiency of other specified B group vitamins; E55.9 Vitamin D deficiency, unspecified; E78.5 Hyperlipidemia, unspecified; M79.672 Pain in left foot
CPT/HCPCS: 36415; 73630; 80053; 80061; 82306; 82607; 82746; 83540; 85025; 99212; 99396

== ENCOUNTER → 2025-10-09 08:18 | Outpatient (BNV) | payer OTHER, SELFPAY | PROVIDERS: PCP Internal Medicine; Visit Provider Radiology Diagnostic Radiology | DX: M77.32 Calcaneal spur, left foot (principal) | CPT/HCPCS: 73630 ==